=== PATIENT | male | born 1995 | race Caucasian/White ===

== ENCOUNTER 2018-06-25 21:59 | Inpatient (IN) | payer BC, OTHER ==
[2018-06-25] MEDS ORDERED: Sodium Chloride 0.9% 1,000 ML IV SCH ×2 (22:15→22:45)
--- NOTE | 2018-06-25 22:20 | EDM.PDOC ---
ED HPI GENERAL MEDICAL PROBLEM - General Chief Complaint: Diabetic Complaint Stated Complaint: BLOOD SUGARS Time Seen by Provider: 06/25/18 22:20 Source of Information: Reports: Patient History Limitations: Reports: No Limitations - History of Present Illness INITIAL COMMENTS - FREE TEXT/NARRATIVE: pt arrived with a history of type 1 diabetes. He has not felt well for several days and particularly today. He has been nauseated and has been exhausted. His sugars are high but he has not taken extra insulin. Onset: Gradual Duration: Day(s):, Getting Worse Associated Symptoms: Reports: Loss of Appetite, Nausea/Vomiting denies pain Pain Score (Numeric/FACES): 0 - Related Data Allergies Allergy/AdvReac Type Severity Reaction Status Date / Time No Known Allergies Allergy Verified 06/25/18 22:05 Home Meds: Home Meds Insulin Aspart [NovoLOG] 1 unit SUBCUT ACBED #3 pen 05/14/14 [Rx] Insulin Detemir [Levemir] 40 unit SUBCUT QPM 06/25/18 [History] Past Medical History - Past Health History Medical/Surgical History: Denies Medical/Surgical History Social & Family History - Tobacco Use Smoking Status *Q: Never Smoker - Recreational Drug Use Recreational Drug Use: No ED ROS GENERAL - Review of Systems Review Of Systems: See Below Constitutional: Reports: No Symptoms HEENT: Reports: No Symptoms Respiratory: Reports: No Symptoms Cardiovascular: Reports: No Symptoms Endocrine: Reports: Fatigue, High Glucose GI/Abdominal: Reports: Nausea, Vomiting : Reports: No Symptoms Musculoskeletal: Reports: No Symptoms Skin: Reports: No Symptoms Neurological: Reports: No Symptoms Psychiatric: Reports: No Symptoms ED EXAM GENERAL NO PERIP PULSE - Physical Exam Exam: See Below Text/Narrative:: pt arrived very lethargic and feeling sick to his stomach. He is not confused. He vomited after arrival and does feel better. Exam Limited By: No Limitations General Appearance: Alert, Moderate Distress, Other (pupils equal and reactive, ) Ears: Normal TMs Nose: Normal Inspection Throat/Mouth: Normal Inspection Head: Atraumatic Neck: Normal Inspection Respiratory/Chest: No Respiratory Distress Cardiovascular: Regular Rate, Rhythm GI/Abdominal: Soft, Non-Tender (Male) Exam: Deferred Rectal (Males) Exam: Deferred Extremities: Normal Inspection Psychiatric: Normal Affect Course - Vital Signs Last Recorded V/S: Last Vital Signs Temp 35.7 C 06/25/18 22:06 Pulse 100 06/25/18 22:06 Resp 18 06/25/18 22:06 BP 119/66 06/25/18 22:06 Pulse Ox 96 06/25/18 22:06 - Orders/Labs/Meds Orders: Active Orders 24 hr Category Date Time Status GLUCOSE POC LAB TO COLLECT [POC] Stat Lab 06/25/18 22:26 Received UA W/MICROSCOPIC [URIN] Urgent Lab 06/25/18 22:26 Received Insulin Regular, Human [NovoLIN R] 100 unit Med 06/25/18 23:00 Ordered Sodium Chloride 0.9% [Normal Saline] 100 ml IV TITRATE Sodium Chloride 0.9% [Normal Saline] 1,000 ml Med 06/25/18 22:15 Active IV ASDIRECTED Sodium Chloride 0.9% [Normal Saline] 1,000 ml Med 06/25/18 22:45 Active IV ASDIRECTED Medication Orders Sodium Chloride (Normal Saline) 1,000 mls @ 999 mls/hr IV ASDIRECTED JOSEF Last Admin: 06/25/18 22:18 Dose: 999 mls/hr Sodium Chloride (Normal Saline) 1,000 mls @ 999 mls/hr IV ASDIRECTED JOSEF Insulin Human Regular 100 unit (/ Sodium Chloride) 100 mls @ 19.05 mls/hr IV TITRATE JOSEF; Protocol Labs: Laboratory Tests 06/25/18 06/25/18 06/25/18 Range/Units 22:26 22:26 22:26 WBC 19.3 H (4.5-11.0) K/uL RBC 5.71 (4.30-5.90) M/uL Hgb 17.4 H (12.0-15.0) g/dL Hct 49.5 (40.0-54.0) % MCV 87 (80-98) fL MCH 31 (27-31) pg MCHC 35 (32-36) % Plt Count 408 H (150-400) K/uL Neut % (Auto) 87 H (36-66) % Lymph % (Auto) 9 L (24-44) % [place] % (Auto) 3 (2-6) % Eos % (Auto) 0 L (2-4) % Baso % (Auto) 0 (0-1) % VBG pH (7.350-7.450) Sodium 133 L (140-148) mmol/L Potassium 4.8 (3.6-5.2) mmol/L Chloride 94 L (100-108) mmol/L Carbon Dioxide 10 L (21-32) mmol/L Anion Gap 33.8 H (5.0-14.0) mmol/L BUN 27 H D (7-18) mg/dL Creatinine 1.4 H D (0.8-1.3) mg/dL Est Cr Clr Drug Dosing 85.46 mL/min Estimated GFR (MDRD) > 60 (>60) Glucose 553 H* (74-106) mg/dL Calcium 9.7 D (8.5-10.1) mg/dL Total Bilirubin 0.7 (0.2-1.0) mg/dL AST 14 L (15-37) U/L ALT 29 (12-78) U/L Alkaline Phosphatase 142 H (46-116) U/L Total Protein 8.0 (6.4-8.2) g/dL Albumin 4.3 (3.4-5.0) g/dL Globulin 3.7 H (2.3-3.5) g/dL Albumin/Globulin Ratio 1.2 (1.2-2.2) Urine Color Yellow Urine Appearance Clear Urine pH 5.0 (4.5-8.0) Ur Specific [place] 1.020 (1.008-1.030) Urine Protein Negative (NEGATIVE) mg/dL Urine Glucose (UA) 1000 H (NEGATIVE) mg/dL Urine Ketones 150 H (NEGATIVE) mg/dL Urine Occult Blood Negative (NEGATIVE) Urine Nitrite Negative (NEGAITVE) Urine Bilirubin Negative (NEGATIVE) Urine Urobilinogen Normal (NORMAL) mg/dL Ur Leukocyte Esterase Negative (NEGATIVE) Urine RBC 0-5 (0-5) Urine WBC 0-5 (0-5) Ur Epithelial Cells Rare Amorphous Sediment Few Urine Bacteria Rare Urine Mucus Few 06/25/18 Range/Units 22:26 WBC (4.5-11.0) K/uL RBC (4.30-5.90) M/uL Hgb (12.0-15.0) g/dL Hct (40.0-54.0) % MCV (80-98) fL MCH (27-31) pg MCHC (32-36) % Plt Count (150-400) K/uL Neut % (Auto) (36-66) % Lymph % (Auto) (24-44) % [place] % (Auto) (2-6) % Eos % (Auto) (2-4) % Baso % (Auto) (0-1) % VBG pH 7.152 L (7.350-7.450) Sodium (140-148) mmol/L Potassium (3.6-5.2) mmol/L Chloride (100-108) mmol/L Carbon Dioxide (21-32) mmol/L Anion Gap (5.0-14.0) mmol/L BUN (7-18) mg/dL Creatinine (0.8-1.3) mg/dL Est Cr Clr Drug Dosing mL/min Estimated GFR (MDRD) (>60) Glucose (74-106) mg/dL Calcium (8.5-10.1) mg/dL Total Bilirubin (0.2-1.0) mg/dL AST (15-37) U/L ALT (12-78) U/L Alkaline Phosphatase (46-116) U/L Total Protein (6.4-8.2) g/dL Albumin (3.4-5.0) g/dL Globulin (2.3-3.5) g/dL Albumin/Globulin Ratio (1.2-2.2) Urine Color Urine Appearance Urine pH (4.5-8.0) Ur Specific [place] (1.008-1.030) Urine Protein (NEGATIVE) mg/dL Urine Glucose (UA) (NEGATIVE) mg/dL Urine Ketones (NEGATIVE) mg/dL Urine Occult Blood (NEGATIVE) Urine Nitrite (NEGAITVE) Urine Bilirubin (NEGATIVE) Urine Urobilinogen (NORMAL) mg/dL Ur Leukocyte Esterase (NEGATIVE) Urine RBC (0-5) Urine WBC (0-5) Ur Epithelial Cells Amorphous Sediment Urine Bacteria Urine Mucus Meds: Medications Generic Name Dose Route Start Last Admin Trade Name Freq PRN Reason Stop Dose Admin Sodium Chloride 1,000 mls @ 999 mls/hr 06/25/18 22:15 06/25/18 22:18 Normal Saline IV 999 mls/hr ASDIRECTED JOSEF Administration Sodium Chloride 1,000 mls @ 999 mls/hr 06/25/18 22:45 Normal Saline IV ASDIRECTED JOSEF Insulin Human Regular 100 unit 100 mls @ 19.05 mls/hr 06/25/18 23:00 / Sodium Chloride IV TITRATE JOSEF Protocol 0.2 UNITS/KG/HR Discontinued Medications Generic Name Dose Route Start Last Admin Trade Name Carloz PRN Reason Stop Dose Admin Insulin Human Regular 5 unit 06/25/18 23:00 Novolin R IVPUSH 06/25/18 23:01 ONETIME ONE Protocol Ondansetron HCl 4 mg 06/25/18 22:44 06/25/18 22:52 Zofran IVPUSH 06/25/18 22:45 4 mg ONETIME ONE Administration - Re-Assessments/Exams Free Text/Narrative Re-Assessment/Exam: 06/25/18 23:03 Because his bs has been high he has been working with the dietian to get it down. He works in [employer] at [employer] so he does do alot of walking. He does not exercise regularly otherwise. He does work [employer] so his scheduling of his insulin is difficult. 06/25/18 23:06 pt has a ph of 7.1 and he has a high anion gap. He will be started on a insulin drip and he will be given insulin--regular 5 units. --iv. Departure - Departure Time of Disposition: 23:08 Disposition: Admitted As Inpatient 66 Condition: Fair Clinical Impression: Diabetic ketoacidosis, Dehydration - Discharge Information Referrals: Ravin Loco MD [Primary Care Provider] - Forms: ED Department Discharge Care Plan Goals: admit to Dr Her. - My Orders Last 24 Hours: My Active Orders 06/25/18 22:15 Sodium Chloride 0.9% [Normal Saline] 1,000 ml IV ASDIRECTED 06/25/18 22:26 GLUCOSE POC LAB TO COLLECT [POC] Stat UA W/MICROSCOPIC [URIN] Urgent 06/25/18 22:45 Sodium Chloride 0.9% [Normal Saline] 1,000 ml IV ASDIRECTED 06/25/18 23:00 Insulin Regular, Human [NovoLIN R] 100 unit Sodium Chloride 0.9% [Normal Saline] 100 ml IV TITRATE - Assessment/Plan Last 24 Hours: My Active Orders 06/25/18 22:15 Sodium Chloride 0.9% [Normal Saline] 1,000 ml IV ASDIRECTED 06/25/18 22:26 GLUCOSE POC LAB TO COLLECT [POC] Stat UA W/MICROSCOPIC [URIN] Urgent 06/25/18 22:45 Sodium Chloride 0.9% [Normal Saline] 1,000 ml IV ASDIRECTED 06/25/18 23:00 Insulin Regular, Human [NovoLIN R] 100 unit Sodium Chloride 0.9% [Normal Saline] 100 ml IV TITRATE
[2018-06-25] MEDS ORDERED: Ondansetron 4 MG/2 ML SDV IVPUSH ONE (22:44)
[2018-06-25] MEDS ORDERED: Insulin Regular, Human 100 Units/ML 10 ML Vial IVPUSH ONE (23:00)
--- NOTE | 2018-06-25 23:57 | PCM.HP ---
H&P History of Present Illness - General Date of Service: 06/25/18 Admit Problem/Dx: Admission Diagnosis/Problem Admission Diagnosis/Problem Diabetic ketoacidosis Source of Information: Patient, Family, Provider History Limitations: Reports: No Limitations - History of Present Illness Initial Comments - Free Text/Narative: Adam presents to the emergency room tonight with nausea, fatigue and hyperglycemia. He reports that he has not felt well over the last several days with fatigue and some nausea. Blood sugars have been running between 250 and 350 but this is his usual level. He reports he has been working with diabetic educators but doesn't seem to make any progress with his blood sugars. This afternoon around 4 PM he developed palpitations, profound fatigue as well as progressive nausea. He was very sleepy. He did not report headache, shortness of breath or abdominal pain. He did have one episode of emesis in the emergency room this evening. He reports that his blood sugars also jumped up greater than 500 afternoon/evening. He was not eating anything so he elected not to take extra insulin at that time. He has not had any fevers. He is not aware of any sick contacts. No reports of cough, sore throat or urinary symptoms. Workup in the emergency room was suggestive of diabetic ketoacidosis with significant hyperglycemia, elevated anion gap and ketones in the urine. His venous pH was 7.1. He also has a white blood cell count of 19,000 but no strong evidence for infection. He has received 5 units of insulin as well as IV fluids and will be admitted for further management. denies pain Pain Score (Numeric/FACES): 0 - Related Data Allergies/Adverse Reactions: Allergies Allergy/AdvReac Type Severity Reaction Status Date / Time No Known Allergies Allergy Verified 06/25/18 22:05 Home Medications: Home Meds Insulin Aspart [NovoLOG] 1 unit SUBCUT ACBED #3 pen 05/14/14 [Rx] Insulin Detemir [Levemir] 40 unit SUBCUT QPM 06/25/18 [History] Past Medical History - Past Health History Medical/Surgical History: Denies Medical/Surgical History Endocrine/Metabolic History: Reports: Diabetes, Type I - Infectious Disease History Infectious Disease History: Reports: Chicken Pox Social & Family History - Family History Endocrine/Metabolic: Denies: Diabetes, Type I - Tobacco Use Smoking Status *Q: Never Smoker - Alcohol Use Alcohol Use History: No - Recreational Drug Use Recreational Drug Use: No H&P Review of Systems - Review of Systems: Review Of Systems: See Below Free Text/Narrative: A complete 12 point review of systems was obtained. Pertinent positives and negatives are noted in the history of present illness. All other systems were reviewed and were negative except as noted. Exam - Exam Exam: See Below - Vital Signs Vital Signs: Last Vital Signs Temp 35.7 C 06/25/18 22:06 Pulse 100 06/25/18 22:06 Resp 18 06/25/18 22:06 BP 119/66 06/25/18 22:06 Pulse Ox 96 06/25/18 22:06 Weight: 95.254 kg - Exam Quality Assessment: No: Supplemental Oxygen General: Alert, Oriented, Cooperative. No: Mild Distress HEENT: Conjunctiva Clear. No: Mucosa Moist & [place] (dry), Scleral Icterus Neck: Supple, Trachea Midline. No: Lymphadenopathy Lungs: Clear to Auscultation, Normal Respiratory Effort Cardiovascular: Regular Rhythm, Tachycardia. No: Systolic Murmur GI/Abdominal Exam: Normal Bowel Sounds, Soft, Non-Tender, No Distention Back Exam: Normal Inspection, Full Range of Motion Extremities: No Pedal Edema. No: Increased Warmth Skin: Warm, Dry Neuro Extensive - Mental Status: Alert, Oriented x3, Nl Response to Commands Neuro Extensive - Motor, Sensory, Reflexes: CN II-XII Intact. No: Dysarthria, Abnormal Motor, Tremor Psychiatric: Alert, Normal Affect - Patient Data Lab Results Last 24 hrs: Laboratory Results - last 24 hr 06/25/18 06/25/18 06/25/18 Range/Units 22:26 22:26 22:26 WBC 19.3 H (4.5-11.0) K/uL RBC 5.71 (4.30-5.90) M/uL Hgb 17.4 H (12.0-15.0) g/dL Hct 49.5 (40.0-54.0) % MCV 87 (80-98) fL MCH 31 (27-31) pg MCHC 35 (32-36) % Plt Count 408 H (150-400) K/uL Neut % (Auto) 87 H (36-66) % Lymph % (Auto) 9 L (24-44) % [place] % (Auto) 3 (2-6) % Eos % (Auto) 0 L (2-4) % Baso % (Auto) 0 (0-1) % VBG pH (7.350-7.450) Sodium 133 L (140-148) mmol/L Potassium 4.8 (3.6-5.2) mmol/L Chloride 94 L (100-108) mmol/L Carbon Dioxide 10 L (21-32) mmol/L Anion Gap 33.8 H (5.0-14.0) mmol/L BUN 27 H D (7-18) mg/dL Creatinine 1.4 H D (0.8-1.3) mg/dL Est Cr Clr Drug Dosing 85.46 mL/min Estimated GFR (MDRD) > 60 (>60) Glucose 553 H* (74-106) mg/dL Calcium 9.7 D (8.5-10.1) mg/dL Total Bilirubin 0.7 (0.2-1.0) mg/dL AST 14 L (15-37) U/L ALT 29 (12-78) U/L Alkaline Phosphatase 142 H (46-116) U/L Total Protein 8.0 (6.4-8.2) g/dL Albumin 4.3 (3.4-5.0) g/dL Globulin 3.7 H (2.3-3.5) g/dL Albumin/Globulin Ratio 1.2 (1.2-2.2) Urine Color Yellow Urine Appearance Clear Urine pH 5.0 (4.5-8.0) Ur Specific [place] 1.020 (1.008-1.030) Urine Protein Negative (NEGATIVE) mg/dL Urine Glucose (UA) 1000 H (NEGATIVE) mg/dL Urine Ketones 150 H (NEGATIVE) mg/dL Urine Occult Blood Negative (NEGATIVE) Urine Nitrite Negative (NEGAITVE) Urine Bilirubin Negative (NEGATIVE) Urine Urobilinogen Normal (NORMAL) mg/dL Ur Leukocyte Esterase Negative (NEGATIVE) Urine RBC 0-5 (0-5) Urine WBC 0-5 (0-5) Ur Epithelial Cells Rare Amorphous Sediment Few Urine Bacteria Rare Urine Mucus Few 06/25/18 Range/Units 22:26 WBC (4.5-11.0) K/uL RBC (4.30-5.90) M/uL Hgb (12.0-15.0) g/dL Hct (40.0-54.0) % MCV (80-98) fL MCH (27-31) pg MCHC (32-36) % Plt Count (150-400) K/uL Neut % (Auto) (36-66) % Lymph % (Auto) (24-44) % [place] % (Auto) (2-6) % Eos % (Auto) (2-4) % Baso % (Auto) (0-1) % VBG pH 7.152 L (7.350-7.450) Sodium (140-148) mmol/L Potassium (3.6-5.2) mmol/L Chloride (100-108) mmol/L Carbon Dioxide (21-32) mmol/L Anion Gap (5.0-14.0) mmol/L BUN (7-18) mg/dL Creatinine (0.8-1.3) mg/dL Est Cr Clr Drug Dosing mL/min Estimated GFR (MDRD) (>60) Glucose (74-106) mg/dL Calcium (8.5-10.1) mg/dL Total Bilirubin (0.2-1.0) mg/dL AST (15-37) U/L ALT (12-78) U/L Alkaline Phosphatase (46-116) U/L Total Protein (6.4-8.2) g/dL Albumin (3.4-5.0) g/dL Globulin (2.3-3.5) g/dL Albumin/Globulin Ratio (1.2-2.2) Urine Color Urine Appearance Urine pH (4.5-8.0) Ur Specific [place] (1.008-1.030) Urine Protein (NEGATIVE) mg/dL Urine Glucose (UA) (NEGATIVE) mg/dL Urine Ketones (NEGATIVE) mg/dL Urine Occult Blood (NEGATIVE) Urine Nitrite (NEGAITVE) Urine Bilirubin (NEGATIVE) Urine Urobilinogen (NORMAL) mg/dL Ur Leukocyte Esterase (NEGATIVE) Urine RBC (0-5) Urine WBC (0-5) Ur Epithelial Cells Amorphous Sediment Urine Bacteria Urine Mucus Result Diagrams: 06/25/18 22:26 06/25/18 22:26 *Q Meaningful Use (ADM) - VTE Risk Assess *Q Each Risk Factor Represents 1 Point: None Total Score 1 Point Risk Factors: 0 Each Risk Factor Represents 2 Points: None Total Score 2 Point Risk Factors: 0 Each Risk Factor Represents 3 Points: None Total Score 3 Point Risk Factors: 0 Each Risk Factor Represents 5 Points: None Total Score 5 Point Risk Factors: 0 Venous Thromboembolism Risk Factor Score *Q: 0 - Problem List (1) Ketoacidosis in type I diabetes mellitus SNOMED Code(s): 237166289 ICD Code: E10.10 - TYPE 1 DIABETES MELLITUS WITH KETOACIDOSIS WITHOUT COMA Status: Acute Current Visit: No Problem List Initiated/Reviewed/Updated: Yes Orders Last 24hrs: Active Orders 24 hr Category Date Time Status Patient Status Manage Transfer [TRANSFER] Routine ADT 06/25/18 23:49 Ordered GLUCOSE POC LAB TO COLLECT [POC] Stat Lab 06/25/18 22:26 Received UA W/MICROSCOPIC [URIN] Urgent Lab 06/25/18 22:26 Ordered Insulin Regular, Human [NovoLIN R] 100 unit Med 06/25/18 23:00 Active Sodium Chloride 0.9% [Normal Saline] 100 ml IV TITRATE Sodium Chloride 0.9% [Normal Saline] 1,000 ml Med 06/25/18 22:15 Active IV ASDIRECTED Sodium Chloride 0.9% [Normal Saline] 1,000 ml Med 06/25/18 22:45 Active IV ASDIRECTED Resuscitation Status Routine Resus Stat 06/25/18 23:49 Ordered Medication Orders Sodium Chloride (Normal Saline) 1,000 mls @ 999 mls/hr IV ASDIRECTED JOSEF Last Admin: 06/25/18 22:18 Dose: 999 mls/hr Sodium Chloride (Normal Saline) 1,000 mls @ 999 mls/hr IV ASDIRECTED JOSEF Last Admin: 06/25/18 23:20 Dose: 999 mls/hr Insulin Human Regular 100 unit (/ Sodium Chloride) 100 mls @ 9.52 mls/hr IV TITRATE JOSEF; Protocol Assessment/Plan Comment:: ASSESSMENT AND PLAN - Diabetic ketoacidosis - no evidence for infection at this time and patient does not report any alcohol or illicit substance use. I suspect his troubles are related to medically elevated blood sugars with worsening throughout the day today. He reports poor control at home. He is feeling better with some IV fluids and anti-nausea medication. Blood sugar significantly elevated and anion gap is greater than 30. -Start insulin infusion -Every hour Accu-Cheks -Repeat anion gap and chemistry panel at 5 AM -Continue normal saline until anion gap is closed, changed to D5 normal saline if anion gap remains elevated but blood sugar begins to normalize -Diabetic education tomorrow -Transition to subcutaneous insulin once anion gap has normalized Type 1 diabetes mellitus - suboptimal control reported, patient reports he is working with the tobacco educator. Currently taking 2 units per 15 g of carbohydrate and 40 units of Lantus at bedtime. -Diabetic education -Transition to subcutaneous as above Maintenance issues - - DVT prophylaxis - mechanical - GI prophylaxis - not indicated - Nutrition - clear liquids - [place] catheter - not indicated CODE STATUS - full code Admission justification - This patient will be admitted for inpatient services and is medically appropriate meeting medical necessity for inpatient admission as outlined in my documentation. I reasonably expect the patient will require inpatient services that span a period time over 2 midnights. I reasonably expect this patient to be discharged or transferred within 96 hours [facility]. Disposition - anticipate discharge to home Primary care physician - Dr Claudy Her M.D.
[2018-06-26] MEDS ORDERED: Acetaminophen 325 MG Tab PO PRN (00:46)
[2018-06-26] MEDS ORDERED: Ibuprofen 400 MG Tab PO PRN (00:46)
[2018-06-26] MEDS ORDERED: Ondansetron 4 MG/2 ML SDV IV PRN (00:46)
[2018-06-26] MEDS ORDERED: LORazepam 2 MG/ML SDV IVPUSH PRN (00:46)
[2018-06-26] MEDS ORDERED: Sodium Chloride 0.9% 1,000 ML IV SCH (00:46)
[2018-06-26] MEDS ORDERED: Ondansetron 4 MG Tab.DIS PO PRN (00:46)
[2018-06-26] MEDS ORDERED: Dextrose 5%-0.9% NaCl 1,000 ML IV SCH (05:30)
[2018-06-26] MEDS ORDERED: Insulin Detemir 100 Units/ML 3 ML Pen SUBCUT ONE (14:47)
[2018-06-26] MEDS ORDERED: Insulin Aspart 100 Units/ML 3 ML Pen SUBCUT SCH (17:00)
--- NOTE | 2018-06-26 18:39 | PCM.DCSUM1 ---
Discharge Summary - Hospital Course Brief History: 22-year-old male with type 1 diabetes mellitus who presented with several days of fatigue and nausea complicated by acute hyperglycemia and worsening nausea. He was admitted for management of diabetic ketoacidosis. Diagnosis: Stroke: No - Discharge Data Discharge Date: 06/26/18 Discharge Disposition: Home, Self-Care 01 Condition: Good - Patient Summary/Data Hospital Course: Adam presented to the emergency room with worsening nausea as well as acute hyperglycemia. Workup in the emergency room revealed leukocytosis and evidence for diabetic ketoacidosis. He received a dose of IV insulin in the emergency room and then was started on an insulin infusion. He received 2 L of IV fluid in the emergency room. He was admitted to the intensive care unit for insulin infusion. Blood sugars trended down throughout the night after admission. 4 hours after the insulin drip was started we rechecked his electrolytes and his anion gap remained elevated at more than 20. We continued the insulin drip until his blood sugar was below 200 and at that point because the anion gap was still elevated we started him on a dextrose containing saline. Repeat laboratory testing 4 hours after the litigation claim representative check revealed that his anion gap remained mildly elevated. We continue the insulin drip dextrose- containing saline for an additional 4 hours. At this point his anion gap had normalized. We discontinue the insulin infusion about one hour after he received his evening dose of long-acting insulin. Blood sugars have remained stable since that time. His nausea has resolved and he tolerated supper with no difficulty. He has not had any abdominal pain or fevers. I suspect that the episode of DKA was caused by a smoldering hyperglycemia with more acute decompensation on the evening of presentation. He has been working with the coding educator. He has follow-up scheduled early next week. No changes to his medication regimen were made. - Patient Instructions Diet: Diabetic Diet Activity: As Tolerated Driving: May Drive Today Showering/Bathing: May Shower Notify Provider of: Fever, Increased Pain, Nausea and/or Vomiting Other/Special Instructions: 1. You were in the hospital for management of type 1 diabetes with ketoacidosis. I suspect the episode was caused by a slow progression of hyperglycemia. There was no evidence for infection. Blood sugars have improved with hydration and insulin infusion. I would recommend that you continue your usual regimen at home with long-acting at night as well as mealtime insulin. Please follow-up as scheduled with your coding educator. 2. Please seek medical attention if you develop fever greater than 101, you have registered dental assistant rda abdominal pain or persistent vomiting. - Discharge Plan *PRESCRIPTION DRUG MONITORING PROGRAM REVIEWED*: Not Applicable *COPY OF PRESCRIPTION DRUG MONITORING REPORT IN PATIENT HERBERT: Not Applicable Home Medications: Home Meds Insulin Aspart [NovoLOG] 1 unit SUBCUT ACBED #3 pen 05/14/14 [Rx] Insulin Detemir [Levemir] 40 unit SUBCUT QPM 06/25/18 [History] Patient Handouts: Diabetic Ketoacidosis Referrals: Ravin Loco MD [Primary Care Provider] - (follow-up in 1-2 weeks if your blood sugars do not stabilize) - Discharge Summary/Plan Comment DC Time >30 min.: No - Patient Data Vitals - Most Recent: Last Vital Signs Temp 36.3 C 06/26/18 18:00 Pulse 84 06/26/18 18:00 Resp 17 06/26/18 18:00 BP 96/53 L 06/26/18 18:00 Pulse Ox 98 06/26/18 18:00 Weight - Most Recent: 94.166 kg I&O - Last 24 hours: Intake & Output 06/26/18 06/26/18 06/26/18 06:59 14:59 22:59 Intake Total 1075 880 Output Total 800 850 Balance 275 30 Lab Results - Last 24 hrs: Laboratory Results - last 24 hr 06/25/18 06/25/18 06/25/18 Range/Units 22:26 22:26 22:26 WBC 19.3 H (4.5-11.0) K/uL RBC 5.71 (4.30-5.90) M/uL Hgb 17.4 H (12.0-15.0) g/dL Hct 49.5 (40.0-54.0) % MCV 87 (80-98) fL MCH 31 (27-31) pg MCHC 35 (32-36) % Plt Count 408 H (150-400) K/uL Neut % (Auto) 87 H (36-66) % Lymph % (Auto) 9 L (24-44) % Lucas % (Auto) 3 (2-6) % Eos % (Auto) 0 L (2-4) % Baso % (Auto) 0 (0-1) % VBG pH (7.350-7.450) Sodium 133 L (140-148) mmol/L Potassium 4.8 (3.6-5.2) mmol/L Chloride 94 L (100-108) mmol/L Carbon Dioxide 10 L (21-32) mmol/L Anion Gap 33.8 H (5.0-14.0) mmol/L BUN 27 H D (7-18) mg/dL Creatinine 1.4 H D (0.8-1.3) mg/dL Est Cr Clr Drug Dosing 85.46 mL/min Estimated GFR (MDRD) > 60 (>60) Glucose 553 H* (74-106) mg/dL Calcium 9.7 D (8.5-10.1) mg/dL Magnesium (1.8-2.4) mg/dL Total Bilirubin 0.7 (0.2-1.0) mg/dL AST 14 L (15-37) U/L ALT 29 (12-78) U/L Alkaline Phosphatase 142 H (46-116) U/L Total Protein 8.0 (6.4-8.2) g/dL Albumin 4.3 (3.4-5.0) g/dL Globulin 3.7 H (2.3-3.5) g/dL Albumin/Globulin Ratio 1.2 (1.2-2.2) Urine Color Yellow Urine Appearance Clear Urine pH 5.0 (4.5-8.0) Ur Specific [place] 1.020 (1.008-1.030) Urine Protein Negative (NEGATIVE) mg/dL Urine Glucose (UA) 1000 H (NEGATIVE) mg/dL Urine Ketones 150 H (NEGATIVE) mg/dL Urine Occult Blood Negative (NEGATIVE) Urine Nitrite Negative (NEGAITVE) Urine Bilirubin Negative (NEGATIVE) Urine Urobilinogen Normal (NORMAL) mg/dL Ur Leukocyte Esterase Negative (NEGATIVE) Urine RBC 0-5 (0-5) Urine WBC 0-5 (0-5) Ur Epithelial Cells Rare Amorphous Sediment Few Urine Bacteria Rare Urine Mucus Few 06/25/18 06/26/18 06/26/18 Range/Units 22:26 05:35 05:35 WBC 16.6 H (4.5-11.0) K/uL RBC 5.12 (4.30-5.90) M/uL Hgb 15.2 H D (12.0-15.0) g/dL Hct 44.3 (40.0-54.0) % MCV 87 (80-98) fL MCH 30 (27-31) pg MCHC 34 (32-36) % Plt Count 329 (150-400) K/uL Neut % (Auto) (36-66) % Lymph % (Auto) (24-44) % Lucas % (Auto) (2-6) % Eos % (Auto) (2-4) % Baso % (Auto) (0-1) % VBG pH 7.152 L (7.350-7.450) Sodium 137 L (140-148) mmol/L Potassium 4.5 (3.6-5.2) mmol/L Chloride 105 (100-108) mmol/L Carbon Dioxide 16 L (21-32) mmol/L Anion Gap 20.5 H (5.0-14.0) mmol/L BUN 22 H (7-18) mg/dL Creatinine 1.2 (0.8-1.3) mg/dL Est Cr Clr Drug Dosing 99.70 mL/min Estimated GFR (MDRD) > 60 (>60) Glucose 140 H (74-106) mg/dL Calcium 8.3 L (8.5-10.1) mg/dL Magnesium 2.0 (1.8-2.4) mg/dL Total Bilirubin (0.2-1.0) mg/dL AST (15-37) U/L ALT (12-78) U/L Alkaline Phosphatase (46-116) U/L Total Protein (6.4-8.2) g/dL Albumin (3.4-5.0) g/dL Globulin (2.3-3.5) g/dL Albumin/Globulin Ratio (1.2-2.2) Urine Color Urine Appearance Urine pH (4.5-8.0) Ur Specific [place] (1.008-1.030) Urine Protein (NEGATIVE) mg/dL Urine Glucose (UA) (NEGATIVE) mg/dL Urine Ketones (NEGATIVE) mg/dL Urine Occult Blood (NEGATIVE) Urine Nitrite (NEGAITVE) Urine Bilirubin (NEGATIVE) Urine Urobilinogen (NORMAL) mg/dL Ur Leukocyte Esterase (NEGATIVE) Urine RBC (0-5) Urine WBC (0-5) Ur Epithelial Cells Amorphous Sediment Urine Bacteria Urine Mucus 06/26/18 06/26/18 Range/Units 10:00 13:50 WBC (4.5-11.0) K/uL RBC (4.30-5.90) M/uL Hgb (12.0-15.0) g/dL Hct (40.0-54.0) % MCV (80-98) fL MCH (27-31) pg MCHC (32-36) % Plt Count (150-400) K/uL Neut % (Auto) (36-66) % Lymph % (Auto) (24-44) % Lucas % (Auto) (2-6) % Eos % (Auto) (2-4) % Baso % (Auto) (0-1) % VBG pH (7.350-7.450) Sodium 137 L 137 L (140-148) mmol/L Potassium 4.0 3.7 (3.6-5.2) mmol/L Chloride 106 107 (100-108) mmol/L Carbon Dioxide 18 L 21 (21-32) mmol/L Anion Gap 17.0 H 12.7 (5.0-14.0) mmol/L BUN 19 H 17 (7-18) mg/dL Creatinine 1.2 1.1 (0.8-1.3) mg/dL Est Cr Clr Drug Dosing 99.70 108.76 mL/min Estimated GFR (MDRD) > 60 > 60 (>60) Glucose 154 H 123 H (74-106) mg/dL Calcium 8.2 L 8.1 L (8.5-10.1) mg/dL Magnesium (1.8-2.4) mg/dL Total Bilirubin (0.2-1.0) mg/dL AST (15-37) U/L ALT (12-78) U/L Alkaline Phosphatase (46-116) U/L Total Protein (6.4-8.2) g/dL Albumin (3.4-5.0) g/dL Globulin (2.3-3.5) g/dL Albumin/Globulin Ratio (1.2-2.2) Urine Color Urine Appearance Urine pH (4.5-8.0) Ur Specific [place] (1.008-1.030) Urine Protein (NEGATIVE) mg/dL Urine Glucose (UA) (NEGATIVE) mg/dL Urine Ketones (NEGATIVE) mg/dL Urine Occult Blood (NEGATIVE) Urine Nitrite (NEGAITVE) Urine Bilirubin (NEGATIVE) Urine Urobilinogen (NORMAL) mg/dL Ur Leukocyte Esterase (NEGATIVE) Urine RBC (0-5) Urine WBC (0-5) Ur Epithelial Cells Amorphous Sediment Urine Bacteria Urine Mucus Med Orders - Current: Current Medications Acetaminophen (Tylenol) 650 mg PO Q4H PRN PRN Reason: Pain (Mild 1-3)/fever Ibuprofen (Motrin) 400 mg PO Q6H PRN PRN Reason: Pain (mild 1-3) Insulin Aspart (Novolog) 0 unit SUBCUT TIDMEALS [facility] Last Admin: 06/26/18 18:22 Dose: Not Given Lorazepam (Ativan) 0.5 - 1 mg IVPUSH Q4H PRN PRN Reason: Nausea/Vomiting Ondansetron HCl (Zofran Odt) 4 mg PO Q6H PRN PRN Reason: Nausea able to take PO Ondansetron HCl (Zofran) 4 mg IV Q6H PRN PRN Reason: Nausea/Vomiting Discontinued Medications Sodium Chloride (Normal Saline) 1,000 mls @ 999 mls/hr IV ASDIRECTED [facility] Last Admin: 06/25/18 22:18 Dose: 999 mls/hr Sodium Chloride (Normal Saline) 1,000 mls @ 999 mls/hr IV ASDIRECTED [facility] Last Admin: 06/25/18 23:20 Dose: 999 mls/hr Insulin Human Regular 100 unit (/ Sodium Chloride) 100 mls @ 9.52 mls/hr IV TITRATE [facility]; Protocol Stop: 06/26/18 16:00 Last Titration: 06/26/18 05:16 Dose: 0.05 units/kg/hr, 5.3 mls/hr Sodium Chloride (Normal Saline) 1,000 mls @ 150 mls/hr IV ASDIRECTED [facility] Last Admin: 06/26/18 01:24 Dose: 150 mls/hr Dextrose/Sodium Chloride (Dextrose 5%-Normal Saline) 1,000 mls @ 100 mls/hr IV ASDIRECTED [facility] Insulin Detemir (Levemir) 40 unit SUBCUT ONETIME ONE Stop: 06/26/18 14:48 Last Admin: 06/26/18 15:26 Dose: 40 units Insulin Human Regular (Novolin R) 5 unit IVPUSH ONETIME ONE; Protocol Stop: 06/25/18 23:01 Last Admin: 06/25/18 23:12 Dose: 5 units Ondansetron HCl (Zofran) 4 mg IVPUSH ONETIME ONE Stop: 06/25/18 22:45 Last Admin: 06/25/18 22:52 Dose: 4 mg - Exam Quality Assessment: Denies: Supplemental Oxygen General: Reports: Alert, Oriented, Cooperative, No Acute Distress Lungs: Reports: Normal Respiratory Effort GI/Abdominal Exam: Soft, No Distention Extremities: No Pedal Edema Psy/Mental Status: Reports: Alert, Normal Affect
== END 2018-06-26 18:40 | disposition home or self-care (01) | DRG 639 ==
LOC: JP.ED 21:59 → JP.ICU 23:49
PROVIDERS: ADMIT Internal Medicine; ATTEND Internal Medicine
DX: E10.10 Type 1 diabetes mellitus with ketoacidosis without coma (principal); Z79.4 Long term (current) use of insulin; E86.0 Dehydration
CPT/HCPCS: 36415; 80048; 80053; 81001; 82800; 82962; 83735; 85025; 85027; 96361; 96374; 99285-25; A9270-GY; J2405; J7030

== ENCOUNTER 2021-09-21 06:21 | Inpatient (IN) | payer OTHER ==
[2021-09-21] MEDS ORDERED: Ondansetron 4 MG/2 ML SDV IVPUSH ONE (06:36)
[2021-09-21] MEDS ORDERED: Sodium Chloride 0.9% 1,000 ML IV SCH ×2 (06:45→13:15)
--- NOTE | 2021-09-21 07:24 | EDM.PDOC ---
ED HPI GENERAL MEDICAL PROBLEM - General Chief Complaint: Gastrointestinal Problem Stated Complaint: COVID POS-VOMITING DIABETIC Time Seen by Provider: 09/21/21 07:05 Source of Information: Reports: Patient, Old Records, RN History Limitations: Reports: No Limitations - History of Present Illness INITIAL COMMENTS - FREE TEXT/NARRATIVE: 25 yo male with IDDM and a positive recent Covid test presents with nausea and vomiting with onset early this AM. Was apparently dx the end of last week with Covid, but was pretty asymptomatic until this past weekend. Didn't check his BS last night, but was 350 when he awoke this AM. No blood in his emesis. No diarrhea. No abdominal pain. Has not discuss his illness with his primary care provider. Onset: Gradual Onset Date: 09/15/21 Duration: Day(s):, Getting Worse Location: Reports: Generalized Quality: Reports: Other (pain not reported) Severity: Severe (overall degree of illness) Improves with: Reports: None Worsens with: Reports: Other (time) Context: Reports: Other (See HPI) Associated Symptoms: Reports: Nausea/Vomiting. Denies: Cough, Fever/Chills Treatments POWER LINEWORKER: Reports: Other (see below) (none) Chest Pain Score (Numeric/FACES): 10 - Related Data Allergies Allergy/AdvReac Type Severity Reaction Status Date / Time No Known Allergies Allergy Verified 09/21/21 06:57 Home Meds: Home Meds Insulin Aspart [NovoLOG] 1 unit SUBCUT ACBED #3 pen 05/14/14 [Rx] Insulin Detemir [Levemir] 50 unit SUBCUT QPM 06/25/18 [History] Past Medical History - Past Health History Medical/Surgical History: Denies Medical/Surgical History HEENT History: Reports: Impaired Vision Endocrine/Metabolic History: Reports: Diabetes, Type I - Infectious Disease History Infectious Disease History: Reports: Chicken Pox, Novel Coronavirus Social & Family History - Tobacco Use Tobacco Use Status *Q: Never Tobacco User - Caffeine Use Caffeine Use: Reports: Coffee Caffeine Use Comment: occasional - Recreational Drug Use Recreational Drug Use: No ED ROS GENERAL - Review of Systems Review Of Systems: See Below Constitutional: Reports: Malaise. Denies: Fever, Chills HEENT: Reports: No Symptoms Respiratory: Reports: No Symptoms Cardiovascular: Reports: Lightheadedness Endocrine: Reports: High Glucose GI/Abdominal: Reports: Nausea, Vomiting : Reports: No Symptoms Musculoskeletal: Reports: No Symptoms Skin: Reports: No Symptoms Neurological: Reports: No Symptoms ED EXAM, GI/ABD - Physical Exam Exam: See Below Exam Limited By: No Limitations General Appearance: Alert, WD/WN, No Apparent Distress, Mild Distress Eyes: Bilateral: Normal Appearance Ears: Normal External Exam, Normal Canal, Hearing Grossly Normal Nose: Normal Inspection, No Blood Throat/Mouth: Normal Inspection, Normal Lips, Normal Oropharynx, Normal Voice, No Airway Compromise Head: Atraumatic, Normocephalic Neck: Normal Inspection Respiratory/Chest: Lungs Clear, Normal Breath Sounds, No Accessory Muscle Use, Other (tachypnea) Cardiovascular: Regular Rate, Rhythm, No Edema, Tachycardia GI/Abdominal Exam: Normal Bowel Sounds, Soft, Non-Tender, No Distention. No: Distended Back Exam: Normal Inspection. No: CVA Tenderness (R), CVA Tenderness (L) Extremities: Normal Inspection, Normal Range of Motion, Non-Tender, No Pedal Edema. No: Pedal Edema Neurological: Alert, Oriented, CN II-XII Intact, Normal Cognition, No Motor/Sens ory Deficits Psychiatric: Normal Affect, Normal Mood Skin Exam: Warm, Dry, Intact, Normal Color, No Rash #1 Interpretation EKG Date: 09/21/21 Time: 09:15 Rhythm: NSR Rate (Beats/Min): 98 [place]: RAD-Right [place] Deviation P-Wave: Present QRS: Normal ST-T: Normal QT: Normal Comparison: NA - No Prior EKG Course - Vital Signs Text/Narrative:: [facility] called for a transfer, has been put on their waiting list. No beds here. Last Recorded V/S: Last Vital Signs Temp 36.4 C 09/23/21 04:00 Pulse 75 09/23/21 06:00 Resp 22 H 09/23/21 06:00 BP 100/65 09/23/21 06:00 Pulse Ox 97 09/23/21 06:00 - Orders/Labs/Meds Orders: Medication Orders Acetaminophen (Acetaminophen 325 Mg Tab) 650 mg PO Q4H PRN PRN Reason: Pain (Mild 1-3)/fever Dextrose/Water (50% Dextrose In Water 50 Ml Syringe) 50 ml IVPUSH ONETIME PRN PRN Reason: Blood Glucose Enoxaparin Sodium (Enoxaparin 40 Mg/0.4 Ml Syringe) 40 mg SUBCUT Q24H [facility] Last Admin: 09/22/21 16:36 Dose: 40 mg Documented by: Admin: 09/21/21 15:22 Dose: 40 mg Documented by: ANURAG Sodium Chloride (Normal Saline) 2,000 mls @ 500 mls/hr IV .CONTINUOUS PRN PRN Reason: Blood Glucose Dextrose/Sodium Chloride (Dextrose 5%-1/2 Ns) 1,000 mls @ 150 mls/hr IV ASDIRECTED PRN PRN Reason: Blood Glucose Last Admin: 09/23/21 06:58 Dose: 150 mls/hr Documented by: Infusion: 09/23/21 06:58 Dose: 150 mls/hr Documented by: Admin: 09/23/21 00:21 Dose: 150 mls/hr Documented by: Infusion: 09/23/21 00:21 Dose: 150 mls/hr Documented by: Admin: 09/22/21 18:09 Dose: 150 mls/hr Documented by: Infusion: 09/22/21 18:09 Dose: 150 mls/hr Documented by: Admin: 09/22/21 11:56 Dose: 150 mls/hr Documented by: Infusion: 09/22/21 11:56 Dose: 150 mls/hr Documented by: Admin: 09/22/21 06:13 Dose: 150 mls/hr Documented by: Infusion: 09/22/21 04:11 Dose: 150 mls/hr Documented by: Admin: 09/21/21 21:30 Dose: 150 mls/hr Documented by: Infusion: 09/21/21 21:30 Dose: 150 mls/hr Documented by: Admin: 09/21/21 15:14 Dose: 150 mls/hr Documented by: ANURAG Potassium Chloride 20 meq/ (Premix) 100 mls @ 50 mls/hr IV Q2H PRN PRN Reason: Hypokalemia Magnesium Sulfate (Magnesium Sulfate In Water 2 Gm/50 Ml) 50 mls @ 25 mls/hr IV ONETIME PRN PRN Reason: low magnesium Last Admin: 09/21/21 21:25 Dose: 25 mls/hr Documented by: EDWARD Sodium Phosphate 60 mmole/ (Sodium Chloride) 270 mls @ 62.5 mls/hr IV ONETIME PRN PRN Reason: Low phophorus Insulin Regular in 0.9 % NACL (Myxredlin In Ns 100 Unit/100 Ml) 100 mls @ 10.886 mls/hr IV ASDIRECTED [facility]; Protocol Last Infusion: 09/23/21 06:56 Dose: 0.02 units/kg/hr, 2 mls/hr Documented by: EDWARD Lizamaigned by: ANNALISE Infusion: 09/23/21 06:09 Dose: 0.03 units/kg/hr, 3 mls/hr Documented by: EDWARD Lizamaigned by: ANNALISE Infusion: 09/23/21 05:08 Dose: 0.02 units/kg/hr, 2 mls/hr Documented by: EDWARD Lizamaigned by: ANNALISE Infusion: 09/23/21 04:12 Dose: 0.01 units/kg/hr, 1.5 mls/hr Documented by: EDWARD Cosigned by: THORKIR Infusion: 09/23/21 00:14 Dose: 0.02 units/kg/hr, 2 mls/hr Documented by: EDWARD Lizamaigned by: PINOLAU Infusion: 09/22/21 22:58 Dose: 0.03 units/kg/hr, 3 mls/hr Documented by: EDWARD Lizamaigned by: PINOLAU Infusion: 09/22/21 22:09 Dose: 0.04 units/kg/hr, 4 mls/hr Documented by: EDWARD Cosigned by: ANNALISE Infusion: 09/22/21 20:00 Dose: 0.03 units/kg/hr, 3 mls/hr Documented by: EDWARD Lizamaigned by: ANNALISE Infusion: 09/22/21 19:20 Dose: 0.04 units/kg/hr, 4.354 mls/hr Documented by: EDWARD Bhatia by: ANNALISE Infusion: 09/22/21 18:06 Dose: 0.05 units/kg/hr, 5 mls/hr Documented by: ANURAG Lizamaigned by: [id number] Infusion: 09/22/21 17:05 Dose: 0.04 units/kg/hr, 4 mls/hr Documented by: ANURAG Cosigned by: [email or web address] Admin: 09/22/21 12:49 Dose: 0.03 units/kg/hr, 3 mls/hr Documented by: ANURAG Cosigned by: [id number] Infusion: 09/22/21 12:49 Dose: 0.03 units/kg/hr, 3 mls/hr Documented by: ANURAG Cosigned by: [id number] Infusion: 09/22/21 09:15 Dose: 0.03 units/kg/hr, 3 mls/hr Documented by: ANURAG Cosigned by: [id number] Infusion: 09/22/21 07:09 Dose: 0.04 units/kg/hr, 4 mls/hr Documented by: EDWARD Cosigned by: ANNALISE Infusion: 09/22/21 06:13 Dose: 0.03 units/kg/hr, 3 mls/hr Documented by: EDWARD Cosigned by: ANNALISE Infusion: 09/22/21 05:08 Dose: 0.04 units/kg/hr, 4 mls/hr Documented by: EDWARD Cosigned by: ANNALISE Infusion: 09/22/21 04:15 Dose: 0.05 units/kg/hr, 5 mls/hr Documented by: EDWARD Cosigned by: ANNALISE Infusion: 09/22/21 03:06 Dose: 0.03 units/kg/hr, 3 mls/hr Documented by: EDWARD Cosigned by: ANNALISE Infusion: 09/21/21 23:09 Dose: 0.04 units/kg/hr, 4 mls/hr Documented by: EDWARD Cosigned by: ANNALISE Infusion: 09/21/21 19:24 Dose: 0.06 units/kg/hr, 6 mls/hr Documented by: EDWARD Cosigned by: ANNALISE Infusion: 09/21/21 17:00 Dose: 0.05 units/kg/hr, 5 mls/hr Documented by: HEIDY Cosigned by: ANURAG Infusion: 09/21/21 15:17 Dose: 0.04 units/kg/hr, 4 mls/hr Documented by: ANURAG Cosigned by: HEIDY Admin: 09/21/21 15:16 Dose: 0.1 units/kg/hr, 10.886 mls/hr Documented by: ANURAG Cosigned by: HEIDY Potassium Chloride 20 meq/ (Premix) 100 mls @ 50 mls/hr IV ONETIME PRN PRN Reason: SEE COMMENT Last Admin: 09/23/21 06:55 Dose: 50 mls/hr Documented by: Infusion: 09/22/21 04:08 Dose: 50 mls/hr Documented by: Admin: 09/22/21 02:08 Dose: 50 mls/hr Documented by: EDWARD Insulin Glargine (Insulin Glargine,Human Rec. Analog 100 Units/Ml 3 Ml Pen) 50 units SUBCUT BEDTIME JOSEF Last Admin: 09/22/21 21:10 Dose: 50 units Documented by: EDWARD Cosigned by: ANNALISE Ondansetron HCl (Ondansetron 4 Mg/2 Ml Sdv) 4 mg IV Q4H PRN PRN Reason: Nausea/Vomiting Oxycodone HCl (Oxycodone 5 Mg Tab) 5 mg PO Q4H PRN PRN Reason: Pain (moderate 4-6) Potassium Chloride (Potassium Chloride 10% 20 Meq/15 Ml Soln 15 Ml Ud Cup) 20 meq PO NOW PRN PRN Reason: Hypokalemia Last Admin: 09/23/21 05:14 Dose: 20 meq Documented by: Admin: 09/22/21 05:04 Dose: 20 meq Documented by: EDWARD Potassium Chloride (Potassium Chloride 10% 20 Meq/15 Ml Soln 15 Ml Ud Cup) 40 meq PO NOW PRN PRN Reason: Hypokalemia Last Admin: 09/22/21 21:10 Dose: 40 meq Documented by: EDWARD Potassium Chloride (Potassium Chloride 10% 20 Meq/15 Ml Soln 15 Ml Ud Cup) 40 meq PO Q2H PRN PRN Reason: Hypokalemia Labs: Laboratory Tests 09/21/21 09/21/21 09/21/21 Range/Units 06:36 06:50 06:50 WBC 11.6 H (4.5-11.0) K/uL RBC 6.20 H (4.30-5.90) M/uL Hgb 18.1 H* D (12.0-15.0) g/dL Hct 53.3 (40.0-54.0) % MCV 86 (80-98) fL MCH 29 (27-31) pg MCHC 34 (32-36) % Plt Count 291 (150-400) K/uL Add Manual Diff Yes Neutrophils % (Manual) 77 H (36-66) % Band Neutrophils % 1 L (5-11) % Lymphocytes % (Manual) 14 L (24-44) % Monocytes % (Manual) 5 (2-6) % Basophils % (Manual) 1 (0-1) % Blast Cells % 2 % D-Dimer, Quantitative 923.41 H (0.0-500.0) ng/mL VBG pH (7.350-7.450) Sodium (140-148) mmol/L Potassium (3.6-5.2) mmol/L Chloride (100-108) mmol/L Carbon Dioxide (21-32) mmol/L Anion Gap (5.0-14.0) mmol/L BUN (7-18) mg/dL Creatinine (0.8-1.3) mg/dL Est Cr Clr Drug Dosing mL/min Estimated GFR (MDRD) (>60) Glucose (74-106) mg/dL POC Glucose (74-106) mg/dL Lactic Acid 2.7 H (0.4-2.0) mmol/L Calcium (8.5-10.1) mg/dL Phosphorus (2.5-4.9) mg/dL Magnesium (1.8-2.4) mg/dL Ferritin (8-388) ng/ml Total Bilirubin (0.2-1.0) mg/dL AST (15-37) U/L ALT (12-78) U/L Alkaline Phosphatase (46-116) U/L Lactate Dehydrogenase (85-227) U/L Troponin I (0.000-0.056) ng/mL C-Reactive Protein (0.0-0.3) mg/dL Total Protein (6.4-8.2) g/dL Albumin (3.4-5.0) g/dL Globulin (2.3-3.5) g/dL Albumin/Globulin Ratio (1.2-2.2) Urine Color (YELLOW) Urine Appearance (CLEAR) Urine pH (5.0-8.0) Ur Specific [place] (1.008-1.030) Urine Protein (NEGATIVE) mg/dL Urine Glucose (UA) (NEGATIVE) mg/dL Urine Ketones (NEGATIVE) mg/dL Urine Occult Blood (NEGATIVE) Urine Nitrite (NEGATIVE) Urine Bilirubin (NEGATIVE) Urine Urobilinogen (0.2-1.0) EU/dL Ur Leukocyte Esterase (NEGATIVE) Ketones (NEGATIVE) 09/21/21 09/21/21 09/21/21 Range/Units 06:50 06:50 08:37 WBC (4.5-11.0) K/uL RBC (4.30-5.90) M/uL Hgb (12.0-15.0) g/dL Hct (40.0-54.0) % MCV (80-98) fL MCH (27-31) pg MCHC (32-36) % Plt Count (150-400) K/uL Add Manual Diff Neutrophils % (Manual) (36-66) % Band Neutrophils % (5-11) % Lymphocytes % (Manual) (24-44) % Monocytes % (Manual) (2-6) % Basophils % (Manual) (0-1) % Blast Cells % % D-Dimer, Quantitative (0.0-500.0) ng/mL VBG pH 6.920 L (7.350-7.450) Sodium 132 L (140-148) mmol/L Potassium 5.8 H (3.6-5.2) mmol/L Chloride 97 L (100-108) mmol/L Carbon Dioxide 6 L D (21-32) mmol/L Anion Gap 34.8 H (5.0-14.0) mmol/L BUN 21 H (7-18) mg/dL Creatinine 1.8 H D (0.8-1.3) mg/dL Est Cr Clr Drug Dosing 64.78 mL/min Estimated GFR (MDRD) 46 L (>60) Glucose 427 H* (74-106) mg/dL POC Glucose (74-106) mg/dL Lactic Acid (0.4-2.0) mmol/L Calcium 8.8 (8.5-10.1) mg/dL Phosphorus (2.5-4.9) mg/dL Magnesium (1.8-2.4) mg/dL Ferritin 3494 H (8-388) ng/ml Total Bilirubin 0.4 (0.2-1.0) mg/dL AST 24 (15-37) U/L ALT 30 (12-78) U/L Alkaline Phosphatase 143 H (46-116) U/L Lactate Dehydrogenase 305 H (85-227) U/L Troponin I (0.000-0.056) ng/mL C-Reactive Protein 4.73 H (0.0-0.3) mg/dL Total Protein 8.4 H (6.4-8.2) g/dL Albumin 3.8 (3.4-5.0) g/dL Globulin 4.6 H (2.3-3.5) g/dL Albumin/Globulin Ratio 0.8 L (1.2-2.2) Urine Color (YELLOW) Urine Appearance (CLEAR) Urine pH (5.0-8.0) Ur Specific [place] (1.008-1.030) Urine Protein (NEGATIVE) mg/dL Urine Glucose (UA) (NEGATIVE) mg/dL Urine Ketones (NEGATIVE) mg/dL Urine Occult Blood (NEGATIVE) Urine Nitrite (NEGATIVE) Urine Bilirubin (NEGATIVE) Urine Urobilinogen (0.2-1.0) EU/dL Ur Leukocyte Esterase (NEGATIVE) Ketones Large H (NEGATIVE) 09/21/21 09/21/21 09/21/21 Range/Units 09:17 09:25 10:18 WBC (4.5-11.0) K/uL RBC (4.30-5.90) M/uL Hgb (12.0-15.0) g/dL Hct (40.0-54.0) % MCV (80-98) fL MCH (27-31) pg MCHC (32-36) % Plt Count (150-400) K/uL Add Manual Diff Neutrophils % (Manual) (36-66) % Band Neutrophils % (5-11) % Lymphocytes % (Manual) (24-44) % Monocytes % (Manual) (2-6) % Basophils % (Manual) (0-1) % Blast Cells % % D-Dimer, Quantitative (0.0-500.0) ng/mL VBG pH (7.350-7.450) Sodium (140-148) mmol/L Potassium (3.6-5.2) mmol/L Chloride (100-108) mmol/L Carbon Dioxide (21-32) mmol/L Anion Gap (5.0-14.0) mmol/L BUN (7-18) mg/dL Creatinine (0.8-1.3) mg/dL Est Cr Clr Drug Dosing mL/min Estimated GFR (MDRD) (>60) Glucose (74-106) mg/dL POC Glucose (74-106) mg/dL Lactic Acid (0.4-2.0) mmol/L Calcium (8.5-10.1) mg/dL Phosphorus (2.5-4.9) mg/dL Magnesium 2.1 (1.8-2.4) mg/dL Ferritin (8-388) ng/ml Total Bilirubin (0.2-1.0) mg/dL AST (15-37) U/L ALT (12-78) U/L Alkaline Phosphatase (46-116) U/L Lactate Dehydrogenase (85-227) U/L Troponin I < 0.017 (0.000-0.056) ng/mL C-Reactive Protein (0.0-0.3) mg/dL Total Protein (6.4-8.2) g/dL Albumin (3.4-5.0) g/dL Globulin (2.3-3.5) g/dL Albumin/Globulin Ratio (1.2-2.2) Urine Color Yellow (YELLOW) Urine Appearance Clear (CLEAR) Urine pH 5.0 (5.0-8.0) Ur Specific [place] >= 1.030 (1.008-1.030) Urine Protein 100 H (NEGATIVE) mg/dL Urine Glucose (UA) 500 H (NEGATIVE) mg/dL Urine Ketones >=160 H (NEGATIVE) mg/dL Urine Occult Blood Moderate H (NEGATIVE) Urine Nitrite Negative (NEGATIVE) Urine Bilirubin Negative (NEGATIVE) Urine Urobilinogen 0.2 (0.2-1.0) EU/dL Ur Leukocyte Esterase Negative (NEGATIVE) Ketones (NEGATIVE) 09/21/21 09/21/21 09/21/21 Range/Units 12:30 12:32 14:17 WBC (4.5-11.0) K/uL RBC (4.30-5.90) M/uL Hgb (12.0-15.0) g/dL Hct (40.0-54.0) % MCV (80-98) fL MCH (27-31) pg MCHC (32-36) % Plt Count (150-400) K/uL Add Manual Diff Neutrophils % (Manual) (36-66) % Band Neutrophils % (5-11) % Lymphocytes % (Manual) (24-44) % Monocytes % (Manual) (2-6) % Basophils % (Manual) (0-1) % Blast Cells % % D-Dimer, Quantitative (0.0-500.0) ng/mL VBG pH (7.350-7.450) Sodium (140-148) mmol/L Potassium 5.5 H (3.6-5.2) mmol/L Chloride (100-108) mmol/L Carbon Dioxide (21-32) mmol/L Anion Gap (5.0-14.0) mmol/L BUN (7-18) mg/dL Creatinine (0.8-1.3) mg/dL Est Cr Clr Drug Dosing mL/min Estimated GFR (MDRD) (>60) Glucose (74-106) mg/dL POC Glucose 276 H 230 H (74-106) mg/dL Lactic Acid (0.4-2.0) mmol/L Calcium (8.5-10.1) mg/dL Phosphorus (2.5-4.9) mg/dL Magnesium (1.8-2.4) mg/dL Ferritin (8-388) ng/ml Total Bilirubin (0.2-1.0) mg/dL AST (15-37) U/L ALT (12-78) U/L Alkaline Phosphatase (46-116) U/L Lactate Dehydrogenase (85-227) U/L Troponin I (0.000-0.056) ng/mL C-Reactive Protein (0.0-0.3) mg/dL Total Protein (6.4-8.2) g/dL Albumin (3.4-5.0) g/dL Globulin (2.3-3.5) g/dL Albumin/Globulin Ratio (1.2-2.2) Urine Color (YELLOW) Urine Appearance (CLEAR) Urine pH (5.0-8.0) Ur Specific [place] (1.008-1.030) Urine Protein (NEGATIVE) mg/dL Urine Glucose (UA) (NEGATIVE) mg/dL Urine Ketones (NEGATIVE) mg/dL Urine Occult Blood (NEGATIVE) Urine Nitrite (NEGATIVE) Urine Bilirubin (NEGATIVE) Urine Urobilinogen (0.2-1.0) EU/dL Ur Leukocyte Esterase (NEGATIVE) Ketones (NEGATIVE) 09/21/21 Range/Units 14:30 WBC (4.5-11.0) K/uL RBC (4.30-5.90) M/uL Hgb (12.0-15.0) g/dL Hct (40.0-54.0) % MCV (80-98) fL MCH (27-31) pg MCHC (32-36) % Plt Count (150-400) K/uL Add Manual Diff Neutrophils % (Manual) (36-66) % Band Neutrophils % (5-11) % Lymphocytes % (Manual) (24-44) % Monocytes % (Manual) (2-6) % Basophils % (Manual) (0-1) % Blast Cells % % D-Dimer, Quantitative (0.0-500.0) ng/mL VBG pH (7.350-7.450) Sodium 133 L (140-148) mmol/L Potassium 5.5 H (3.6-5.2) mmol/L Chloride 104 (100-108) mmol/L Carbon Dioxide 8 L (21-32) mmol/L Anion Gap 26.5 H (5.0-14.0) mmol/L BUN 19 H (7-18) mg/dL Creatinine 1.4 H (0.8-1.3) mg/dL Est Cr Clr Drug Dosing 83.28 mL/min Estimated GFR (MDRD) > 60 (>60) Glucose 204 H (74-106) mg/dL POC Glucose (74-106) mg/dL Lactic Acid (0.4-2.0) mmol/L Calcium 7.3 L D (8.5-10.1) mg/dL Phosphorus 2.3 L (2.5-4.9) mg/dL Magnesium 2.0 (1.8-2.4) mg/dL Ferritin (8-388) ng/ml Total Bilirubin (0.2-1.0) mg/dL AST (15-37) U/L ALT (12-78) U/L Alkaline Phosphatase (46-116) U/L Lactate Dehydrogenase (85-227) U/L Troponin I (0.000-0.056) ng/mL C-Reactive Protein (0.0-0.3) mg/dL Total Protein (6.4-8.2) g/dL Albumin (3.4-5.0) g/dL Globulin (2.3-3.5) g/dL Albumin/Globulin Ratio (1.2-2.2) Urine Color (YELLOW) Urine Appearance (CLEAR) Urine pH (5.0-8.0) Ur Specific [place] (1.008-1.030) Urine Protein (NEGATIVE) mg/dL Urine Glucose (UA) (NEGATIVE) mg/dL Urine Ketones (NEGATIVE) mg/dL Urine Occult Blood (NEGATIVE) Urine Nitrite (NEGATIVE) Urine Bilirubin (NEGATIVE) Urine Urobilinogen (0.2-1.0) EU/dL Ur Leukocyte Esterase (NEGATIVE) Ketones (NEGATIVE) Meds: Medications Generic Name Dose Route Start Last Admin Trade Name Freq PRN Reason Stop Dose Admin Acetaminophen 650 mg 09/21/21 14:36 Acetaminophen 325 Mg Tab PO Q4H PRN Pain (Mild 1-3)/fever Dextrose/Water 50 ml 09/21/21 14:18 50% Dextrose In Water 50 Ml Syringe IVPUSH ONETIME PRN Blood Glucose Enoxaparin Sodium 40 mg 09/21/21 16:00 09/22/21 16:36 Enoxaparin 40 Mg/0.4 Ml Syringe SUBCUT 40 mg Q24H JOSEF Administration Sodium Chloride 2,000 mls @ 500 mls/hr 09/21/21 14:18 Normal Saline IV .CONTINUOUS PRN Blood Glucose Dextrose/Sodium Chloride 1,000 mls @ 150 mls/hr 09/21/21 14:18 09/23/21 06:58 Dextrose 5%-1/2 Ns IV 150 mls/hr ASDIRECTED PRN Administration Blood Glucose Potassium Chloride 20 meq/ 100 mls @ 50 mls/hr 09/21/21 14:18 Premix IV Q2H PRN Hypokalemia Magnesium Sulfate 50 mls @ 25 mls/hr 09/21/21 14:18 09/21/21 21:25 Magnesium Sulfate In Water 2 Gm/50 Ml IV 25 mls/hr ONETIME PRN Administration low magnesium Sodium Phosphate 60 mmole/ 270 mls @ 62.5 mls/hr 09/21/21 14:18 Sodium Chloride IV ONETIME PRN Low phophorus Insulin Regular in 0.9 % NACL 100 mls @ 10.886 mls/hr 09/21/21 14:30 09/23/21 06:56 Myxredlin In Ns 100 Unit/100 Ml IV 0.02 units/kg/hr ASDIRECTED JOSEF 2 mls/hr Infusion Protocol 0.1 UNITS/KG/HR Potassium Chloride 20 meq/ 100 mls @ 50 mls/hr 09/21/21 14:28 09/23/21 06:55 Premix IV 50 mls/hr ONETIME PRN Administration SEE COMMENT Insulin Glargine 50 units 09/22/21 21:00 09/22/21 21:10 Insulin Glargine,Human Rec. Analog 100 Units/Ml 3 Ml Pen SUBCUT 50 units BEDTIME JOSEF Administration Ondansetron HCl 4 mg 09/21/21 14:36 Ondansetron 4 Mg/2 Ml Sdv IV Q4H PRN Nausea/Vomiting Oxycodone HCl 5 mg 09/21/21 14:36 Oxycodone 5 Mg Tab PO Q4H PRN Pain (moderate 4-6) Potassium Chloride 20 meq 09/21/21 14:18 09/23/21 05:14 Potassium Chloride 10% 20 Meq/15 Ml Soln 15 Ml Ud Cup PO 20 meq NOW PRN Administration Hypokalemia Potassium Chloride 40 meq 09/21/21 14:18 09/22/21 21:10 Potassium Chloride 10% 20 Meq/15 Ml Soln 15 Ml Ud Cup PO 40 meq NOW PRN Administration Hypokalemia Potassium Chloride 40 meq 09/21/21 14:18 Potassium Chloride 10% 20 Meq/15 Ml Soln 15 Ml Ud Cup PO Q2H PRN Hypokalemia Discontinued Medications Generic Name Dose Route Start Last Admin Trade Name Freq PRN Reason Stop Dose Admin Diphenhydramine HCl 50 mg 09/21/21 15:47 Diphenhydramine 50 Mg/Ml Sdv IVPUSH 09/21/21 18:00 ASDIRECTED PRN hypersensitivity reaction Epinephrine HCl 0.3 mg 09/21/21 15:47 Epinephrine 1 Mg/Ml Sdv IM 09/21/21 18:00 ASDIRECTED PRN hypersensitivity reaction Famotidine 20 mg 09/21/21 15:47 Famotidine 20 Mg/2 Ml Sdv IVPUSH 09/21/21 18:00 ASDIRECTED PRN hypersensitivity reaction Hydromorphone HCl 0.25 mg 09/21/21 09:22 09/21/21 09:31 Hydromorphone 0.5 Mg/0.5 Ml Syringe IVPUSH 09/21/21 09:23 0.25 mg ONETIME ONE Administration Sodium Chloride 1,000 mls @ 500 mls/hr 09/21/21 06:45 09/21/21 08:07 Normal Saline IV 500 mls/hr ASDIRECTED JOSEF Administration Insulin Regular in 0.9 % NACL 100 unit in 100 mls @ 10.886 mls/hr 09/21/21 08:30 09/21/21 09:05 Myxredlin In Ns 100 Unit/100 Ml IV 0.1 units/kg/hr ASDIRECTED JOSEF 10.886 mls/hr Administration 0.1 UNITS/KG/HR Sodium Chloride 100 mls @ 3 mls/sec 09/21/21 10:15 09/21/21 10:48 Normal Saline IV 09/21/21 15:00 3 mls/sec ASDIRECTED JOSEF Administration Potassium Chloride/Sodium Chloride 1,000 mls @ 500 mls/hr 09/21/21 10:30 09/21/21 10:35 Normal Saline With 20 Meq Kcl IV 500 mls/hr ASDIRECTED JOSEF Administration Sodium Chloride 1,000 mls @ 500 mls/hr 09/21/21 13:15 09/21/21 13:10 Normal Saline IV 500 mls/hr ASDIRECTED JOSEF Administration Potassium Chloride 20 meq/ 100 mls @ 50 mls/hr 09/21/21 14:18 09/23/21 00:36 Premix IV 50 mls/hr Q2H PRN Administration Hypokalemia Bamlanivimab 700 mg/ 160 mls @ 310 mls/hr 09/21/21 17:00 09/21/21 16:52 Etesevimab 1,400 mg/ Sodium IV 09/21/21 17:30 310 mls/hr Chloride ONETIME ONE Administration Lidocaine HCl Confirm 09/22/21 01:53 09/22/21 02:09 Xylocaine-Mpf 1% Administered 09/22/21 01:54 Not Given Dose 2 mls @ as directed .ROUTE .STK-MED ONE Potassium Phosphate 15 mmol/ 250 mls @ 84 mls/hr 09/22/21 10:30 09/22/21 10:17 Premix IV 09/22/21 13:28 84 mls/hr ONETIME ONE Administration Sodium Phosphate 45 mmole/ 265 mls @ 65 mls/hr 09/22/21 13:30 09/22/21 12:48 Sodium Chloride IV 09/22/21 17:34 65 mls/hr ONETIME ONE Administration Iopamidol 100 ml 09/21/21 10:15 09/21/21 10:48 Iopamidol 755 Mg/Ml 100 Ml Bottle IV 09/21/21 15:00 100 ml . DIRECTED JOSEF Administration Ketorolac Tromethamine 30 mg 09/21/21 09:22 09/21/21 09:30 Ketorolac 30 Mg/Ml Sdv IVPUSH 09/21/21 09:23 30 mg ONETIME ONE Administration Lidocaine HCl 2 ml 09/22/21 01:53 09/22/21 02:09 Lidocaine 1% 5 Ml Sdv INJECT 09/22/21 01:54 2 ml ONETIME ONE Administration Lidocaine HCl 2 ml 09/22/21 20:57 09/22/21 21:10 Lidocaine 1% 5 Ml Sdv INJECT 09/22/21 20:58 2 ml ONETIME ONE Administration Lidocaine HCl Confirm 09/22/21 20:59 09/22/21 22:11 Lidocaine 1% 5 Ml Sdv Administered 09/22/21 21:00 Not Given Dose 5 ml .ROUTE .STK-MED ONE Lidocaine HCl 2 ml 09/23/21 06:46 09/23/21 06:56 Lidocaine 1% 5 Ml Sdv INJECT 09/23/21 06:47 2 ml ONETIME ONE Administration Lidocaine HCl Confirm 09/23/21 06:47 09/23/21 06:56 Lidocaine 1% 5 Ml Sdv Administered 09/23/21 06:48 Not Given Dose 5 ml .ROUTE .STK-MED ONE Methylprednisolone Sodium Succinate 125 mg 09/21/21 15:47 Methylprednisolone Sodium Succinate 125 Mg/2 Ml Sdv IVPUSH 09/21/21 18:00 ASDIRECTED PRN hypersensitivity reaction Metoclopramide HCl 5 mg 09/21/21 08:26 09/21/21 09:06 Metoclopramide 10 Mg/2 Ml Sdv IVPUSH 09/21/21 08:27 5 mg ONETIME ONE Administration Ondansetron HCl 4 mg 09/21/21 06:36 09/21/21 08:07 Ondansetron 4 Mg/2 Ml Sdv IVPUSH 09/21/21 06:37 4 mg ONETIME ONE Administration Potassium Chloride 20 meq 09/22/21 14:30 09/22/21 14:54 Potassium Chloride 20 Meq Tab.Er PO 09/22/21 14:31 20 meq ONETIME ONE Administration Potassium Chloride 40 meq 09/22/21 17:48 09/22/21 18:06 Potassium Chloride 20 Meq Tab.Er PO 09/22/21 17:49 40 meq ONETIME ONE Administration Potassium Chloride Confirm 09/23/21 05:11 09/23/21 06:09 Potassium Chloride 10% 20 Meq/15 Ml Soln 15 Ml Ud Cup Administered 09/23/21 05:12 Not Given Dose 20 meq .ROUTE .STK-MED ONE Sodium Chloride 10 ml 09/21/21 06:36 09/21/21 10:48 Sodium Chloride 0.9% 10 Ml Syringe FLUSH 10 ml ASDIRECTED PRN Administration Keep Vein Open Sodium Chloride 10 ml 09/21/21 10:15 09/21/21 10:19 Sodium Chloride 0.9% 10 Ml Sdv FLUSH 09/21/21 10:16 10 ml ONETIME ONE Administration Sodium Chloride 30 ml 09/21/21 17:30 09/21/21 18:07 Sodium Chloride 0.9% 10 Ml Syringe FLUSH 09/21/21 17:31 30 ml ONETIME ONE Administration - Radiology Interpretation Free Text/Narrative:: CXR-neg Angio Chest- IMPRESSION: 1. There is no finding of pulmonary embolus. 2. Relatively mild patchy multifocal bilateral ground-glass opacification consistent with COVID related lung disease. This is not visible on the contemporaneously chest radiograph. 3. Normal pleural spaces. Please note that all CT scans at this facility use dose modulation, iterative reconstruction, and/or weight-based dosing when appropriate to reduce radiation dose to as low as reasonably achievable. Dictated by Christopher Lopez MD @ 09/21/2021 11:35:39 AM (Electronic Signature) - Re-Assessments/Exams Free Text/Narrative Re-Assessment/Exam: 09/21/21 09:26 reported R sided pleuritic chest pain during his ER stay. An EKG/trop were ordered. Toradol and Dilaudid given for pain relief. Departure - Departure Time of Disposition: 13:00 Disposition: Admitted As Inpatient 66 Condition: Serious Clinical Impression: Elevated blood sugar level, COVID-19 DKA (diabetic ketoacidosis) Qualifiers: Diabetes mellitus type: type 1 Diabetes mellitus complication detail: without coma Qualified Code(s): E10.10 - Type 1 diabetes mellitus with ketoacidosis without coma - Discharge Information *PRESCRIPTION DRUG MONITORING PROGRAM REVIEWED*: Not Applicable *COPY OF PRESCRIPTION DRUG MONITORING REPORT IN PATIENT HERBERT: Not Applicable Sepsis Event Note (ED) - Evaluation Sepsis Screening Result: Possible Sepsis Risk
[2021-09-21] MEDS: Sodium Chloride 0.9% 10 ML Syringe FLUSH PRN ×2 (08:08→10:48)
[2021-09-21] MEDS ORDERED: Metoclopramide 10 MG/2 ML SDV IVPUSH ONE (08:26)
[2021-09-21] MEDS ORDERED: Ketorolac 30 MG/ML SDV IVPUSH ONE (09:22)
[2021-09-21] MEDS ORDERED: HYDROmorphone 0.5 MG/0.5 ML Syringe IVPUSH ONE (09:22)
[2021-09-21] MEDS ORDERED: Sodium Chloride 0.9% 100 ML IV SCH (10:15)
[2021-09-21] MEDS ORDERED: Iopamidol 755 Mg/ML 100 ML Bottle IV SCH (10:15)
[2021-09-21] MEDS ORDERED: Sodium Chloride 0.9% 10 ML SDV FLUSH ONE (10:15)
--- NOTE | 2021-09-21 10:28 | CRLCR ---
For Patients: As a result of the Century Cures Act, medical imaging exams and procedure reports are released immediately into your electronic medical record. You may view this report before your referring provider. If you have questions, please contact your health care provider. INDICATION: COVID with worsening dyspnea COMPARISON: None TECHNIQUE: Single view chest radiograph is an AP semi upright portable study FINDINGS: TUBES AND LINES: None. HEART AND MEDIASTINUM: The heart size is normal. The mediastinal contour appears normal for patient age. LUNGS AND PLEURAL SPACES: The lungs appear normal.The pleural spaces are unremarkable. OSSEOUS STRUCTURES: Age-appropriate appearance. No acute focal finding. IMPRESSION: Normal single-view portable chest radiograph. Dictated by Christopher Lopez MD @ 09/21/2021 10:26:10 AM (Electronically Signed)
[2021-09-21] MEDS ORDERED: NS + KCl 20mEq/L 1,000 ML IV SCH (10:30)
--- NOTE | 2021-09-21 11:37 | CRLCT ---
For Patients: As a result of the Century Cures Act, medical imaging exams and procedure reports are released immediately into your electronic medical record. You may view this report before your referring provider. If you have questions, please contact your health care provider. INDICATION: Covered with sharp chest pain and elevated D-dimer COMPARISON: No prior transaxial studies. I have reviewed the chest radiograph from earlier the same day. TECHNIQUE: : CT examination of the chest was performed with the uneventful intravenous administration of 100 cc of Isovue 370 while thin axial sections were obtained from above the apices of the lungs to the lung bases. Please note that all CT scans at this facility use dose modulation, iterative reconstruction, and/or weight-based dosing when appropriate to reduce radiation dose to as low as reasonably achievable. FINDINGS: : HEART and MEDIASTINUM: The heart size is normal. There is no mediastinal or hilar adenopathy or mass. There is no pericardial effusion. PULMONARY ARTERIAL CIRCULATION: There is no visible intraluminal filling defect to suggest pulmonary embolus. LUNGS: Relatively mild patchy multifocal ground-glass opacification. This is roughly symmetric and most affects the lower lobes. This is consistent with COVID related lung disease and is not visible on the contemporaneously chest radiograph. PLEURAL SPACES: There is no pleural effusion, pneumothorax or pleural based mass. VISUALIZED UPPER ABDOMEN: The limited visualized upper abdominal structures appear normal. OSSEOUS STRUCTURES: Age-appropriate appearance. No acute fracture or destructive process. TUBES and LINES: None. IMPRESSION: 1. There is no finding of pulmonary embolus. 2. Relatively mild patchy multifocal bilateral ground-glass opacification consistent with COVID related lung disease. This is not visible on the contemporaneously chest radiograph. 3. Normal pleural spaces. Please note that all CT scans at this facility use dose modulation, iterative reconstruction, and/or weight-based dosing when appropriate to reduce radiation dose to as low as reasonably achievable. Dictated by Christopher Lopez MD @ 09/21/2021 11:35:39 AM (Electronically Signed)
[2021-09-21] MEDS ORDERED: Potassium Chloride 20 MEQ in Premix Bag 1 BAG IV ONE (14:18)
[2021-09-21] MEDS ORDERED: Sodium Phosphate 60 MMOLE in Sodium Chloride 0.9% 250 ML IV PRN (14:18)
[2021-09-21] MEDS ORDERED: 50% Dextrose in Water 50 ML Syringe IVPUSH PRN (14:18)
[2021-09-21] MEDS ORDERED: Potassium Chloride 20 MEQ in Premix Bag 1 BAG IV PRN (14:18)
[2021-09-21] MEDS ORDERED: Magnesium Sulfate/Water 50 ML IV PRN (14:18)
[2021-09-21] MEDS ORDERED: Potassium Chloride 10% 20 MEQ/15 ML Soln 15 ML UD Cup PO PRN ×2 (14:18)
[2021-09-21] MEDS ORDERED: Sodium Chloride 0.9% 2,000 ML IV PRN (14:18)
--- NOTE | 2021-09-21 14:30 | PCM.HP.2 ---
H&P History of Present Illness - General Date of Service: 09/21/21 Admit Problem/Dx: Admission Diagnosis/Problem Admission Diagnosis/Problem Ketoacidosis Source of Information: Patient, Provider, RN Notes Reviewed History Limitations: Reports: No Limitations - History of Present Illness Initial Comments - Free Text/Narative: Mr. Harp is a 25-year-old gentleman who was admitted through the emergency department with generalized weakness and nausea secondary to diabetic ke toacidosis and underlying COVID-19 infection. He has had longstanding type 1 diabetes mellitus which he manages with insulin. 8 days ago developed symptoms of nasal congestion and sore throat. Symptoms progressed and he was tested for Covid and found to be positive. Over the last few days he has become progressively more weak and had ongoing difficulty with nausea. He presented to the emergency department this morning and was found to be in diabetic ketoacidosis with marked elevation in glucose level. No beds were available here or for transfer and he was started on IV fluids as well as IV insulin infusion in the emergency department. Glucose level has improved significantly and ketoacidosis has improved modestly with current management. Chest Pain Score (Numeric/FACES): 4 - Related Data Allergies/Adverse Reactions: Allergies Allergy/AdvReac Type Severity Reaction Status Date / Time No Known Allergies Allergy Verified 09/21/21 06:57 Home Medications: Home Meds Insulin Aspart [NovoLOG] 1 unit SUBCUT ACBED #3 pen 05/14/14 [Rx] Insulin Detemir [Levemir] 50 unit SUBCUT QPM 06/25/18 [History] Past Medical History - Past Health History Medical/Surgical History: Denies Medical/Surgical History HEENT History: Reports: Impaired Vision Endocrine/Metabolic History: Reports: Diabetes, Type I - Infectious Disease History Infectious Disease History: Reports: Chicken Pox, Novel Coronavirus Social & Family History - Tobacco Use Tobacco Use Status *Q: Never Tobacco User - Caffeine Use Caffeine Use: Reports: Coffee Caffeine Use Comment: occasional - Recreational Drug Use Recreational Drug Use: No H&P Review of Systems - Review of Systems: Review Of Systems: See Below General: Reports: Malaise, Weakness, Fatigue HEENT: Reports: No Symptoms Pulmonary: Reports: Cough. Denies: Shortness of Breath, Wheezing, Sputum, Hemoptysis Cardiovascular: Reports: No Symptoms Gastrointestinal: Reports: Decreased Appetite, Nausea. Denies: Abdominal Pain, Diarrhea, Difficulty Swallowing, Distension, Hematemesis, Hematochezia, Melena, Vomiting Genitourinary: Reports: No Symptoms Musculoskeletal: Reports: No Symptoms Skin: Reports: No Symptoms Psychiatric: Reports: No Symptoms Neurological: Reports: No Symptoms Hematologic/Lymphatic: Reports: No Symptoms Immunologic: Reports: No Symptoms Exam - Exam Exam: See Below - Vital Signs Vital Signs: Last Vital Signs Temp 98.4 F 09/21/21 06:58 Pulse 90 09/21/21 14:21 Resp 32 H 09/21/21 10:30 BP 141/76 H 09/21/21 14:21 Pulse Ox 99 09/21/21 13:15 Weight: 240 lb - Exam Quality Assessment: DVT Prophylaxis General: Alert, Oriented, Cooperative, Mild Distress HEENT: Conjunctiva Clear, Hearing Intact, Normal Nasal Septum, Posterior Pharynx Clear, Pupils Equal. No: Mucosa Moist & [place] Neck: Supple, Trachea Midline, +2 Carotid Pulse wo Bruit Lungs: Clear to Auscultation, Normal Respiratory Effort Cardiovascular: Regular Rate, Regular Rhythm, Normal S1, Normal S2. No: Systolic Murmur, Diastolic Murmur GI/Abdominal Exam: Soft, Non-Tender, No Organomegaly, No Distention Back Exam: Normal Inspection, Full Range of Motion Extremities: Non-Tender, No Pedal Edema Skin: Warm, Dry, Intact Neurological: Cranial Nerves Intact, Strength Equal Bilateral, Normal Speech, Normal Tone, Sensation Intact. No: Focal Deficit Neuro Extensive - Mental Status: Alert, Oriented x3, Normal Mood/Affect, Normal Cognition, Memory Intact - Patient Data Lab Results Last 24 hrs: Laboratory Results - last 24 hr 09/21/21 09/21/21 09/21/21 Range/Units 06:36 06:50 06:50 WBC 11.6 H (4.5-11.0) K/uL RBC 6.20 H (4.30-5.90) M/uL Hgb 18.1 H* D (12.0-15.0) g/dL Hct 53.3 (40.0-54.0) % MCV 86 (80-98) fL MCH 29 (27-31) pg MCHC 34 (32-36) % Plt Count 291 (150-400) K/uL Add Manual Diff Yes Neutrophils % (Manual) 77 H (36-66) % Band Neutrophils % 1 L (5-11) % Lymphocytes % (Manual) 14 L (24-44) % Monocytes % (Manual) 5 (2-6) % Basophils % (Manual) 1 (0-1) % Blast Cells % 2 % D-Dimer, Quantitative 923.41 H (0.0-500.0) ng/mL VBG pH (7.350-7.450) Sodium (140-148) mmol/L Potassium (3.6-5.2) mmol/L Chloride (100-108) mmol/L Carbon Dioxide (21-32) mmol/L Anion Gap (5.0-14.0) mmol/L BUN (7-18) mg/dL Creatinine (0.8-1.3) mg/dL Est Cr Clr Drug Dosing mL/min Estimated GFR (MDRD) (>60) Glucose (74-106) mg/dL POC Glucose (74-106) mg/dL Lactic Acid 2.7 H (0.4-2.0) mmol/L Calcium (8.5-10.1) mg/dL Magnesium (1.8-2.4) mg/dL Ferritin (8-388) ng/ml Total Bilirubin (0.2-1.0) mg/dL AST (15-37) U/L ALT (12-78) U/L Alkaline Phosphatase (46-116) U/L Lactate Dehydrogenase (85-227) U/L Troponin I (0.000-0.056) ng/mL C-Reactive Protein (0.0-0.3) mg/dL Total Protein (6.4-8.2) g/dL Albumin (3.4-5.0) g/dL Globulin (2.3-3.5) g/dL Albumin/Globulin Ratio (1.2-2.2) Urine Color (YELLOW) Urine Appearance (CLEAR) Urine pH (5.0-8.0) Ur Specific [place] (1.008-1.030) Urine Protein (NEGATIVE) mg/dL Urine Glucose (UA) (NEGATIVE) mg/dL Urine Ketones (NEGATIVE) mg/dL Urine Occult Blood (NEGATIVE) Urine Nitrite (NEGATIVE) Urine Bilirubin (NEGATIVE) Urine Urobilinogen (0.2-1.0) EU/dL Ur Leukocyte Esterase (NEGATIVE) Ketones (NEGATIVE) 09/21/21 09/21/21 09/21/21 Range/Units 06:50 06:50 08:37 WBC (4.5-11.0) K/uL RBC (4.30-5.90) M/uL Hgb (12.0-15.0) g/dL Hct (40.0-54.0) % MCV (80-98) fL MCH (27-31) pg MCHC (32-36) % Plt Count (150-400) K/uL Add Manual Diff Neutrophils % (Manual) (36-66) % Band Neutrophils % (5-11) % Lymphocytes % (Manual) (24-44) % Monocytes % (Manual) (2-6) % Basophils % (Manual) (0-1) % Blast Cells % % D-Dimer, Quantitative (0.0-500.0) ng/mL VBG pH 6.920 L (7.350-7.450) Sodium 132 L (140-148) mmol/L Potassium 5.8 H (3.6-5.2) mmol/L Chloride 97 L (100-108) mmol/L Carbon Dioxide 6 L D (21-32) mmol/L Anion Gap 34.8 H (5.0-14.0) mmol/L BUN 21 H (7-18) mg/dL Creatinine 1.8 H D (0.8-1.3) mg/dL Est Cr Clr Drug Dosing 64.78 mL/min Estimated GFR (MDRD) 46 L (>60) Glucose 427 H* (74-106) mg/dL POC Glucose (74-106) mg/dL Lactic Acid (0.4-2.0) mmol/L Calcium 8.8 (8.5-10.1) mg/dL Magnesium (1.8-2.4) mg/dL Ferritin 3494 H (8-388) ng/ml Total Bilirubin 0.4 (0.2-1.0) mg/dL AST 24 (15-37) U/L ALT 30 (12-78) U/L Alkaline Phosphatase 143 H (46-116) U/L Lactate Dehydrogenase 305 H (85-227) U/L Troponin I (0.000-0.056) ng/mL C-Reactive Protein 4.73 H (0.0-0.3) mg/dL Total Protein 8.4 H (6.4-8.2) g/dL Albumin 3.8 (3.4-5.0) g/dL Globulin 4.6 H (2.3-3.5) g/dL Albumin/Globulin Ratio 0.8 L (1.2-2.2) Urine Color (YELLOW) Urine Appearance (CLEAR) Urine pH (5.0-8.0) Ur Specific [place] (1.008-1.030) Urine Protein (NEGATIVE) mg/dL Urine Glucose (UA) (NEGATIVE) mg/dL Urine Ketones (NEGATIVE) mg/dL Urine Occult Blood (NEGATIVE) Urine Nitrite (NEGATIVE) Urine Bilirubin (NEGATIVE) Urine Urobilinogen (0.2-1.0) EU/dL Ur Leukocyte Esterase (NEGATIVE) Ketones Large H (NEGATIVE) 09/21/21 09/21/21 09/21/21 Range/Units 09:17 09:25 10:18 WBC (4.5-11.0) K/uL RBC (4.30-5.90) M/uL Hgb (12.0-15.0) g/dL Hct (40.0-54.0) % MCV (80-98) fL MCH (27-31) pg MCHC (32-36) % Plt Count (150-400) K/uL Add Manual Diff Neutrophils % (Manual) (36-66) % Band Neutrophils % (5-11) % Lymphocytes % (Manual) (24-44) % Monocytes % (Manual) (2-6) % Basophils % (Manual) (0-1) % Blast Cells % % D-Dimer, Quantitative (0.0-500.0) ng/mL VBG pH (7.350-7.450) Sodium (140-148) mmol/L Potassium (3.6-5.2) mmol/L Chloride (100-108) mmol/L Carbon Dioxide (21-32) mmol/L Anion Gap (5.0-14.0) mmol/L BUN (7-18) mg/dL Creatinine (0.8-1.3) mg/dL Est Cr Clr Drug Dosing mL/min Estimated GFR (MDRD) (>60) Glucose (74-106) mg/dL POC Glucose (74-106) mg/dL Lactic Acid (0.4-2.0) mmol/L Calcium (8.5-10.1) mg/dL Magnesium 2.1 (1.8-2.4) mg/dL Ferritin (8-388) ng/ml Total Bilirubin (0.2-1.0) mg/dL AST (15-37) U/L ALT (12-78) U/L Alkaline Phosphatase (46-116) U/L Lactate Dehydrogenase (85-227) U/L Troponin I < 0.017 (0.000-0.056) ng/mL C-Reactive Protein (0.0-0.3) mg/dL Total Protein (6.4-8.2) g/dL Albumin (3.4-5.0) g/dL Globulin (2.3-3.5) g/dL Albumin/Globulin Ratio (1.2-2.2) Urine Color Yellow (YELLOW) Urine Appearance Clear (CLEAR) Urine pH 5.0 (5.0-8.0) Ur Specific [place] >= 1.030 (1.008-1.030) Urine Protein 100 H (NEGATIVE) mg/dL Urine Glucose (UA) 500 H (NEGATIVE) mg/dL Urine Ketones >=160 H (NEGATIVE) mg/dL Urine Occult Blood Moderate H (NEGATIVE) Urine Nitrite Negative (NEGATIVE) Urine Bilirubin Negative (NEGATIVE) Urine Urobilinogen 0.2 (0.2-1.0) EU/dL Ur Leukocyte Esterase Negative (NEGATIVE) Ketones (NEGATIVE) 09/21/21 09/21/21 09/21/21 Range/Units 12:30 12:32 14:17 WBC (4.5-11.0) K/uL RBC (4.30-5.90) M/uL Hgb (12.0-15.0) g/dL Hct (40.0-54.0) % MCV (80-98) fL MCH (27-31) pg MCHC (32-36) % Plt Count (150-400) K/uL Add Manual Diff Neutrophils % (Manual) (36-66) % Band Neutrophils % (5-11) % Lymphocytes % (Manual) (24-44) % Monocytes % (Manual) (2-6) % Basophils % (Manual) (0-1) % Blast Cells % % D-Dimer, Quantitative (0.0-500.0) ng/mL VBG pH (7.350-7.450) Sodium (140-148) mmol/L Potassium 5.5 H (3.6-5.2) mmol/L Chloride (100-108) mmol/L Carbon Dioxide (21-32) mmol/L Anion Gap (5.0-14.0) mmol/L BUN (7-18) mg/dL Creatinine (0.8-1.3) mg/dL Est Cr Clr Drug Dosing mL/min Estimated GFR (MDRD) (>60) Glucose (74-106) mg/dL POC Glucose 276 H 230 H (74-106) mg/dL Lactic Acid (0.4-2.0) mmol/L Calcium (8.5-10.1) mg/dL Magnesium (1.8-2.4) mg/dL Ferritin (8-388) ng/ml Total Bilirubin (0.2-1.0) mg/dL AST (15-37) U/L ALT (12-78) U/L Alkaline Phosphatase (46-116) U/L Lactate Dehydrogenase (85-227) U/L Troponin I (0.000-0.056) ng/mL C-Reactive Protein (0.0-0.3) mg/dL Total Protein (6.4-8.2) g/dL Albumin (3.4-5.0) g/dL Globulin (2.3-3.5) g/dL Albumin/Globulin Ratio (1.2-2.2) Urine Color (YELLOW) Urine Appearance (CLEAR) Urine pH (5.0-8.0) Ur Specific [place] (1.008-1.030) Urine Protein (NEGATIVE) mg/dL Urine Glucose (UA) (NEGATIVE) mg/dL Urine Ketones (NEGATIVE) mg/dL Urine Occult Blood (NEGATIVE) Urine Nitrite (NEGATIVE) Urine Bilirubin (NEGATIVE) Urine Urobilinogen (0.2-1.0) EU/dL Ur Leukocyte Esterase (NEGATIVE) Ketones (NEGATIVE) Result Diagrams: 09/21/21 06:50 09/21/21 14:30 Sepsis Event Note - Evaluation Sepsis Screening Result: Possible Sepsis Risk - Focused Exam Vital Signs: Vital Signs Temp Pulse Resp BP Pulse Ox 09/21/21 14:21 90 141/76 H 09/21/21 13:15 99 142/72 H 99 09/21/21 11:51 89 116/90 100 09/21/21 10:30 100 32 H 143/63 H 100 09/21/21 09:30 107 H 36 H 139/71 94 L 09/21/21 08:30 92 28 H 123/90 98 09/21/21 07:30 97 32 H 130/80 98 09/21/21 06:58 98.4 F 105 H 32 H 147/88 H 98 *Q Meaningful Use (ADM) - VTE Risk Assess *Q Each Risk Factor Represents 1 Point: Obesity ( BMI > 25 kg/m2), Other Risk Factor (COVID-19) Total Score 1 Point Risk Factors: 2 Each Risk Factor Represents 2 Points: None Total Score 2 Point Risk Factors: 0 Each Risk Factor Represents 3 Points: None Total Score 3 Point Risk Factors: 0 Each Risk Factor Represents 5 Points: None Total Score 5 Point Risk Factors: 0 Venous Thromboembolism Risk Factor Score *Q: 2 Problem List Initiated/Reviewed/Updated: Yes Orders Last 24hrs: Active Orders 24 hr Category Date Time Status Patient Status Manage Transfer [TRANSFER] Routine ADT 09/21/21 14:23 Ordered Blood Glucose Check, Bedside [RC] Q1H Care 09/21/21 14:18 Active Diabetes Education [RC] Click to Edit Care 09/21/21 14:18 Active Notify Provider Laboratory Res [RC] ASDIRECTED Care 09/21/21 14:19 Active Notify Provider Laboratory Res [RC] ASDIRECTED Care 09/21/21 14:19 Active Notify Provider Laboratory Res [RC] ASDIRECTED Care 09/21/21 14:20 Active Notify Provider [RC] PRN Care 09/21/21 14:18 Active Vital Signs [RC] Q1H Care 09/21/21 14:18 Active Consult to Diabetic Nurse Specialist [CONS] Stat Cons 09/21/21 14:18 Active BASIC METABOLIC PANEL,BMP [CHEM] Q4H Lab 09/21/21 14:30 Ordered BASIC METABOLIC PANEL,BMP [CHEM] Q4H Lab 09/21/21 18:30 Ordered BASIC METABOLIC PANEL,BMP [CHEM] Q4H Lab 09/21/21 22:30 Ordered BASIC METABOLIC PANEL,BMP [CHEM] Q4H Lab 09/22/21 02:30 Ordered BASIC METABOLIC PANEL,BMP [CHEM] Q4H Lab 09/22/21 06:30 Ordered BASIC METABOLIC PANEL,BMP [CHEM] Q4H Lab 09/22/21 10:30 Ordered GLYCOSYLATED HEMOGLOBIN,HGBA1C [CHEM] Lab 09/22/21 05:11 Ordered MAGNESIUM [CHEM] [facility] Lab 09/21/21 14:30 Ordered MAGNESIUM [CHEM] [facility] Lab 09/21/21 20:30 Ordered MAGNESIUM [CHEM] [facility] Lab 09/22/21 02:30 Ordered MAGNESIUM [CHEM] [facility] Lab 09/22/21 08:30 Ordered PHOSPHORUS [CHEM] [facility] Lab 09/21/21 14:30 Ordered PHOSPHORUS [CHEM] [facility] Lab 09/21/21 20:30 Ordered PHOSPHORUS [CHEM] [facility] Lab 09/22/21 02:30 Ordered PHOSPHORUS [CHEM] [facility] Lab 09/22/21 08:30 Ordered POTASSIUM,K [CHEM] [facility] Lab 09/21/21 16:30 Ordered POTASSIUM,K [CHEM] [facility] Lab 09/21/21 20:30 Ordered POTASSIUM,K [CHEM] [facility] Lab 09/22/21 00:30 Ordered POTASSIUM,K [CHEM] [facility] Lab 09/22/21 02:30 Ordered POTASSIUM,K [CHEM] [facility] Lab 09/22/21 04:30 Ordered POTASSIUM,K [CHEM] [facility] Lab 09/22/21 06:30 Ordered POTASSIUM,K [CHEM] [facility] Lab 09/22/21 08:30 Ordered POTASSIUM,K [CHEM] [facility] Lab 09/22/21 10:30 Ordered POTASSIUM,K [CHEM] [facility] Lab 09/22/21 12:30 Ordered Dextrose 5%-0.45% NaCl [Dextrose 5%-1/2 NS] 1,000 ml Med 09/21/21 14:18 Active IV ASDIRECTED Dextrose 50% in Water Med 09/21/21 14:18 Active 50 ml IVPUSH ONETIME PRN Insulin Regular in 0.9 % NACL [Myxredlin in NS 100 UNIT Med 09/21/21 14:30 Active /100 ML] 100 ml IV ASDIRECTED Iopamidol [Isovue-370 (76%)] Med 09/21/21 10:15 Active 100 ml IV . DIRECTED Magnesium Sulfate/Water [Magnesium Sulfate in Water 2 Med 09/21/21 14:18 Active GM/50 ML] 50 ml IV ONETIME Potassium Chloride [KCL in Water 20 MEQ/100 ML] 20 meq Med 09/21/21 14:18 Active Premix Bag 1 bag IV ONETIME Potassium Chloride [KCL in Water 20 MEQ/100 ML] 20 meq Med 09/21/21 14:18 Active Premix Bag 1 bag IV Q2H Potassium Chloride [KCL in Water 20 MEQ/100 ML] 20 meq Med 09/21/21 14:18 Active Premix Bag 1 bag IV Q2H Potassium Chloride [Potassium Chloride Solution] Med 09/21/21 14:18 Active 20 meq PO NOW PRN Potassium Chloride [Potassium Chloride Solution] Med 09/21/21 14:18 Active 40 meq PO NOW PRN Potassium Chloride [Potassium Chloride Solution] Med 09/21/21 14:18 Active 40 meq PO Q2H PRN Sodium Chloride 0.9% [Normal Saline] 2,000 ml Med 09/21/21 14:18 Active IV .CONTINUOUS Sodium Chloride 0.9% [Saline Flush] Med 09/21/21 06:36 Active 10 ml FLUSH ASDIRECTED PRN Sodium Phosphate 60 mmole Med 09/21/21 14:18 Active Sodium Chloride 0.9% [Normal Saline] 250 ml IV ONETIME Isolation [COMM] Routine Oth 09/21/21 06:36 Ordered Medication Continuation Instructions [OM.PC] ASDIRECTED Oth 09/21/21 14:30 Ordered Medication Discontinuation Instructions [OM.PC] Oth 09/21/21 14:30 Ordered ASDIRECTED Saline Lock Insert [OM.PC] Routine Oth 09/21/21 06:36 Ordered Resuscitation Status Routine Resus Stat 09/21/21 14:26 Ordered EKG 12 Lead [EK] Routine Ther 09/21/21 09:02 Ordered Medication Orders Dextrose/Water (50% Dextrose In Water 50 Ml Syringe) 50 ml IVPUSH ONETIME PRN PRN Reason: Blood Glucose Sodium Chloride (Normal Saline) 2,000 mls @ 500 mls/hr IV .CONTINUOUS PRN PRN Reason: Blood Glucose Dextrose/Sodium Chloride (Dextrose 5%-1/2 Ns) 1,000 mls @ 150 mls/hr IV ASDIRECTED PRN PRN Reason: Blood Glucose Potassium Chloride 20 meq/ (Premix) 100 mls @ 50 mls/hr IV ONETIME ONE Stop: 09/21/21 16:17 Potassium Chloride 20 meq/ (Premix) 100 mls @ 50 mls/hr IV Q2H PRN PRN Reason: Hypokalemia Potassium Chloride 20 meq/ (Premix) 100 mls @ 50 mls/hr IV Q2H PRN PRN Reason: Hypokalemia Magnesium Sulfate (Magnesium Sulfate In Water 2 Gm/50 Ml) 50 mls @ 25 mls/hr IV ONETIME PRN PRN Reason: low magnesium Sodium Phosphate 60 mmole/ (Sodium Chloride) 270 mls @ 62.5 mls/hr IV ONETIME PRN PRN Reason: Low phophorus Insulin Regular in 0.9 % NACL (Myxredlin In Ns 100 Unit/100 Ml) 100 mls @ 10.886 mls/hr IV ASDIRECTED JOSEF; Protocol Iopamidol (Iopamidol 755 Mg/Ml 100 Ml Bottle) 100 ml IV . DIRECTED JOSEF Stop: 09/21/21 15:00 Last Admin: 09/21/21 10:48 Dose: 100 ml Documented by: BETHANIE Potassium Chloride (Potassium Chloride 10% 20 Meq/15 Ml Soln 15 Ml Ud Cup) 20 meq PO NOW PRN PRN Reason: Hypokalemia Potassium Chloride (Potassium Chloride 10% 20 Meq/15 Ml Soln 15 Ml Ud Cup) 40 meq PO NOW PRN PRN Reason: Hypokalemia Potassium Chloride (Potassium Chloride 10% 20 Meq/15 Ml Soln 15 Ml Ud Cup) 40 meq PO Q2H PRN PRN Reason: Hypokalemia Sodium Chloride (Sodium Chloride 0.9% 10 Ml Syringe) 10 ml FLUSH ASDIRECTED PRN PRN Reason: Keep Vein Open Last Admin: 09/21/21 10:48 Dose: 10 ml Documented by: Admin: 09/21/21 08:08 Dose: 10 ml Documented by: PREILOR Assessment/Plan Comment:: ASSESSMENT AND PLAN DIABETIC KETOACIDOSIS-likely as a result of recent COVID-19 infection -IV fluids and IV insulin per ketoacidosis protocol -Resume usual insulin when ketoacidosis has resolved -Management of electrolytes per protocol -Every hour glucometers -Every hour vital signs COVID-19 INFECTION-symptoms present for 8 days -Monoclonal antibody infusion per protocol -Symptomatic management MAINTENANCE ISSUES -DVT prophylaxis; enoxaparin 40 mg subcu daily -GI prophylaxis; not indicated -[place] catheter; not indicated -Nutrition; consistent carbohydrate diet -Nicotine dependence; not required CODE STATUS-FULL CODE ADMISSION STATUS-patient will be admitted to inpatient status, expect at least a 2 night hospital stay for evaluation and management of problems as outlined above. At the time of this admission I do not reasonably expected evaluation and management of this problem will require more than a 96 hour hospital stay. DISPOSITION-anticipate discharge to home after the hospital stay. PRIMARY CARE PROVIDER-Dr. Loco - Mortality Measure Prognosis:: Good
[2021-09-21] MEDS ORDERED: oxyCODONE 5 MG Tab PO PRN (14:36)
[2021-09-21] MEDS ORDERED: Acetaminophen 325 MG Tab PO PRN (14:36)
[2021-09-21] MEDS ORDERED: Ondansetron 4 MG/2 ML SDV IV PRN (14:36)
[2021-09-21] MEDS: Dextrose 5%-0.45% NaCl 1,000 ML IV PRN ×2 (15:14→21:30)
[2021-09-21] MEDS: Insulin Regular in 0.9 % NACL 100 ML IV SCH (15:16)
[2021-09-21] MEDS: Enoxaparin 40 MG/0.4 ML Syringe SUBCUT SCH (15:22)
[2021-09-21] MEDS ORDERED: diphenhydrAMINE 50 MG/ML SDV IVPUSH PRN (15:47)
[2021-09-21] MEDS ORDERED: EPINEPHrine 1 MG/ML SDV IM PRN (15:47)
[2021-09-21] MEDS ORDERED: methylPREDNISolone Sodium Succinate 125 MG/2 ML SDV IVPUSH PRN (15:47)
[2021-09-21] MEDS ORDERED: Famotidine 20 MG/2 ML SDV IVPUSH PRN (15:47)
[2021-09-21] MEDS ORDERED: Bamlanivimab 700 MG, ETESEVIMAB 1,400 MG in Sodium Chloride 0.9% 100 ML IV ONE (17:00)
[2021-09-21] MEDS ORDERED: Sodium Chloride 0.9% 10 ML Syringe FLUSH ONE (17:30)
[2021-09-22] MEDS ORDERED: Lidocaine 1% 2 ML ONE (01:53)
[2021-09-22] MEDS: Potassium Chloride 20 MEQ in Premix Bag 1 BAG IV PRN ×2 (02:08→21:09)
[2021-09-22] MEDS: Potassium Chloride 10% 20 MEQ/15 ML Soln 15 ML UD Cup PO PRN (05:04)
[2021-09-22] MEDS: Dextrose 5%-0.45% NaCl 1,000 ML IV PRN ×3 (06:13→18:09)
[2021-09-22 07:14] LABS: HEMOGLOBIN A1C 10.1 % (4.5-6.2)
[2021-09-22] MEDS ORDERED: Potassium Phos in 0.9 % NaCl 15 MMOL in Premix Bag 1 BAG IV ONE ×2 (10:30)
--- NOTE | 2021-09-22 12:24 | PCM.PN ---
- General Info Date of Service: 09/22/21 Subjective Update: Mr. Harp has remained stable since yesterday, glucose level significantly improved but he still has ketoacidosis present. Renal function has improved significantly and he has remained afebrile. Tolerated monoclonal antibody infusion without difficulty. Functional Status: Reports: Tolerating Diet, Urinating - Review of Systems General: Reports: No Symptoms Pulmonary: Reports: No Symptoms Cardiovascular: Reports: No Symptoms Gastrointestinal: Reports: No Symptoms Genitourinary: Reports: No Symptoms - Patient Data Vitals - Most Recent: Last Vital Signs Temp 97.6 F 09/22/21 12:00 Pulse 80 09/22/21 06:00 Resp 16 09/22/21 12:00 BP 132/66 09/22/21 12:00 Pulse Ox 100 09/22/21 12:00 Weight - Most Recent: 239 lb 15.923 oz I&O - Last 24 Hours: Intake & Output 09/21/21 09/22/21 09/22/21 22:59 06:59 14:59 Intake Total 539 2371 Output Total 1850 800 900 Balance -1311 1571 -900 Lab Results Last 24 Hours: Laboratory Results - last 24 hr 09/21/21 09/21/21 09/21/21 Range/Units 12:30 12:32 14:17 WBC (4.5-11.0) K/uL RBC (4.30-5.90) M/uL Hgb (12.0-15.0) g/dL Hct (40.0-54.0) % MCV (80-98) fL MCH (27-31) pg MCHC (32-36) % Plt Count (150-400) K/uL Neut % (Auto) (36-66) % Lymph % (Auto) (24-44) % [place] % (Auto) (2-6) % Eos % (Auto) (2-4) % Baso % (Auto) (0-1) % Sodium (140-148) mmol/L Potassium 5.5 H (3.6-5.2) mmol/L Chloride (100-108) mmol/L Carbon Dioxide (21-32) mmol/L Anion Gap (5.0-14.0) mmol/L BUN (7-18) mg/dL Creatinine (0.8-1.3) mg/dL Est Cr Clr Drug Dosing mL/min Estimated GFR (MDRD) (>60) Glucose (74-106) mg/dL POC Glucose 276 H 230 H (74-106) mg/dL Hemoglobin A1c (4.5-6.2) % Calcium (8.5-10.1) mg/dL Phosphorus (2.5-4.9) mg/dL Magnesium (1.8-2.4) mg/dL 09/21/21 09/21/21 09/21/21 Range/Units 14:30 15:11 16:10 WBC (4.5-11.0) K/uL RBC (4.30-5.90) M/uL Hgb (12.0-15.0) g/dL Hct (40.0-54.0) % MCV (80-98) fL MCH (27-31) pg MCHC (32-36) % Plt Count (150-400) K/uL Neut % (Auto) (36-66) % Lymph % (Auto) (24-44) % [place] % (Auto) (2-6) % Eos % (Auto) (2-4) % Baso % (Auto) (0-1) % Sodium 133 L (140-148) mmol/L Potassium 5.5 H (3.6-5.2) mmol/L Chloride 104 (100-108) mmol/L Carbon Dioxide 8 L (21-32) mmol/L Anion Gap 26.5 H (5.0-14.0) mmol/L BUN 19 H (7-18) mg/dL Creatinine 1.4 H (0.8-1.3) mg/dL Est Cr Clr Drug Dosing 83.28 mL/min Estimated GFR (MDRD) > 60 (>60) Glucose 204 H (74-106) mg/dL POC Glucose 220 H 235 H (74-106) mg/dL Hemoglobin A1c (4.5-6.2) % Calcium 7.3 L D (8.5-10.1) mg/dL Phosphorus 2.3 L (2.5-4.9) mg/dL Magnesium 2.0 (1.8-2.4) mg/dL 09/21/21 09/21/21 09/21/21 Range/Units 16:30 16:58 18:13 WBC (4.5-11.0) K/uL RBC (4.30-5.90) M/uL Hgb (12.0-15.0) g/dL Hct (40.0-54.0) % MCV (80-98) fL MCH (27-31) pg MCHC (32-36) % Plt Count (150-400) K/uL Neut % (Auto) (36-66) % Lymph % (Auto) (24-44) % [place] % (Auto) (2-6) % Eos % (Auto) (2-4) % Baso % (Auto) (0-1) % Sodium (140-148) mmol/L Potassium 5.1 (3.6-5.2) mmol/L Chloride (100-108) mmol/L Carbon Dioxide (21-32) mmol/L Anion Gap (5.0-14.0) mmol/L BUN (7-18) mg/dL Creatinine (0.8-1.3) mg/dL Est Cr Clr Drug Dosing mL/min Estimated GFR (MDRD) (>60) Glucose (74-106) mg/dL POC Glucose 244 H 265 H (74-106) mg/dL Hemoglobin A1c (4.5-6.2) % Calcium (8.5-10.1) mg/dL Phosphorus (2.5-4.9) mg/dL Magnesium (1.8-2.4) mg/dL 09/21/21 09/21/21 09/21/21 Range/Units 18:30 19:21 20:15 WBC (4.5-11.0) K/uL RBC (4.30-5.90) M/uL Hgb (12.0-15.0) g/dL Hct (40.0-54.0) % MCV (80-98) fL MCH (27-31) pg MCHC (32-36) % Plt Count (150-400) K/uL Neut % (Auto) (36-66) % Lymph % (Auto) (24-44) % [place] % (Auto) (2-6) % Eos % (Auto) (2-4) % Baso % (Auto) (0-1) % Sodium 131 L (140-148) mmol/L Potassium 4.6 (3.6-5.2) mmol/L Chloride 103 (100-108) mmol/L Carbon Dioxide 10 L (21-32) mmol/L Anion Gap 22.6 H (5.0-14.0) mmol/L BUN 16 (7-18) mg/dL Creatinine 1.4 H (0.8-1.3) mg/dL Est Cr Clr Drug Dosing 83.49 mL/min Estimated GFR (MDRD) > 60 (>60) Glucose 253 H (74-106) mg/dL POC Glucose 285 H 299 H (74-106) mg/dL Hemoglobin A1c (4.5-6.2) % Calcium 7.3 L (8.5-10.1) mg/dL Phosphorus (2.5-4.9) mg/dL Magnesium (1.8-2.4) mg/dL 09/21/21 09/21/21 09/21/21 Range/Units 20:30 21:03 22:03 WBC (4.5-11.0) K/uL RBC (4.30-5.90) M/uL Hgb (12.0-15.0) g/dL Hct (40.0-54.0) % MCV (80-98) fL MCH (27-31) pg MCHC (32-36) % Plt Count (150-400) K/uL Neut % (Auto) (36-66) % Lymph % (Auto) (24-44) % [place] % (Auto) (2-6) % Eos % (Auto) (2-4) % Baso % (Auto) (0-1) % Sodium (140-148) mmol/L Potassium 4.4 (3.6-5.2) mmol/L Chloride (100-108) mmol/L Carbon Dioxide (21-32) mmol/L Anion Gap (5.0-14.0) mmol/L BUN (7-18) mg/dL Creatinine (0.8-1.3) mg/dL Est Cr Clr Drug Dosing mL/min Estimated GFR (MDRD) (>60) Glucose (74-106) mg/dL POC Glucose 296 H 270 H (74-106) mg/dL Hemoglobin A1c (4.5-6.2) % Calcium (8.5-10.1) mg/dL Phosphorus 1.8 L (2.5-4.9) mg/dL Magnesium 1.7 L (1.8-2.4) mg/dL 09/21/21 09/21/21 09/22/21 Range/Units 22:06 23:05 00:09 WBC (4.5-11.0) K/uL RBC (4.30-5.90) M/uL Hgb (12.0-15.0) g/dL Hct (40.0-54.0) % MCV (80-98) fL MCH (27-31) pg MCHC (32-36) % Plt Count (150-400) K/uL Neut % (Auto) (36-66) % Lymph % (Auto) (24-44) % [place] % (Auto) (2-6) % Eos % (Auto) (2-4) % Baso % (Auto) (0-1) % Sodium 132 L (140-148) mmol/L Potassium 4.0 (3.6-5.2) mmol/L Chloride 103 (100-108) mmol/L Carbon Dioxide 12 L (21-32) mmol/L Anion Gap 21.0 H (5.0-14.0) mmol/L BUN 16 (7-18) mg/dL Creatinine 1.3 (0.8-1.3) mg/dL Est Cr Clr Drug Dosing 89.91 mL/min Estimated GFR (MDRD) > 60 (>60) Glucose 262 H (74-106) mg/dL POC Glucose 239 H 217 H (74-106) mg/dL Hemoglobin A1c (4.5-6.2) % Calcium 7.5 L (8.5-10.1) mg/dL Phosphorus (2.5-4.9) mg/dL Magnesium (1.8-2.4) mg/dL 09/22/21 09/22/21 09/22/21 Range/Units 00:11 01:06 02:06 WBC (4.5-11.0) K/uL RBC (4.30-5.90) M/uL Hgb (12.0-15.0) g/dL Hct (40.0-54.0) % MCV (80-98) fL MCH (27-31) pg MCHC (32-36) % Plt Count (150-400) K/uL Neut % (Auto) (36-66) % Lymph % (Auto) (24-44) % [place] % (Auto) (2-6) % Eos % (Auto) (2-4) % Baso % (Auto) (0-1) % Sodium (140-148) mmol/L Potassium 3.8 (3.6-5.2) mmol/L Chloride (100-108) mmol/L Carbon Dioxide (21-32) mmol/L Anion Gap (5.0-14.0) mmol/L BUN (7-18) mg/dL Creatinine (0.8-1.3) mg/dL Est Cr Clr Drug Dosing mL/min Estimated GFR (MDRD) (>60) Glucose (74-106) mg/dL POC Glucose 223 H 222 H (74-106) mg/dL Hemoglobin A1c (4.5-6.2) % Calcium (8.5-10.1) mg/dL Phosphorus (2.5-4.9) mg/dL Magnesium (1.8-2.4) mg/dL 09/22/21 09/22/21 09/22/21 Range/Units 02:10 03:03 04:00 WBC (4.5-11.0) K/uL RBC (4.30-5.90) M/uL Hgb (12.0-15.0) g/dL Hct (40.0-54.0) % MCV (80-98) fL MCH (27-31) pg MCHC (32-36) % Plt Count (150-400) K/uL Neut % (Auto) (36-66) % Lymph % (Auto) (24-44) % [place] % (Auto) (2-6) % Eos % (Auto) (2-4) % Baso % (Auto) (0-1) % Sodium 133 L (140-148) mmol/L Potassium 3.8 (3.6-5.2) mmol/L Chloride 103 (100-108) mmol/L Carbon Dioxide 14 L (21-32) mmol/L Anion Gap 19.8 H (5.0-14.0) mmol/L BUN 15 (7-18) mg/dL Creatinine 1.4 H (0.8-1.3) mg/dL Est Cr Clr Drug Dosing 83.49 mL/min Estimated GFR (MDRD) > 60 (>60) Glucose 212 H (74-106) mg/dL POC Glucose 200 H (74-106) mg/dL Hemoglobin A1c 10.1 H (4.5-6.2) % Calcium 7.3 L (8.5-10.1) mg/dL Phosphorus 1.5 L (2.5-4.9) mg/dL Magnesium 2.1 (1.8-2.4) mg/dL 09/22/21 09/22/21 09/22/21 Range/Units 04:00 04:00 04:08 WBC 10.4 (4.5-11.0) K/uL RBC 5.16 (4.30-5.90) M/uL Hgb 15.3 H D (12.0-15.0) g/dL Hct 42.2 (40.0-54.0) % MCV 82 (80-98) fL MCH 30 (27-31) pg MCHC 36 (32-36) % Plt Count 272 (150-400) K/uL Neut % (Auto) 78.8 H (36-66) % Lymph % (Auto) 13.0 L (24-44) % [place] % (Auto) 7.9 H (2-6) % Eos % (Auto) 0.0 L (2-4) % Baso % (Auto) 0.3 (0-1) % Sodium 133 L (140-148) mmol/L Potassium 3.9 (3.6-5.2) mmol/L Chloride 103 (100-108) mmol/L Carbon Dioxide 14 L (21-32) mmol/L Anion Gap 19.9 H (5.0-14.0) mmol/L BUN 14 (7-18) mg/dL Creatinine 1.3 (0.8-1.3) mg/dL Est Cr Clr Drug Dosing 89.91 mL/min Estimated GFR (MDRD) > 60 (>60) Glucose 202 H (74-106) mg/dL POC Glucose 249 H (74-106) mg/dL Hemoglobin A1c (4.5-6.2) % Calcium 7.6 L (8.5-10.1) mg/dL Phosphorus (2.5-4.9) mg/dL Magnesium (1.8-2.4) mg/dL 09/22/21 09/22/21 09/22/21 Range/Units 05:02 06:05 06:10 WBC (4.5-11.0) K/uL RBC (4.30-5.90) M/uL Hgb (12.0-15.0) g/dL Hct (40.0-54.0) % MCV (80-98) fL MCH (27-31) pg MCHC (32-36) % Plt Count (150-400) K/uL Neut % (Auto) (36-66) % Lymph % (Auto) (24-44) % [place] % (Auto) (2-6) % Eos % (Auto) (2-4) % Baso % (Auto) (0-1) % Sodium (140-148) mmol/L Potassium 4.0 (3.6-5.2) mmol/L Chloride (100-108) mmol/L Carbon Dioxide (21-32) mmol/L Anion Gap (5.0-14.0) mmol/L BUN (7-18) mg/dL Creatinine (0.8-1.3) mg/dL Est Cr Clr Drug Dosing mL/min Estimated GFR (MDRD) (>60) Glucose (74-106) mg/dL POC Glucose 218 H 207 H (74-106) mg/dL Hemoglobin A1c (4.5-6.2) % Calcium (8.5-10.1) mg/dL Phosphorus (2.5-4.9) mg/dL Magnesium (1.8-2.4) mg/dL 09/22/21 09/22/21 09/22/21 Range/Units 07:05 08:00 08:07 WBC (4.5-11.0) K/uL RBC (4.30-5.90) M/uL Hgb (12.0-15.0) g/dL Hct (40.0-54.0) % MCV (80-98) fL MCH (27-31) pg MCHC (32-36) % Plt Count (150-400) K/uL Neut % (Auto) (36-66) % Lymph % (Auto) (24-44) % [place] % (Auto) (2-6) % Eos % (Auto) (2-4) % Baso % (Auto) (0-1) % Sodium (140-148) mmol/L Potassium 3.7 (3.6-5.2) mmol/L Chloride (100-108) mmol/L Carbon Dioxide (21-32) mmol/L Anion Gap (5.0-14.0) mmol/L BUN (7-18) mg/dL Creatinine (0.8-1.3) mg/dL Est Cr Clr Drug Dosing mL/min Estimated GFR (MDRD) (>60) Glucose (74-106) mg/dL POC Glucose 223 H 235 H (74-106) mg/dL Hemoglobin A1c (4.5-6.2) % Calcium (8.5-10.1) mg/dL Phosphorus 0.8 L (2.5-4.9) mg/dL Magnesium 2.1 (1.8-2.4) mg/dL 09/22/21 09/22/21 09/22/21 Range/Units 09:12 09:30 10:16 WBC (4.5-11.0) K/uL RBC (4.30-5.90) M/uL Hgb (12.0-15.0) g/dL Hct (40.0-54.0) % MCV (80-98) fL MCH (27-31) pg MCHC (32-36) % Plt Count (150-400) K/uL Neut % (Auto) (36-66) % Lymph % (Auto) (24-44) % [place] % (Auto) (2-6) % Eos % (Auto) (2-4) % Baso % (Auto) (0-1) % Sodium 135 L (140-148) mmol/L Potassium 3.7 (3.6-5.2) mmol/L Chloride 107 (100-108) mmol/L Carbon Dioxide 14 L (21-32) mmol/L Anion Gap 17.7 H (5.0-14.0) mmol/L BUN 12 (7-18) mg/dL Creatinine 1.1 (0.8-1.3) mg/dL Est Cr Clr Drug Dosing 106.26 mL/min Estimated GFR (MDRD) > 60 (>60) Glucose 203 H (74-106) mg/dL POC Glucose 207 H 194 H (74-106) mg/dL Hemoglobin A1c (4.5-6.2) % Calcium 7.7 L (8.5-10.1) mg/dL Phosphorus (2.5-4.9) mg/dL Magnesium (1.8-2.4) mg/dL 09/22/21 09/22/21 09/22/21 Range/Units 11:02 11:55 12:03 WBC (4.5-11.0) K/uL RBC (4.30-5.90) M/uL Hgb (12.0-15.0) g/dL Hct (40.0-54.0) % MCV (80-98) fL MCH (27-31) pg MCHC (32-36) % Plt Count (150-400) K/uL Neut % (Auto) (36-66) % Lymph % (Auto) (24-44) % [place] % (Auto) (2-6) % Eos % (Auto) (2-4) % Baso % (Auto) (0-1) % Sodium (140-148) mmol/L Potassium 5.8 H (3.6-5.2) mmol/L Chloride (100-108) mmol/L Carbon Dioxide (21-32) mmol/L Anion Gap (5.0-14.0) mmol/L BUN (7-18) mg/dL Creatinine (0.8-1.3) mg/dL Est Cr Clr Drug Dosing mL/min Estimated GFR (MDRD) (>60) Glucose (74-106) mg/dL POC Glucose 185 H 187 H (74-106) mg/dL Hemoglobin A1c (4.5-6.2) % Calcium (8.5-10.1) mg/dL Phosphorus (2.5-4.9) mg/dL Magnesium (1.8-2.4) mg/dL Med Orders - Current: Current Medications Acetaminophen (Acetaminophen 325 Mg Tab) 650 mg PO Q4H PRN PRN Reason: Pain (Mild 1-3)/fever Dextrose/Water (50% Dextrose In Water 50 Ml Syringe) 50 ml IVPUSH ONETIME PRN PRN Reason: Blood Glucose Enoxaparin Sodium (Enoxaparin 40 Mg/0.4 Ml Syringe) 40 mg SUBCUT Q24H JOSEF Last Admin: 09/21/21 15:22 Dose: 40 mg Documented by: Sodium Chloride (Normal Saline) 2,000 mls @ 500 mls/hr IV .CONTINUOUS PRN PRN Reason: Blood Glucose Dextrose/Sodium Chloride (Dextrose 5%-1/2 Ns) 1,000 mls @ 150 mls/hr IV ASDIRECTED PRN PRN Reason: Blood Glucose Last Admin: 09/22/21 11:56 Dose: 150 mls/hr Documented by: Potassium Chloride 20 meq/ (Premix) 100 mls @ 50 mls/hr IV Q2H PRN PRN Reason: Hypokalemia Potassium Chloride 20 meq/ (Premix) 100 mls @ 50 mls/hr IV Q2H PRN PRN Reason: Hypokalemia Magnesium Sulfate (Magnesium Sulfate In Water 2 Gm/50 Ml) 50 mls @ 25 mls/hr IV ONETIME PRN PRN Reason: low magnesium Last Admin: 09/21/21 21:25 Dose: 25 mls/hr Documented by: Sodium Phosphate 60 mmole/ (Sodium Chloride) 270 mls @ 62.5 mls/hr IV ONETIME PRN PRN Reason: Low phophorus Insulin Regular in 0.9 % NACL (Myxredlin In Ns 100 Unit/100 Ml) 100 mls @ 10.886 mls/hr IV ASDIRECTED [facility]; Protocol Last Infusion: 09/22/21 09:15 Dose: 0.03 units/kg/hr, 3 mls/hr Documented by: Potassium Chloride 20 meq/ (Premix) 100 mls @ 50 mls/hr IV ONETIME PRN PRN Reason: SEE COMMENT Last Admin: 09/22/21 02:08 Dose: 50 mls/hr Documented by: Potassium Phosphate 15 mmol/ (Premix) 250 mls @ 84 mls/hr IV ONETIME ONE Stop: 09/22/21 13:28 Last Admin: 09/22/21 10:17 Dose: 84 mls/hr Documented by: Sodium Phosphate 45 mmole/ (Sodium Chloride) 265 mls @ 65 mls/hr IV ONETIME ONE Stop: 09/22/21 17:34 Ondansetron HCl (Ondansetron 4 Mg/2 Ml Sdv) 4 mg IV Q4H PRN PRN Reason: Nausea/Vomiting Oxycodone HCl (Oxycodone 5 Mg Tab) 5 mg PO Q4H PRN PRN Reason: Pain (moderate 4-6) Potassium Chloride (Potassium Chloride 10% 20 Meq/15 Ml Soln 15 Ml Ud Cup) 20 meq PO NOW PRN PRN Reason: Hypokalemia Last Admin: 09/22/21 05:04 Dose: 20 meq Documented by: Potassium Chloride (Potassium Chloride 10% 20 Meq/15 Ml Soln 15 Ml Ud Cup) 40 meq PO NOW PRN PRN Reason: Hypokalemia Potassium Chloride (Potassium Chloride 10% 20 Meq/15 Ml Soln 15 Ml Ud Cup) 40 meq PO Q2H PRN PRN Reason: Hypokalemia Discontinued Medications Diphenhydramine HCl (Diphenhydramine 50 Mg/Ml Sdv) 50 mg IVPUSH ASDIRECTED PRN PRN Reason: hypersensitivity reaction Stop: 09/21/21 18:00 Epinephrine HCl (Epinephrine 1 Mg/Ml Sdv) 0.3 mg IM ASDIRECTED PRN PRN Reason: hypersensitivity reaction Stop: 09/21/21 18:00 Famotidine (Famotidine 20 Mg/2 Ml Sdv) 20 mg IVPUSH ASDIRECTED PRN PRN Reason: hypersensitivity reaction Stop: 09/21/21 18:00 Hydromorphone HCl (Hydromorphone 0.5 Mg/0.5 Ml Syringe) 0.25 mg IVPUSH ONETIME ONE Stop: 09/21/21 09:23 Last Admin: 09/21/21 09:31 Dose: 0.25 mg Documented by: Sodium Chloride (Normal Saline) 1,000 mls @ 500 mls/hr IV ASDIRECTED [facility] Last Admin: 09/21/21 08:07 Dose: 500 mls/hr Documented by: Insulin Regular in 0.9 % NACL (Myxredlin In Ns 100 Unit/100 Ml) 100 unit in 100 mls @ 10.886 mls/hr IV ASDIRECTED [facility] Last Admin: 09/21/21 09:05 Dose: 0.1 units/kg/hr, 10.886 mls/hr Documented by: Sodium Chloride (Normal Saline) 100 mls @ 3 mls/sec IV ASDIRECTED [facility] Stop: 09/21/21 15:00 Last Admin: 09/21/21 10:48 Dose: 3 mls/sec Documented by: Potassium Chloride/Sodium Chloride (Normal Saline With 20 Meq Kcl) 1,000 mls @ 500 mls/hr IV ASDIRECTED [facility] Last Admin: 09/21/21 10:35 Dose: 500 mls/hr Documented by: Sodium Chloride (Normal Saline) 1,000 mls @ 500 mls/hr IV ASDIRECTED JOSEF Last Admin: 09/21/21 13:10 Dose: 500 mls/hr Documented by: Bamlanivimab 700 mg/Etesevimab 1,400 mg/ Sodium Chloride 160 mls @ 310 mls/hr IV ONETIME ONE Stop: 09/21/21 17:30 Last Admin: 09/21/21 16:52 Dose: 310 mls/hr Documented by: Lidocaine HCl (Xylocaine-Mpf 1%) Confirm Administered Dose 2 mls @ as directed .ROUTE .STK-MED ONE Stop: 09/22/21 01:54 Last Admin: 09/22/21 02:09 Dose: Not Given Documented by: Iopamidol (Iopamidol 755 Mg/Ml 100 Ml Bottle) 100 ml IV . DIRECTED [facility] Stop: 09/21/21 15:00 Last Admin: 09/21/21 10:48 Dose: 100 ml Documented by: Ketorolac Tromethamine (Ketorolac 30 Mg/Ml Sdv) 30 mg IVPUSH ONETIME ONE Stop: 09/21/21 09:23 Last Admin: 09/21/21 09:30 Dose: 30 mg Documented by: Lidocaine HCl (Lidocaine 1% 5 Ml Sdv) 2 ml INJECT ONETIME ONE Stop: 09/22/21 01:54 Last Admin: 09/22/21 02:09 Dose: 2 ml Documented by: Methylprednisolone Sodium Succinate (Methylprednisolone Sodium Succinate 125 Mg/2 Ml Sdv) 125 mg IVPUSH ASDIRECTED PRN PRN Reason: hypersensitivity reaction Stop: 09/21/21 18:00 Metoclopramide HCl (Metoclopramide 10 Mg/2 Ml Sdv) 5 mg IVPUSH ONETIME ONE Stop: 09/21/21 08:27 Last Admin: 09/21/21 09:06 Dose: 5 mg Documented by: Ondansetron HCl (Ondansetron 4 Mg/2 Ml Sdv) 4 mg IVPUSH ONETIME ONE Stop: 09/21/21 06:37 Last Admin: 09/21/21 08:07 Dose: 4 mg Documented by: Sodium Chloride (Sodium Chloride 0.9% 10 Ml Syringe) 10 ml FLUSH ASDIRECTED PRN PRN Reason: Keep Vein Open Last Admin: 09/21/21 10:48 Dose: 10 ml Documented by: Sodium Chloride (Sodium Chloride 0.9% 10 Ml Sdv) 10 ml FLUSH ONETIME ONE Stop: 09/21/21 10:16 Last Admin: 09/21/21 10:19 Dose: 10 ml Documented by: Sodium Chloride (Sodium Chloride 0.9% 10 Ml Syringe) 30 ml FLUSH ONETIME ONE Stop: 09/21/21 17:31 Last Admin: 09/21/21 18:07 Dose: 30 ml Documented by: - Exam Quality Assessment: DVT Prophylaxis General: Alert, Oriented, Cooperative, Mild Distress Lungs: Clear to Auscultation, Normal Respiratory Effort Cardiovascular: Regular Rate, Regular Rhythm, No Murmurs GI/Abdominal Exam: Soft, Non-Tender, No Organomegaly, No Distention Extremities: Non-Tender, No Pedal Edema - Patient Data Lab Results Last 24 hrs: Laboratory Results - last 24 hr 09/21/21 09/21/21 09/21/21 Range/Units 12:30 12:32 14:17 WBC (4.5-11.0) K/uL RBC (4.30-5.90) M/uL Hgb (12.0-15.0) g/dL Hct (40.0-54.0) % MCV (80-98) fL MCH (27-31) pg MCHC (32-36) % Plt Count (150-400) K/uL Neut % (Auto) (36-66) % Lymph % (Auto) (24-44) % [place] % (Auto) (2-6) % Eos % (Auto) (2-4) % Baso % (Auto) (0-1) % Sodium (140-148) mmol/L Potassium 5.5 H (3.6-5.2) mmol/L Chloride (100-108) mmol/L Carbon Dioxide (21-32) mmol/L Anion Gap (5.0-14.0) mmol/L BUN (7-18) mg/dL Creatinine (0.8-1.3) mg/dL Est Cr Clr Drug Dosing mL/min Estimated GFR (MDRD) (>60) Glucose (74-106) mg/dL POC Glucose 276 H 230 H (74-106) mg/dL Hemoglobin A1c (4.5-6.2) % Calcium (8.5-10.1) mg/dL Phosphorus (2.5-4.9) mg/dL Magnesium (1.8-2.4) mg/dL 09/21/21 09/21/21 09/21/21 Range/Units 14:30 15:11 16:10 WBC (4.5-11.0) K/uL RBC (4.30-5.90) M/uL Hgb (12.0-15.0) g/dL Hct (40.0-54.0) % MCV (80-98) fL MCH (27-31) pg MCHC (32-36) % Plt Count (150-400) K/uL Neut % (Auto) (36-66) % Lymph % (Auto) (24-44) % [place] % (Auto) (2-6) % Eos % (Auto) (2-4) % Baso % (Auto) (0-1) % Sodium 133 L (140-148) mmol/L Potassium 5.5 H (3.6-5.2) mmol/L Chloride 104 (100-108) mmol/L Carbon Dioxide 8 L (21-32) mmol/L Anion Gap 26.5 H (5.0-14.0) mmol/L BUN 19 H (7-18) mg/dL Creatinine 1.4 H (0.8-1.3) mg/dL Est Cr Clr Drug Dosing 83.28 mL/min Estimated GFR (MDRD) > 60 (>60) Glucose 204 H (74-106) mg/dL POC Glucose 220 H 235 H (74-106) mg/dL Hemoglobin A1c (4.5-6.2) % Calcium 7.3 L D (8.5-10.1) mg/dL Phosphorus 2.3 L (2.5-4.9) mg/dL Magnesium 2.0 (1.8-2.4) mg/dL 09/21/21 09/21/21 09/21/21 Range/Units 16:30 16:58 18:13 WBC (4.5-11.0) K/uL RBC (4.30-5.90) M/uL Hgb (12.0-15.0) g/dL Hct (40.0-54.0) % MCV (80-98) fL MCH (27-31) pg MCHC (32-36) % Plt Count (150-400) K/uL Neut % (Auto) (36-66) % Lymph % (Auto) (24-44) % [place] % (Auto) (2-6) % Eos % (Auto) (2-4) % Baso % (Auto) (0-1) % Sodium (140-148) mmol/L Potassium 5.1 (3.6-5.2) mmol/L Chloride (100-108) mmol/L Carbon Dioxide (21-32) mmol/L Anion Gap (5.0-14.0) mmol/L BUN (7-18) mg/dL Creatinine (0.8-1.3) mg/dL Est Cr Clr Drug Dosing mL/min Estimated GFR (MDRD) (>60) Glucose (74-106) mg/dL POC Glucose 244 H 265 H (74-106) mg/dL Hemoglobin A1c (4.5-6.2) % Calcium (8.5-10.1) mg/dL Phosphorus (2.5-4.9) mg/dL Magnesium (1.8-2.4) mg/dL 09/21/21 09/21/21 09/21/21 Range/Units 18:30 19:21 20:15 WBC (4.5-11.0) K/uL RBC (4.30-5.90) M/uL Hgb (12.0-15.0) g/dL Hct (40.0-54.0) % MCV (80-98) fL MCH (27-31) pg MCHC (32-36) % Plt Count (150-400) K/uL Neut % (Auto) (36-66) % Lymph % (Auto) (24-44) % [place] % (Auto) (2-6) % Eos % (Auto) (2-4) % Baso % (Auto) (0-1) % Sodium 131 L (140-148) mmol/L Potassium 4.6 (3.6-5.2) mmol/L Chloride 103 (100-108) mmol/L Carbon Dioxide 10 L (21-32) mmol/L Anion Gap 22.6 H (5.0-14.0) mmol/L BUN 16 (7-18) mg/dL Creatinine 1.4 H (0.8-1.3) mg/dL Est Cr Clr Drug Dosing 83.49 mL/min Estimated GFR (MDRD) > 60 (>60) Glucose 253 H (74-106) mg/dL POC Glucose 285 H 299 H (74-106) mg/dL Hemoglobin A1c (4.5-6.2) % Calcium 7.3 L (8.5-10.1) mg/dL Phosphorus (2.5-4.9) mg/dL Magnesium (1.8-2.4) mg/dL 09/21/21 09/21/21 09/21/21 Range/Units 20:30 21:03 22:03 WBC (4.5-11.0) K/uL RBC (4.30-5.90) M/uL Hgb (12.0-15.0) g/dL Hct (40.0-54.0) % MCV (80-98) fL MCH (27-31) pg MCHC (32-36) % Plt Count (150-400) K/uL Neut % (Auto) (36-66) % Lymph % (Auto) (24-44) % [place] % (Auto) (2-6) % Eos % (Auto) (2-4) % Baso % (Auto) (0-1) % Sodium (140-148) mmol/L Potassium 4.4 (3.6-5.2) mmol/L Chloride (100-108) mmol/L Carbon Dioxide (21-32) mmol/L Anion Gap (5.0-14.0) mmol/L BUN (7-18) mg/dL Creatinine (0.8-1.3) mg/dL Est Cr Clr Drug Dosing mL/min Estimated GFR (MDRD) (>60) Glucose (74-106) mg/dL POC Glucose 296 H 270 H (74-106) mg/dL Hemoglobin A1c (4.5-6.2) % Calcium (8.5-10.1) mg/dL Phosphorus 1.8 L (2.5-4.9) mg/dL Magnesium 1.7 L (1.8-2.4) mg/dL 09/21/21 09/21/21 09/22/21 Range/Units 22:06 23:05 00:09 WBC (4.5-11.0) K/uL RBC (4.30-5.90) M/uL Hgb (12.0-15.0) g/dL Hct (40.0-54.0) % MCV (80-98) fL MCH (27-31) pg MCHC (32-36) % Plt Count (150-400) K/uL Neut % (Auto) (36-66) % Lymph % (Auto) (24-44) % [place] % (Auto) (2-6) % Eos % (Auto) (2-4) % Baso % (Auto) (0-1) % Sodium 132 L (140-148) mmol/L Potassium 4.0 (3.6-5.2) mmol/L Chloride 103 (100-108) mmol/L Carbon Dioxide 12 L (21-32) mmol/L Anion Gap 21.0 H (5.0-14.0) mmol/L BUN 16 (7-18) mg/dL Creatinine 1.3 (0.8-1.3) mg/dL Est Cr Clr Drug Dosing 89.91 mL/min Estimated GFR (MDRD) > 60 (>60) Glucose 262 H (74-106) mg/dL POC Glucose 239 H 217 H (74-106) mg/dL Hemoglobin A1c (4.5-6.2) % Calcium 7.5 L (8.5-10.1) mg/dL Phosphorus (2.5-4.9) mg/dL Magnesium (1.8-2.4) mg/dL 09/22/21 09/22/21 09/22/21 Range/Units 00:11 01:06 02:06 WBC (4.5-11.0) K/uL RBC (4.30-5.90) M/uL Hgb (12.0-15.0) g/dL Hct (40.0-54.0) % MCV (80-98) fL MCH (27-31) pg MCHC (32-36) % Plt Count (150-400) K/uL Neut % (Auto) (36-66) % Lymph % (Auto) (24-44) % [place] % (Auto) (2-6) % Eos % (Auto) (2-4) % Baso % (Auto) (0-1) % Sodium (140-148) mmol/L Potassium 3.8 (3.6-5.2) mmol/L Chloride (100-108) mmol/L Carbon Dioxide (21-32) mmol/L Anion Gap (5.0-14.0) mmol/L BUN (7-18) mg/dL Creatinine (0.8-1.3) mg/dL Est Cr Clr Drug Dosing mL/min Estimated GFR (MDRD) (>60) Glucose (74-106) mg/dL POC Glucose 223 H 222 H (74-106) mg/dL Hemoglobin A1c (4.5-6.2) % Calcium (8.5-10.1) mg/dL Phosphorus (2.5-4.9) mg/dL Magnesium (1.8-2.4) mg/dL 09/22/21 09/22/21 09/22/21 Range/Units 02:10 03:03 04:00 WBC (4.5-11.0) K/uL RBC (4.30-5.90) M/uL Hgb (12.0-15.0) g/dL Hct (40.0-54.0) % MCV (80-98) fL MCH (27-31) pg MCHC (32-36) % Plt Count (150-400) K/uL Neut % (Auto) (36-66) % Lymph % (Auto) (24-44) % [place] % (Auto) (2-6) % Eos % (Auto) (2-4) % Baso % (Auto) (0-1) % Sodium 133 L (140-148) mmol/L Potassium 3.8 (3.6-5.2) mmol/L Chloride 103 (100-108) mmol/L Carbon Dioxide 14 L (21-32) mmol/L Anion Gap 19.8 H (5.0-14.0) mmol/L BUN 15 (7-18) mg/dL Creatinine 1.4 H (0.8-1.3) mg/dL Est Cr Clr Drug Dosing 83.49 mL/min Estimated GFR (MDRD) > 60 (>60) Glucose 212 H (74-106) mg/dL POC Glucose 200 H (74-106) mg/dL Hemoglobin A1c 10.1 H (4.5-6.2) % Calcium 7.3 L (8.5-10.1) mg/dL Phosphorus 1.5 L (2.5-4.9) mg/dL Magnesium 2.1 (1.8-2.4) mg/dL 09/22/21 09/22/21 09/22/21 Range/Units 04:00 04:00 04:08 WBC 10.4 (4.5-11.0) K/uL RBC 5.16 (4.30-5.90) M/uL Hgb 15.3 H D (12.0-15.0) g/dL Hct 42.2 (40.0-54.0) % MCV 82 (80-98) fL MCH 30 (27-31) pg MCHC 36 (32-36) % Plt Count 272 (150-400) K/uL Neut % (Auto) 78.8 H (36-66) % Lymph % (Auto) 13.0 L (24-44) % [place] % (Auto) 7.9 H (2-6) % Eos % (Auto) 0.0 L (2-4) % Baso % (Auto) 0.3 (0-1) % Sodium 133 L (140-148) mmol/L Potassium 3.9 (3.6-5.2) mmol/L Chloride 103 (100-108) mmol/L Carbon Dioxide 14 L (21-32) mmol/L Anion Gap 19.9 H (5.0-14.0) mmol/L BUN 14 (7-18) mg/dL Creatinine 1.3 (0.8-1.3) mg/dL Est Cr Clr Drug Dosing 89.91 mL/min Estimated GFR (MDRD) > 60 (>60) Glucose 202 H (74-106) mg/dL POC Glucose 249 H (74-106) mg/dL Hemoglobin A1c (4.5-6.2) % Calcium 7.6 L (8.5-10.1) mg/dL Phosphorus (2.5-4.9) mg/dL Magnesium (1.8-2.4) mg/dL 09/22/21 09/22/21 09/22/21 Range/Units 05:02 06:05 06:10 WBC (4.5-11.0) K/uL RBC (4.30-5.90) M/uL Hgb (12.0-15.0) g/dL Hct (40.0-54.0) % MCV (80-98) fL MCH (27-31) pg MCHC (32-36) % Plt Count (150-400) K/uL Neut % (Auto) (36-66) % Lymph % (Auto) (24-44) % [place] % (Auto) (2-6) % Eos % (Auto) (2-4) % Baso % (Auto) (0-1) % Sodium (140-148) mmol/L Potassium 4.0 (3.6-5.2) mmol/L Chloride (100-108) mmol/L Carbon Dioxide (21-32) mmol/L Anion Gap (5.0-14.0) mmol/L BUN (7-18) mg/dL Creatinine (0.8-1.3) mg/dL Est Cr Clr Drug Dosing mL/min Estimated GFR (MDRD) (>60) Glucose (74-106) mg/dL POC Glucose 218 H 207 H (74-106) mg/dL Hemoglobin A1c (4.5-6.2) % Calcium (8.5-10.1) mg/dL Phosphorus (2.5-4.9) mg/dL Magnesium (1.8-2.4) mg/dL 09/22/21 09/22/21 09/22/21 Range/Units 07:05 08:00 08:07 WBC (4.5-11.0) K/uL RBC (4.30-5.90) M/uL Hgb (12.0-15.0) g/dL Hct (40.0-54.0) % MCV (80-98) fL MCH (27-31) pg MCHC (32-36) % Plt Count (150-400) K/uL Neut % (Auto) (36-66) % Lymph % (Auto) (24-44) % [place] % (Auto) (2-6) % Eos % (Auto) (2-4) % Baso % (Auto) (0-1) % Sodium (140-148) mmol/L Potassium 3.7 (3.6-5.2) mmol/L Chloride (100-108) mmol/L Carbon Dioxide (21-32) mmol/L Anion Gap (5.0-14.0) mmol/L BUN (7-18) mg/dL Creatinine (0.8-1.3) mg/dL Est Cr Clr Drug Dosing mL/min Estimated GFR (MDRD) (>60) Glucose (74-106) mg/dL POC Glucose 223 H 235 H (74-106) mg/dL Hemoglobin A1c (4.5-6.2) % Calcium (8.5-10.1) mg/dL Phosphorus 0.8 L (2.5-4.9) mg/dL Magnesium 2.1 (1.8-2.4) mg/dL 09/22/21 09/22/21 09/22/21 Range/Units 09:12 09:30 10:16 WBC (4.5-11.0) K/uL RBC (4.30-5.90) M/uL Hgb (12.0-15.0) g/dL Hct (40.0-54.0) % MCV (80-98) fL MCH (27-31) pg MCHC (32-36) % Plt Count (150-400) K/uL Neut % (Auto) (36-66) % Lymph % (Auto) (24-44) % [place] % (Auto) (2-6) % Eos % (Auto) (2-4) % Baso % (Auto) (0-1) % Sodium 135 L (140-148) mmol/L Potassium 3.7 (3.6-5.2) mmol/L Chloride 107 (100-108) mmol/L Carbon Dioxide 14 L (21-32) mmol/L Anion Gap 17.7 H (5.0-14.0) mmol/L BUN 12 (7-18) mg/dL Creatinine 1.1 (0.8-1.3) mg/dL Est Cr Clr Drug Dosing 106.26 mL/min Estimated GFR (MDRD) > 60 (>60) Glucose 203 H (74-106) mg/dL POC Glucose 207 H 194 H (74-106) mg/dL Hemoglobin A1c (4.5-6.2) % Calcium 7.7 L (8.5-10.1) mg/dL Phosphorus (2.5-4.9) mg/dL Magnesium (1.8-2.4) mg/dL 09/22/21 09/22/21 09/22/21 Range/Units 11:02 11:55 12:03 WBC (4.5-11.0) K/uL RBC (4.30-5.90) M/uL Hgb (12.0-15.0) g/dL Hct (40.0-54.0) % MCV (80-98) fL MCH (27-31) pg MCHC (32-36) % Plt Count (150-400) K/uL Neut % (Auto) (36-66) % Lymph % (Auto) (24-44) % [place] % (Auto) (2-6) % Eos % (Auto) (2-4) % Baso % (Auto) (0-1) % Sodium (140-148) mmol/L Potassium 5.8 H (3.6-5.2) mmol/L Chloride (100-108) mmol/L Carbon Dioxide (21-32) mmol/L Anion Gap (5.0-14.0) mmol/L BUN (7-18) mg/dL Creatinine (0.8-1.3) mg/dL Est Cr Clr Drug Dosing mL/min Estimated GFR (MDRD) (>60) Glucose (74-106) mg/dL POC Glucose 185 H 187 H (74-106) mg/dL Hemoglobin A1c (4.5-6.2) % Calcium (8.5-10.1) mg/dL Phosphorus (2.5-4.9) mg/dL Magnesium (1.8-2.4) mg/dL Result Diagrams: 09/22/21 04:00 09/22/21 12:03 Sepsis Event Note - Evaluation Sepsis Screening Result: No Definite Risk - Focused Exam Vital Signs: Vital Signs Temp Pulse Resp BP Pulse Ox 09/22/21 12:00 97.6 F 16 132/66 100 09/22/21 10:00 18 116/63 100 09/22/21 08:00 97.7 F 14 119/68 100 09/22/21 06:00 80 24 H 91/44 L 100 09/22/21 05:00 87 24 H 105/63 99 09/22/21 04:00 97.5 F 98 22 H 99/54 L 99 09/22/21 03:00 84 21 H 90/44 L 99 09/22/21 01:00 88 21 H 99/44 L 99 - Problem List Review Problem List Initiated/Reviewed/Updated: Yes - My Orders Last 24 Hours: My Active Orders 09/21/21 Lunch Consistent Carbohydrate Diet [DIET] 09/21/21 14:18 Blood Glucose Check, Bedside [RC] Q1H Diabetes Education [RC] Click to Edit Notify Provider [RC] PRN Consult to Diabetic Nurse Specialist [CONS] Stat Dextrose 5%-0.45% NaCl [Dextrose 5%-1/2 NS] 1,000 ml IV ASDIRECTED Dextrose 50% in Water 50 ml IVPUSH ONETIME PRN Magnesium Sulfate/Water [Magnesium Sulfate in Water 2 GM/50 ML] 50 ml IV ONETIME Potassium Chloride [KCL in Water 20 MEQ/100 ML] 20 meq Premix Bag 1 bag IV Q2H Potassium Chloride [KCL in Water 20 MEQ/100 ML] 20 meq Premix Bag 1 bag IV Q2H Potassium Chloride [Potassium Chloride Solution] 20 meq PO NOW PRN Potassium Chloride [Potassium Chloride Solution] 40 meq PO NOW PRN Potassium Chloride [Potassium Chloride Solution] 40 meq PO Q2H PRN Sodium Chloride 0.9% [Normal Saline] 2,000 ml IV .CONTINUOUS Sodium Phosphate 60 mmole Sodium Chloride 0.9% [Normal Saline] 250 ml IV ONETIME 09/21/21 14:19 Notify Provider Laboratory Res [RC] ASDIRECTED Notify Provider Laboratory Res [RC] ASDIRECTED 09/21/21 14:20 Notify Provider Laboratory Res [RC] ASDIRECTED 09/21/21 14:26 Resuscitation Status Routine 09/21/21 14:28 Potassium Chloride [KCL in Water 20 MEQ/100 ML] 20 meq Premix Bag 1 bag IV ONETIME 09/21/21 14:30 Insulin Regular in 0.9 % NACL [Myxredlin in NS 100 UNIT/100 ML] 100 ml IV ASDIRECTED Medication Continuation Instructions [OM.PC] ASDIRECTED Medication Discontinuation Instructions [OM.PC] ASDIRECTED 09/21/21 14:36 Acetaminophen [TylenoL] 650 mg PO Q4H PRN Ondansetron [Zofran] 4 mg IV Q4H PRN oxyCODONE 5 mg PO Q4H PRN 09/21/21 14:36 Patient Status [ADT] Routine Ambulate [RC] QID Height and Weight [RC] DAILY Intake and Output [RC] QSHIFT Notify Provider Vital Signs [RC] ASDIRECTED Oxygen Therapy [RC] PRN Up to Chair [RC] QID Vital Signs [RC] Q2H 09/21/21 16:00 Enoxaparin [Lovenox] 40 mg SUBCUT Q24H 09/22/21 10:30 Potassium Phos in 0.9 % NaCl [Potassium Phos in NS 15 MMOL/250 ML] 15 mmol Premix Bag 1 bag IV ONETIME 09/22/21 13:30 Sodium Phosphate 45 mmole Sodium Chloride 0.9% [Normal Saline] 250 ml IV ONETIME 09/22/21 14:30 BASIC METABOLIC PANEL,BMP [CHEM] Q4H MAGNESIUM [CHEM] Q6H PHOSPHORUS [CHEM] Q6H 09/22/21 16:30 POTASSIUM,K [CHEM] Q2H 09/22/21 18:30 BASIC METABOLIC PANEL,BMP [CHEM] Q4H 09/22/21 20:30 MAGNESIUM [CHEM] Q6H PHOSPHORUS [CHEM] Q6H POTASSIUM,K [CHEM] Q2H 09/22/21 22:30 BASIC METABOLIC PANEL,BMP [CHEM] Q4H 09/23/21 00:30 POTASSIUM,K [CHEM] Q2H 09/23/21 02:30 BASIC METABOLIC PANEL,BMP [CHEM] Q4H MAGNESIUM [CHEM] Q6H PHOSPHORUS [CHEM] Q6H POTASSIUM,K [CHEM] Q2H 09/23/21 04:30 POTASSIUM,K [CHEM] Q2H 09/23/21 06:30 BASIC METABOLIC PANEL,BMP [CHEM] Q4H POTASSIUM,K [CHEM] Q2H 09/23/21 08:30 MAGNESIUM [CHEM] Q6H PHOSPHORUS [CHEM] Q6H POTASSIUM,K [CHEM] Q2H 09/23/21 10:30 POTASSIUM,K [CHEM] Q2H - Plan Plan:: ASSESSMENT AND PLAN DIABETIC KETOACIDOSIS-likely as a result of recent COVID-19 infection. Improved from admission with glucose levels into the low 200s and 100s. Persistent keto acidosis although significantly improved from admission -IV fluids and IV insulin per ketoacidosis protocol, continue current protocol until ketoacidosis has resolved -Resume usual insulin when ketoacidosis has resolved -Management of electrolytes per protocol -Every hour glucometers -Every hour vital signs COVID-19 INFECTION-symptoms present for 8 days. Tolerated monoclonal antibody infusion without difficulty -Symptomatic management ACUTE KIDNEY INJURY-resolved MAINTENANCE ISSUES -DVT prophylaxis; enoxaparin 40 mg subcu daily -GI prophylaxis; not indicated -[place] catheter; not indicated -Nutrition; consistent carbohydrate diet -Nicotine dependence; not required CODE STATUS-FULL CODE ADMISSION STATUS-patient will be admitted to inpatient status, expect at least a 2 night hospital stay for evaluation and management of problems as outlined above. At the time of this admission I do not reasonably expected evaluation and management of this problem will require more than a 96 hour hospital stay. DISPOSITION-anticipate discharge to home after the hospital stay. PRIMARY CARE PROVIDER-Dr. Loco
[2021-09-22] MEDS: Insulin Regular in 0.9 % NACL 100 ML IV SCH (12:49)
[2021-09-22] MEDS ORDERED: Sodium Phosphate 45 MMOLE in Sodium Chloride 0.9% 250 ML IV ONE (13:30)
[2021-09-22] MEDS ORDERED: Potassium Chloride 20 MEQ Tab.ER PO ONE ×2 (14:30→17:48)
[2021-09-22] MEDS: Enoxaparin 40 MG/0.4 ML Syringe SUBCUT SCH (16:36)
[2021-09-22] MEDS ORDERED: Insulin Glargine,Human Rec. Analog 100 Units/ML 3 ML Pen SUBCUT SCH (21:00)
[2021-09-23] MEDS: Dextrose 5%-0.45% NaCl 1,000 ML IV PRN ×2 (00:21→06:58)
[2021-09-23] MEDS: Potassium Chloride 20 MEQ in Premix Bag 1 BAG IV PRN ×2 (00:36→06:55)
[2021-09-23] MEDS ORDERED: Potassium Chloride 10% 20 MEQ/15 ML Soln 15 ML UD Cup ONE (05:11)
[2021-09-23] MEDS: Potassium Chloride 10% 20 MEQ/15 ML Soln 15 ML UD Cup PO PRN (05:14)
[2021-09-23] MEDS ORDERED: 50% Dextrose in Water 50 ML Syringe IV PRN (10:57)
[2021-09-23] MEDS ORDERED: Glucose Gel 15 GM in 37.5 GM Tube PO PRN (10:57)
[2021-09-23] MEDS ORDERED: Insulin Lispro 100 Unit/ML 3 ML KwikPen SUBCUT SCH (11:00)
--- NOTE | 2021-09-23 11:23 | PCM.DCSUM1 ---
Discharge Summary - Hospital Course Brief History: Mr. Harp is a 25-year-old gentleman who was admitted through the emergency department with lethargy and weakness secondary to diabetic ketoacidosis and underlying COVID-19 infection. - Discharge Data Discharge Date: 09/23/21 Discharge Disposition: Home, Self-Care 01 Condition: Stable - Referral to Home Health Primary Care Physician: Ravin Loco MD - Discharge Diagnosis/Problem(s) (1) COVID-19 SNOMED Code(s): 242783308 ICD Code: U07.1 - COVID-19 Status: Acute Current Visit: Yes (2) Diabetic ketoacidosis SNOMED Code(s): 308896650, 897748836 ICD Code: E13.10 - OTH DIABETES MELLITUS WITH KETOACIDOSIS WITHOUT COMA Status: Acute Current Visit: Yes Qualifiers: Diabetes mellitus type: type 1 Diabetes mellitus complication detail: without coma Qualified Code(s): E10.10 - Type 1 diabetes mellitus with ketoacidosis without coma (3) Dehydration SNOMED Code(s): 38190344 ICD Code: E86.0 - DEHYDRATION Status: Acute Current Visit: No (4) Diabetes mellitus type 1 SNOMED Code(s): 00571328 ICD Code: E10.9 - TYPE 1 DIABETES MELLITUS WITHOUT COMPLICATIONS Status: Chronic Current Visit: No - Patient Summary/Data Hospital Course: Mr. Harp is a 25-year-old gentleman who was admitted through the emergency department with generalized weakness and nausea secondary to diabetic ketoacidosis and underlying COVID-19 infection. He has had longstanding type 1 diabetes mellitus which he manages with insulin. 8 days ago developed symptoms of nasal congestion and sore throat. Symptoms progressed and he was tested for Covid and found to be positive. Over the last few days he has become progressively more weak and had ongoing difficulty with nausea. He presented to the emergency department this morning and was found to be in diabetic ketoacidosis with marked elevation in glucose level. No beds were available here or for transfer and he was started on IV fluids as well as IV insulin infusion in the emergency department. On admission he was started on diabetic ketoacidosis protocol, for management of IV fluids and IV insulin. Orders were placed for follow-up and management of electrolytes including potassium, magnesium, and phosphorus. Glucose level came under good control within a relatively short period of time. Ketoacidosis was somewhat more slow to respond but by the time of discharge had totally resolved. Because of his Covid positive infection and risk for complications he was given monoclonal antibody while in the hospital. He developed no significant respiratory complications and had no hypoxia during hospitalization. He was he was transitioned back to his usual subcutaneous insulin dosing prior to discharge. He was encouraged to stay 1 more hospital day for further management and adjusting of insulin as well as for a follow-up appointment with the educator senior clinical in the morning. He refused further hospitalization and requested that he be discharged today. Follow-up appointment will be scheduled with his primary care provider within 1 week and an appointment with the educator senior clinical as soon as possible. Activity will be as tolerated and he will remain on a consistent carbohydrate diet. - Patient Instructions Diet: Diabetic Diet Activity: As Tolerated Other/Special Instructions: Schedule follow-up appointment with primary care provider within 1 week. Please schedule appointment with educator senior clinical as soon as possible. - Discharge Plan *PRESCRIPTION DRUG MONITORING PROGRAM REVIEWED*: Not Applicable *COPY OF PRESCRIPTION DRUG MONITORING REPORT IN PATIENT HERBERT: Not Applicable Home Medications: Home Meds Insulin Aspart [NovoLOG] 1 unit SUBCUT ACBED #3 pen 05/14/14 [Rx] Insulin Detemir [Levemir] 50 unit SUBCUT QPM 06/25/18 [History] Referrals: Ravin Loco MD [Primary Care Provider] - - Discharge Summary/Plan Comment DC Time >30 min.: No Total # of Minutes for Discharge Time: 20 - Patient Data Vitals - Most Recent: Last Vital Signs Temp 97.8 F 09/23/21 08:00 Pulse 75 09/23/21 06:00 Resp 14 09/23/21 10:00 BP 112/70 09/23/21 10:00 Pulse Ox 99 09/23/21 10:00 Weight - Most Recent: 239 lb 15.923 oz I&O - Last 24 hours: Intake & Output 09/22/21 09/23/21 09/23/21 22:59 06:59 14:59 Intake Total 2087 2121 Balance 2087 2121 Lab Results - Last 24 hrs: Laboratory Results - last 24 hr 09/22/21 09/22/21 09/22/21 Range/Units 11:55 12:03 12:51 Sodium (140-148) mmol/L Potassium 5.8 H (3.6-5.2) mmol/L Chloride (100-108) mmol/L Carbon Dioxide (21-32) mmol/L Anion Gap (5.0-14.0) mmol/L BUN (7-18) mg/dL Creatinine (0.8-1.3) mg/dL Est Cr Clr Drug Dosing mL/min Estimated GFR (MDRD) (>60) Glucose (74-106) mg/dL POC Glucose 187 H 190 H (74-106) mg/dL Calcium (8.5-10.1) mg/dL Phosphorus (2.5-4.9) mg/dL Magnesium (1.8-2.4) mg/dL 09/22/21 09/22/21 09/22/21 Range/Units 13:52 13:59 14:55 Sodium 138 L (140-148) mmol/L Potassium 3.6 (3.6-5.2) mmol/L Chloride 107 (100-108) mmol/L Carbon Dioxide 19 L (21-32) mmol/L Anion Gap 15.6 H (5.0-14.0) mmol/L BUN 10 (7-18) mg/dL Creatinine 1.1 (0.8-1.3) mg/dL Est Cr Clr Drug Dosing 106.26 mL/min Estimated GFR (MDRD) > 60 (>60) Glucose 186 H (74-106) mg/dL POC Glucose 186 H 181 H (74-106) mg/dL Calcium 7.7 L (8.5-10.1) mg/dL Phosphorus 1.6 L (2.5-4.9) mg/dL Magnesium 2.1 (1.8-2.4) mg/dL 09/22/21 09/22/21 09/22/21 Range/Units 15:57 16:53 17:01 Sodium (140-148) mmol/L Potassium 3.1 L (3.6-5.2) mmol/L Chloride (100-108) mmol/L Carbon Dioxide (21-32) mmol/L Anion Gap (5.0-14.0) mmol/L BUN (7-18) mg/dL Creatinine (0.8-1.3) mg/dL Est Cr Clr Drug Dosing mL/min Estimated GFR (MDRD) (>60) Glucose (74-106) mg/dL POC Glucose 197 H 229 H (74-106) mg/dL Calcium (8.5-10.1) mg/dL Phosphorus (2.5-4.9) mg/dL Magnesium (1.8-2.4) mg/dL 09/22/21 09/22/21 09/22/21 Range/Units 17:01 18:05 19:24 Sodium 137 L (140-148) mmol/L Potassium 3.2 L (3.6-5.2) mmol/L Chloride 108 (100-108) mmol/L Carbon Dioxide 18 L (21-32) mmol/L Anion Gap 14.2 H (5.0-14.0) mmol/L BUN 11 (7-18) mg/dL Creatinine 1.1 (0.8-1.3) mg/dL Est Cr Clr Drug Dosing 106.26 mL/min Estimated GFR (MDRD) > 60 (>60) Glucose 248 H (74-106) mg/dL POC Glucose 247 H 231 H (74-106) mg/dL Calcium 7.3 L (8.5-10.1) mg/dL Phosphorus (2.5-4.9) mg/dL Magnesium (1.8-2.4) mg/dL 09/22/21 09/22/21 09/22/21 Range/Units 19:58 20:02 21:06 Sodium (140-148) mmol/L Potassium 3.4 L (3.6-5.2) mmol/L Chloride (100-108) mmol/L Carbon Dioxide (21-32) mmol/L Anion Gap (5.0-14.0) mmol/L BUN (7-18) mg/dL Creatinine (0.8-1.3) mg/dL Est Cr Clr Drug Dosing mL/min Estimated GFR (MDRD) (>60) Glucose (74-106) mg/dL POC Glucose 205 H 187 H (74-106) mg/dL Calcium (8.5-10.1) mg/dL Phosphorus 1.2 L (2.5-4.9) mg/dL Magnesium 2.1 (1.8-2.4) mg/dL 09/22/21 09/22/21 09/22/21 Range/Units 22:07 22:11 22:57 Sodium 140 (140-148) mmol/L Potassium 4.4 (3.6-5.2) mmol/L Chloride 110 H (100-108) mmol/L Carbon Dioxide 19 L (21-32) mmol/L Anion Gap 15.4 H (5.0-14.0) mmol/L BUN 10 (7-18) mg/dL Creatinine 1.1 (0.8-1.3) mg/dL Est Cr Clr Drug Dosing 106.26 mL/min Estimated GFR (MDRD) > 60 (>60) Glucose 224 H (74-106) mg/dL POC Glucose 224 H 195 H (74-106) mg/dL Calcium 7.5 L (8.5-10.1) mg/dL Phosphorus (2.5-4.9) mg/dL Magnesium (1.8-2.4) mg/dL 09/23/21 09/23/21 09/23/21 Range/Units 00:12 00:17 01:07 Sodium (140-148) mmol/L Potassium 3.6 (3.6-5.2) mmol/L Chloride (100-108) mmol/L Carbon Dioxide (21-32) mmol/L Anion Gap (5.0-14.0) mmol/L BUN (7-18) mg/dL Creatinine (0.8-1.3) mg/dL Est Cr Clr Drug Dosing mL/min Estimated GFR (MDRD) (>60) Glucose (74-106) mg/dL POC Glucose 163 H 169 H (74-106) mg/dL Calcium (8.5-10.1) mg/dL Phosphorus (2.5-4.9) mg/dL Magnesium (1.8-2.4) mg/dL 09/23/21 09/23/21 09/23/21 Range/Units 01:56 02:00 03:12 Sodium 142 (140-148) mmol/L Potassium 4.0 (3.6-5.2) mmol/L Chloride 111 H (100-108) mmol/L Carbon Dioxide 21 (21-32) mmol/L Anion Gap 14.0 (5.0-14.0) mmol/L BUN 9 (7-18) mg/dL Creatinine 1.1 (0.8-1.3) mg/dL Est Cr Clr Drug Dosing 106.26 mL/min Estimated GFR (MDRD) > 60 (>60) Glucose 169 H (74-106) mg/dL POC Glucose 156 H 166 H (74-106) mg/dL Calcium 7.5 L (8.5-10.1) mg/dL Phosphorus 1.0 L (2.5-4.9) mg/dL Magnesium 2.0 (1.8-2.4) mg/dL 09/23/21 09/23/21 09/23/21 Range/Units 04:05 04:09 05:03 Sodium (140-148) mmol/L Potassium 3.6 (3.6-5.2) mmol/L Chloride (100-108) mmol/L Carbon Dioxide (21-32) mmol/L Anion Gap (5.0-14.0) mmol/L BUN (7-18) mg/dL Creatinine (0.8-1.3) mg/dL Est Cr Clr Drug Dosing mL/min Estimated GFR (MDRD) (>60) Glucose (74-106) mg/dL POC Glucose 140 H 156 H (74-106) mg/dL Calcium (8.5-10.1) mg/dL Phosphorus (2.5-4.9) mg/dL Magnesium (1.8-2.4) mg/dL 09/23/21 09/23/21 09/23/21 Range/Units 06:02 06:05 06:53 Sodium 142 (140-148) mmol/L Potassium 3.7 (3.6-5.2) mmol/L Chloride 112 H (100-108) mmol/L Carbon Dioxide 20 L (21-32) mmol/L Anion Gap 13.7 (5.0-14.0) mmol/L BUN 8 (7-18) mg/dL Creatinine 1.0 (0.8-1.3) mg/dL Est Cr Clr Drug Dosing 116.88 mL/min Estimated GFR (MDRD) > 60 (>60) Glucose 183 H (74-106) mg/dL POC Glucose 185 H 161 H (74-106) mg/dL Calcium 7.5 L (8.5-10.1) mg/dL Phosphorus (2.5-4.9) mg/dL Magnesium (1.8-2.4) mg/dL 09/23/21 09/23/21 09/23/21 Range/Units 08:00 08:03 10:06 Sodium (140-148) mmol/L Potassium 3.9 (3.6-5.2) mmol/L Chloride (100-108) mmol/L Carbon Dioxide (21-32) mmol/L Anion Gap (5.0-14.0) mmol/L BUN (7-18) mg/dL Creatinine (0.8-1.3) mg/dL Est Cr Clr Drug Dosing mL/min Estimated GFR (MDRD) (>60) Glucose (74-106) mg/dL POC Glucose 134 H 154 H (74-106) mg/dL Calcium (8.5-10.1) mg/dL Phosphorus 1.1 L (2.5-4.9) mg/dL Magnesium 2.1 (1.8-2.4) mg/dL Med Orders - Current: Current Medications Acetaminophen (Acetaminophen 325 Mg Tab) 650 mg PO Q4H PRN PRN Reason: Pain (Mild 1-3)/fever Dextrose (Glucose Gel 15 Gm In 37.5 Gm Tube) 15 gm PO ONETIME PRN PRN Reason: Hypoglycemia Dextrose/Water (50% Dextrose In Water 50 Ml Syringe) 50 ml IV ONETIME PRN PRN Reason: Hypoglycemia Enoxaparin Sodium (Enoxaparin 40 Mg/0.4 Ml Syringe) 40 mg SUBCUT Q24H [facility] Last Admin: 09/22/21 16:36 Dose: 40 mg Documented by: Potassium Chloride 20 meq/ (Premix) 100 mls @ 50 mls/hr IV ONETIME PRN PRN Reason: SEE COMMENT Last Admin: 09/23/21 06:55 Dose: 50 mls/hr Documented by: Insulin Glargine (Insulin Glargine,Human Rec. Analog 100 Units/Ml 3 Ml Pen) 50 units SUBCUT BEDTIME [facility] Insulin Human Lispro (Insulin Lispro 100 Unit/Ml 3 Ml Kwikpen) 0 unit SUBCUT QIDACANDBED [facility]; Protocol Ondansetron HCl (Ondansetron 4 Mg/2 Ml Sdv) 4 mg IV Q4H PRN PRN Reason: Nausea/Vomiting Oxycodone HCl (Oxycodone 5 Mg Tab) 5 mg PO Q4H PRN PRN Reason: Pain (moderate 4-6) Discontinued Medications Dextrose/Water (50% Dextrose In Water 50 Ml Syringe) 50 ml IVPUSH ONETIME PRN PRN Reason: Blood Glucose Diphenhydramine HCl (Diphenhydramine 50 Mg/Ml Sdv) 50 mg IVPUSH ASDIRECTED PRN PRN Reason: hypersensitivity reaction Stop: 09/21/21 18:00 Epinephrine HCl (Epinephrine 1 Mg/Ml Sdv) 0.3 mg IM ASDIRECTED PRN PRN Reason: hypersensitivity reaction Stop: 09/21/21 18:00 Famotidine (Famotidine 20 Mg/2 Ml Sdv) 20 mg IVPUSH ASDIRECTED PRN PRN Reason: hypersensitivity reaction Stop: 09/21/21 18:00 Hydromorphone HCl (Hydromorphone 0.5 Mg/0.5 Ml Syringe) 0.25 mg IVPUSH ONETIME ONE Stop: 09/21/21 09:23 Last Admin: 09/21/21 09:31 Dose: 0.25 mg Documented by: Sodium Chloride (Normal Saline) 1,000 mls @ 500 mls/hr IV ASDSCIONHEALTHED [facility] Last Admin: 09/21/21 08:07 Dose: 500 mls/hr Documented by: Insulin Regular in 0.9 % NACL (Myxredlin In Ns 100 Unit/100 Ml) 100 unit in 100 mls @ 10.886 mls/hr IV ASDIRECTED [facility] Last Admin: 09/21/21 09:05 Dose: 0.1 units/kg/hr, 10.886 mls/hr Documented by: Sodium Chloride (Normal Saline) 100 mls @ 3 mls/sec IV ASDIRECTED [facility] Stop: 09/21/21 15:00 Last Admin: 09/21/21 10:48 Dose: 3 mls/sec Documented by: Potassium Chloride/Sodium Chloride (Normal Saline With 20 Meq Kcl) 1,000 mls @ 500 mls/hr IV ASDIRECTED [facility] Last Admin: 09/21/21 10:35 Dose: 500 mls/hr Documented by: Sodium Chloride (Normal Saline) 1,000 mls @ 500 mls/hr IV ASDIRECTED [facility] Last Admin: 09/21/21 13:10 Dose: 500 mls/hr Documented by: Sodium Chloride (Normal Saline) 2,000 mls @ 500 mls/hr IV .CONTINUOUS PRN PRN Reason: Blood Glucose Dextrose/Sodium Chloride (Dextrose 5%-1/2 Ns) 1,000 mls @ 150 mls/hr IV ASDIRECTED PRN PRN Reason: Blood Glucose Last Admin: 09/23/21 06:58 Dose: 150 mls/hr Documented by: Potassium Chloride 20 meq/ (Premix) 100 mls @ 50 mls/hr IV Q2H PRN PRN Reason: Hypokalemia Last Admin: 09/23/21 00:36 Dose: 50 mls/hr Documented by: Potassium Chloride 20 meq/ (Premix) 100 mls @ 50 mls/hr IV Q2H PRN PRN Reason: Hypokalemia Magnesium Sulfate (Magnesium Sulfate In Water 2 Gm/50 Ml) 50 mls @ 25 mls/hr IV ONETIME PRN PRN Reason: low magnesium Last Admin: 09/21/21 21:25 Dose: 25 mls/hr Documented by: Sodium Phosphate 60 mmole/ (Sodium Chloride) 270 mls @ 62.5 mls/hr IV ONETIME PRN PRN Reason: Low phophorus Insulin Regular in 0.9 % NACL (Myxredlin In Ns 100 Unit/100 Ml) 100 mls @ 10.886 mls/hr IV ASDIRECTED [facility]; Protocol Last Infusion: 09/23/21 08:04 Dose: 0.01 units/kg/hr, 1.5 mls/hr Documented by: Bamlanivimab 700 mg/Etesevimab 1,400 mg/ Sodium Chloride 160 mls @ 310 mls/hr IV ONETIME ONE Stop: 09/21/21 17:30 Last Admin: 09/21/21 16:52 Dose: 310 mls/hr Documented by: Lidocaine HCl (Xylocaine-Mpf 1%) Confirm Administered Dose 2 mls @ as directed .ROUTE .STK-MED ONE Stop: 09/22/21 01:54 Last Admin: 09/22/21 02:09 Dose: Not Given Documented by: Potassium Phosphate 15 mmol/ (Premix) 250 mls @ 84 mls/hr IV ONETIME ONE Stop: 09/22/21 13:28 Last Admin: 09/22/21 10:17 Dose: 84 mls/hr Documented by: Sodium Phosphate 45 mmole/ (Sodium Chloride) 265 mls @ 65 mls/hr IV ONETIME ONE Stop: 09/22/21 17:34 Last Admin: 09/22/21 12:48 Dose: 65 mls/hr Documented by: Insulin Glargine (Insulin Glargine,Human Rec. Analog 100 Units/Ml 3 Ml Pen) 50 units SUBCUT BEDTIME [facility] Last Admin: 09/22/21 21:10 Dose: 50 units Documented by: Iopamidol (Iopamidol 755 Mg/Ml 100 Ml Bottle) 100 ml IV . DIRECTED JOSEF Stop: 09/21/21 15:00 Last Admin: 09/21/21 10:48 Dose: 100 ml Documented by: Ketorolac Tromethamine (Ketorolac 30 Mg/Ml Sdv) 30 mg IVPUSH ONETIME ONE Stop: 09/21/21 09:23 Last Admin: 09/21/21 09:30 Dose: 30 mg Documented by: Lidocaine HCl (Lidocaine 1% 5 Ml Sdv) 2 ml INJECT ONETIME ONE Stop: 09/22/21 01:54 Last Admin: 09/22/21 02:09 Dose: 2 ml Documented by: Lidocaine HCl (Lidocaine 1% 5 Ml Sdv) 2 ml INJECT ONETIME ONE Stop: 09/22/21 20:58 Last Admin: 09/22/21 21:10 Dose: 2 ml Documented by: Lidocaine HCl (Lidocaine 1% 5 Ml Sdv) Confirm Administered Dose 5 ml .ROUTE .STK-MED ONE Stop: 09/22/21 21:00 Last Admin: 09/22/21 22:11 Dose: Not Given Documented by: Lidocaine HCl (Lidocaine 1% 5 Ml Sdv) 2 ml INJECT ONETIME ONE Stop: 09/23/21 06:47 Last Admin: 09/23/21 06:56 Dose: 2 ml Documented by: Lidocaine HCl (Lidocaine 1% 5 Ml Sdv) Confirm Administered Dose 5 ml .ROUTE .STK-MED ONE Stop: 09/23/21 06:48 Last Admin: 09/23/21 06:56 Dose: Not Given Documented by: Methylprednisolone Sodium Succinate (Methylprednisolone Sodium Succinate 125 Mg/2 Ml Sdv) 125 mg IVPUSH ASDIRECTED PRN PRN Reason: hypersensitivity reaction Stop: 09/21/21 18:00 Metoclopramide HCl (Metoclopramide 10 Mg/2 Ml Sdv) 5 mg IVPUSH ONETIME ONE Stop: 09/21/21 08:27 Last Admin: 09/21/21 09:06 Dose: 5 mg Documented by: Ondansetron HCl (Ondansetron 4 Mg/2 Ml Sdv) 4 mg IVPUSH ONETIME ONE Stop: 09/21/21 06:37 Last Admin: 09/21/21 08:07 Dose: 4 mg Documented by: Potassium Chloride (Potassium Chloride 10% 20 Meq/15 Ml Soln 15 Ml Ud Cup) 20 meq PO NOW PRN PRN Reason: Hypokalemia Last Admin: 09/23/21 05:14 Dose: 20 meq Documented by: Potassium Chloride (Potassium Chloride 10% 20 Meq/15 Ml Soln 15 Ml Ud Cup) 40 meq PO NOW PRN PRN Reason: Hypokalemia Last Admin: 09/22/21 21:10 Dose: 40 meq Documented by: Potassium Chloride (Potassium Chloride 10% 20 Meq/15 Ml Soln 15 Ml Ud Cup) 40 meq PO Q2H PRN PRN Reason: Hypokalemia Potassium Chloride (Potassium Chloride 20 Meq Tab.Er) 20 meq PO ONETIME ONE Stop: 09/22/21 14:31 Last Admin: 09/22/21 14:54 Dose: 20 meq Documented by: Potassium Chloride (Potassium Chloride 20 Meq Tab.Er) 40 meq PO ONETIME ONE Stop: 09/22/21 17:49 Last Admin: 09/22/21 18:06 Dose: 40 meq Documented by: Potassium Chloride (Potassium Chloride 10% 20 Meq/15 Ml Soln 15 Ml Ud Cup) Confirm Administered Dose 20 meq .ROUTE .STK-MED ONE Stop: 09/23/21 05:12 Last Admin: 09/23/21 06:09 Dose: Not Given Documented by: Sodium Chloride (Sodium Chloride 0.9% 10 Ml Syringe) 10 ml FLUSH ASDIRECTED PRN PRN Reason: Keep Vein Open Last Admin: 09/21/21 10:48 Dose: 10 ml Documented by: Sodium Chloride (Sodium Chloride 0.9% 10 Ml Sdv) 10 ml FLUSH ONETIME ONE Stop: 09/21/21 10:16 Last Admin: 09/21/21 10:19 Dose: 10 ml Documented by: Sodium Chloride (Sodium Chloride 0.9% 10 Ml Syringe) 30 ml FLUSH ONETIME ONE Stop: 09/21/21 17:31 Last Admin: 09/21/21 18:07 Dose: 30 ml Documented by: - Exam General: Reports: Alert, Oriented, Cooperative, Mild Distress Lungs: Reports: Clear to Auscultation, Normal Respiratory Effort Cardiovascular: Reports: Regular Rate, Regular Rhythm, No Murmurs GI/Abdominal Exam: Soft, Non-Tender, No Organomegaly, No Distention Extremities: Non-Tender, No Pedal Edema
[2021-09-23] MEDS ORDERED: Insulin Glargine,Human Rec. Analog 100 Units/ML 3 ML Pen SUBCUT SCH (21:00)
== END 2021-09-23 12:29 | disposition home or self-care (01) | DRG 177 ==
LOC: JP.ED 06:21 → JP.ICU 14:35
PROVIDERS: ADMIT Hospitalist; ATTEND Hospitalist
PROC: XW033F6 Introduction of Bamlanivimab Monoclonal Antibody into Peripheral Vein, Percutaneous Approach, New Technology Group 6 (ICD-10-PCS; principal; 2021-09-21)
PROC: 8E0ZXY6 Isolation (ICD-10-PCS; 2021-09-21)
DX: U07.1 COVID-19 (principal); E10.10 Type 1 diabetes mellitus with ketoacidosis without coma; N17.9 Acute kidney failure, unspecified; E86.0 Dehydration; H54.7 Unspecified visual loss; Z23 Encounter for immunization
CPT/HCPCS: 36415; 71045; 71275; 80048; 80053; 81003; 82009; 82728; 82800; 82947; 83036; 83605; 83615; 83735; 84100; 84132; 84484; 85025; 85379; 86140; 93005; 96374; 96375; 99285-25; A9270-GY; J1170; J1650; J1815; J1815-GY; J1885; J2405; J2765; J3475; J3480; J7030; J7042; J7050; Q0245; Q9967

== ENCOUNTER 2021-10-08 15:53 | Inpatient (IN) | payer OTHER ==
[2021-10-08] MEDS ORDERED: Lactated Ringers 1,000 ML IV ONE (17:09)
[2021-10-08] MEDS ORDERED: Ondansetron 4 MG/2 ML SDV IVPUSH ONE (17:10)
--- NOTE | 2021-10-08 17:16 | EDM.PDOC ---
ED HPI GENERAL MEDICAL PROBLEM - General Chief Complaint: Diabetic Complaint Stated Complaint: HIGH BLOOD SUGARS Time Seen by Provider: 10/08/21 16:55 Source of Information: Reports: Patient, Old Records, RN History Limitations: Reports: No Limitations - History of Present Illness INITIAL COMMENTS - FREE TEXT/NARRATIVE: 26 yo male with Type 1 DM presents with fatigue and high BS. He did have some nausea and vomiting earlier. He has not had a fever. His BS was high before coming to the ER. He does not check his BS regularly, mainly just dosing insulin based on what he eats. Has not eaten or taken any insulin today. Does have polyuria. [place] fairly good this AM when he first woke up. Onset: Gradual Onset Date: 10/08/21 Duration: Hour(s):, Getting Worse Location: Reports: Generalized Quality: Reports: Other (pain not described) Severity: Moderate (fatigue) Improves with: Reports: None Worsens with: Reports: Other (time) Context: Reports: Other (See HPI) Associated Symptoms: Reports: Loss of Appetite, Malaise, Nausea/Vomiting. Denies: Fever/Chills Treatments AFTER SCHOOL PROGRAM COORDINATOR: Reports: Other (see below) (none) - Related Data Allergies Allergy/AdvReac Type Severity Reaction Status Date / Time No Known Allergies Allergy Verified 10/08/21 16:57 Home Meds: Home Meds Insulin Detemir [Levemir] 52 unit SUBCUT QPM 06/25/18 [History] Insulin Aspart [NovoLOG] 2 unit SUBCUT ACBED 10/08/21 [History] Past Medical History - Past Health History Medical/Surgical History: Denies Medical/Surgical History HEENT History: Reports: Impaired Vision Endocrine/Metabolic History: Reports: Diabetes, Type I - Infectious Disease History Infectious Disease History: Reports: Chicken Pox, Novel Coronavirus Social & Family History - Tobacco Use Tobacco Use Status *Q: Never Tobacco User - Caffeine Use Caffeine Use: Reports: Soda Caffeine Use Comment: occasional - Recreational Drug Use Recreational Drug Use: No ED ROS GENERAL - Review of Systems Review Of Systems: See Below Constitutional: Reports: Malaise, Fatigue, Decreased Appetite. Denies: Fever HEENT: Reports: No Symptoms Respiratory: Reports: No Symptoms Cardiovascular: Reports: No Symptoms Endocrine: Reports: Fatigue, High Glucose, Polyuria GI/Abdominal: Reports: Nausea, Vomiting (now abated). Denies: Diarrhea, Hematemesis : Reports: Frequency Musculoskeletal: Reports: No Symptoms Skin: Reports: No Symptoms Neurological: Reports: No Symptoms ED EXAM GENERAL NO PERIP PULSE - Physical Exam Exam: See Below Exam Limited By: No Limitations General Appearance: Alert, WD/WN, No Apparent Distress Eye Exam: Bilateral Eye: Normal Inspection Ears: Normal External Exam, Normal Canal, Hearing Grossly Normal Nose: Normal Inspection, No Blood Throat/Mouth: Normal Inspection, Normal Lips, Normal Oropharynx, Normal Voice, No Airway Compromise Head: Atraumatic, Normocephalic Neck: Normal Inspection Respiratory/Chest: No Respiratory Distress, Lungs Clear, Normal Breath Sounds, No Accessory Muscle Use Cardiovascular: Regular Rate, Rhythm, No Edema, Tachycardia GI/Abdominal: Soft, Non-Tender. No: Distended Back Exam: Normal Inspection Extremities: Normal Inspection, Normal Range of Motion, Non-Tender, No Pedal Edema Neurological: Alert, Oriented, CN II-XII Intact, Normal Cognition, No Motor/Sensory Deficits Psychiatric: Normal Affect, Normal Mood Skin Exam: Warm, Dry, Intact, Normal Color, No Rash Course - Vital Signs Text/Narrative:: Dr. Her called @ 1556h Last Recorded V/S: Last Vital Signs Temp 36.2 C 10/08/21 16:55 Pulse 111 H 10/08/21 16:55 Resp 16 10/08/21 16:55 BP 130/67 10/08/21 16:55 Pulse Ox 96 10/08/21 16:55 - Orders/Labs/Meds Orders: Active Orders 24 hr Category Date Time Status GLUCOSE POC LAB TO COLLECT JPM [POC] Stat Lab 10/08/21 20:00 Ordered UA W/MICROSCOPIC [URIN] Stat Lab 10/08/21 17:10 Ordered Insulin NPH/Insulin Reg,Human [HumuLIN 70-30] Med 10/08/21 17:30 Active 20 units SUBCUT BIDAC Insulin Regular in 0.9 % NACL [Myxredlin in NS 100 UNIT Med 10/08/21 18:00 Active /100 ML] 100 unit in 100 ml IV ASDIRECTED Lactated Ringers [Ringers, Lactated] 1,000 ml Med 10/08/21 17:09 Active IV BOLUS Medication Orders Lactated Ringer's (Ringers, Lactated) 1,000 mls @ 1,000 mls/hr IV BOLUS ONE Stop: 10/08/21 18:08 Last Admin: 10/08/21 17:51 Dose: 1,000 mls/hr Documented by: SYLVIA Insulin Regular in 0.9 % NACL (Myxredlin In Ns 100 Unit/100 Ml) 100 unit in 100 mls @ 10.569 mls/hr IV ASDIRECTED [facility] Insulin Human Isoph/Insulin Regular (Insulin Nph/Insulin Regular,Human 70-30 100 Units/Ml 10 Ml Vial) 20 units SUBCUT BIDAC JOSEF Last Admin: 10/08/21 17:43 Dose: 20 unit Documented by: SYLVIA Cosigned by: SUBHA Labs: Laboratory Tests 10/08/21 10/08/21 10/08/21 Range/Units 17:19 17:19 17:19 WBC 19.1 H (4.5-11.0) K/uL RBC 5.66 (4.30-5.90) M/uL Hgb 16.6 H (12.0-15.0) g/dL Hct 50.4 (40.0-54.0) % MCV 89 (80-98) fL MCH 29 (27-31) pg MCHC 33 (32-36) % Plt Count 404 H (150-400) K/uL VBG pH 7.119 L (7.350-7.450) Sodium 129 L (140-148) mmol/L Potassium 6.5 H* (3.6-5.2) mmol/L Chloride 92 L (100-108) mmol/L Carbon Dioxide 9 L (21-32) mmol/L Anion Gap 34.5 H (5.0-14.0) mmol/L BUN 27 H D (7-18) mg/dL Creatinine 1.6 H D (0.8-1.3) mg/dL Est Cr Clr Drug Dosing 72.24 mL/min Estimated GFR (MDRD) 53 L (>60) Glucose 702 H* (74-106) mg/dL Calcium 9.6 D (8.5-10.1) mg/dL Meds: Medications Generic Name Dose Route Start Last Admin Trade Name Freq PRN Reason Stop Dose Admin Lactated Ringer's 1,000 mls @ 1,000 mls/hr 10/08/21 17:09 10/08/21 17:51 Ringers, Lactated IV 10/08/21 18:08 1,000 mls/hr BOLUS ONE Administration Insulin Regular in 0.9 % NACL 100 unit in 100 mls @ 10.569 mls/hr 10/08/21 18:00 Myxredlin In Ns 100 Unit/100 Ml IV ASDIRECTED JOSEF 0.1 UNITS/KG/HR Insulin Human Isoph/Insulin Regular 20 units 10/08/21 17:30 10/08/21 17:43 Insulin Nph/Insulin Regular,Human 70-30 100 Units/Ml 10 Ml Vial SUBCUT 20 unit BIDAC JOSEF Administration Discontinued Medications Generic Name Dose Route Start Last Admin Trade Name Carloz PRN Reason Stop Dose Admin Ondansetron HCl 4 mg 10/08/21 17:10 10/08/21 17:50 Ondansetron 4 Mg/2 Ml Sdv IVPUSH 10/08/21 17:11 4 mg ONETIME ONE Administration Departure - Departure Time of Disposition: 18:30 Disposition: Admitted As Inpatient 66 Condition: Poor Clinical Impression: Elevated glucose level, Mild dehydration DKA (diabetic ketoacidosis) Qualifiers: Diabetes mellitus type: type 1 Diabetes mellitus complication detail: without coma Qualified Code(s): E10.10 - Type 1 diabetes mellitus with ketoacidosis without coma - Discharge Information Referrals: Ravin Loco MD [Primary Care Provider] - Forms: ED Department Discharge Sepsis Event Note (ED) - Evaluation Sepsis Screening Result: No Definite Risk - Focused Exam Vital Signs: Vital Signs Temp Pulse Resp BP Pulse Ox 10/08/21 16:55 36.2 C 111 H 16 130/67 96 - My Orders Last 24 Hours: My Active Orders 10/08/21 17:09 Lactated Ringers [Ringers, Lactated] 1,000 ml IV BOLUS 10/08/21 17:10 UA W/MICROSCOPIC [URIN] Stat 10/08/21 17:30 Insulin NPH/Insulin Reg,Human [HumuLIN 70-30] 20 units SUBCUT BIDAC 10/08/21 18:00 Insulin Regular in 0.9 % NACL [Myxredlin in NS 100 UNIT/100 ML] 100 unit in 100 ml IV ASDIRECTED 10/08/21 20:00 GLUCOSE POC LAB TO COLLECT JPM [POC] Stat - Assessment/Plan Last 24 Hours: My Active Orders 10/08/21 17:09 Lactated Ringers [Ringers, Lactated] 1,000 ml IV BOLUS 10/08/21 17:10 UA W/MICROSCOPIC [URIN] Stat 10/08/21 17:30 Insulin NPH/Insulin Reg,Human [HumuLIN 70-30] 20 units SUBCUT BIDAC 10/08/21 18:00 Insulin Regular in 0.9 % NACL [Myxredlin in NS 100 UNIT/100 ML] 100 unit in 100 ml IV ASDIRECTED 10/08/21 20:00 GLUCOSE POC LAB TO COLLECT JPM [POC] Stat
[2021-10-08] MEDS ORDERED: Insulin NPH/Insulin Regular,Human 70-30 100 Units/ML 10 ML Vial SUBCUT SCH ×2 (17:30)
--- NOTE | 2021-10-08 18:42 | PCM.HP.2 ---
H&P History of Present Illness - General Date of Service: 10/08/21 Admit Problem/Dx: Admission Diagnosis/Problem Admission Diagnosis/Problem Diabetic ketoacidosis Source of Information: Patient, Provider History Limitations: Reports: No Limitations - History of Present Illness Initial Comments - Free Text/Narative: CC: I didn't feel so hot HPI: Adam presents to the emergency room today with nausea, vomiting fatigue and hyperglycemia. He reports that he felt well yesterday. When he woke up this morning he was tired and slightly nauseated. He did not have much of an appetite. He took a nap and when he woke up later in the day he vomited twice. He has had nausea since then. His blood sugar was quite high so he thought he better come in for evaluation. He has not been checking blood sugars regularly. He does report that he has been fairly consistent with taking 2 units of insulin per carbohydrate. He reports he has been fairly consistent with his long-acting insulin at bedtime. He has not been consistent with checking blood sugars before or after meals. No fevers or chills. No cough, shortness of breath or sore throat. No abdominal pain, nausea or diarrhea. He feels that he recovered from his Covid a couple weeks ago. He thinks that he is in DKA because he has not been checking blood sugars or taking care of himself as well as he should have been. He has had polyuria and polydipsia. Work-up in the emergency room suggested DKA with a blood sugar more than 700 and significant acidosis. He has acute kidney injury and hyperkalemia. He will be admitted for further management. - Related Data Allergies/Adverse Reactions: Allergies Allergy/AdvReac Type Severity Reaction Status Date / Time No Known Allergies Allergy Verified 10/08/21 16:57 Home Medications: Home Meds Insulin Detemir [Levemir] 52 unit SUBCUT QPM 06/25/18 [History] Insulin Aspart [NovoLOG] 2 unit SUBCUT ACBED 10/08/21 [History] Past Medical History - Past Health History Medical/Surgical History: Denies Medical/Surgical History HEENT History: Reports: Impaired Vision Endocrine/Metabolic History: Reports: Diabetes, Type I - Infectious Disease History Infectious Disease History: Reports: Chicken Pox, Novel Coronavirus Social & Family History - Family History Cardiac: Denies: CAD - Tobacco Use Tobacco Use Status *Q: Never Tobacco User - Caffeine Use Caffeine Use: Reports: Soda Caffeine Use Comment: occasional - Alcohol Use Alcohol Use History: No - Recreational Drug Use Recreational Drug Use: No H&P Review of Systems - Review of Systems: Review Of Systems: See Below Free Text/Narrative: A complete 12 point review of systems was obtained. Pertinent positives and negatives are noted in the history of present illness. All other systems were reviewed and were negative except as noted. Exam - Exam Exam: See Below - Vital Signs Vital Signs: Last Vital Signs Temp 36.2 C 10/08/21 16:55 Pulse 114 H 10/08/21 17:59 Resp 16 10/08/21 17:59 BP 107/54 L 10/08/21 17:59 Pulse Ox 96 10/08/21 17:59 Weight: 105.687 kg - Exam Quality Assessment: No: Supplemental Oxygen General: Alert, Oriented, Cooperative. No: Mild Distress HEENT: Conjunctiva Clear. No: Mucosa Moist & [place] (Dry), Scleral Icterus Neck: Supple, Trachea Midline Lungs: Clear to Auscultation, Normal Respiratory Effort Cardiovascular: Regular Rhythm, Tachycardia. No: Systolic Murmur GI/Abdominal Exam: Normal Bowel Sounds, Soft, Non-Tender, No Distention Extremities: No Pedal Edema. No: Increased Warmth Peripheral Pulses: 2+: Dorsalis Pedis (L), Dorsalis Pedis (R) Skin: Warm, Dry Neuro Extensive - Mental Status: Alert, Oriented x3, Nl Response to Commands Neuro Extensive - Motor, Sensory, Reflexes: No: Dysarthria, Abnormal Motor, Tremor Psychiatric: Alert, Normal Affect - Patient Data Lab Results Last 24 hrs: Laboratory Results - last 24 hr 10/08/21 10/08/21 10/08/21 Range/Units 17:19 17:19 17:19 WBC 19.1 H (4.5-11.0) K/uL RBC 5.66 (4.30-5.90) M/uL Hgb 16.6 H (12.0-15.0) g/dL Hct 50.4 (40.0-54.0) % MCV 89 (80-98) fL MCH 29 (27-31) pg MCHC 33 (32-36) % Plt Count 404 H (150-400) K/uL VBG pH 7.119 L (7.350-7.450) Sodium 129 L (140-148) mmol/L Potassium 6.5 H* (3.6-5.2) mmol/L Chloride 92 L (100-108) mmol/L Carbon Dioxide 9 L (21-32) mmol/L Anion Gap 34.5 H (5.0-14.0) mmol/L BUN 27 H D (7-18) mg/dL Creatinine 1.6 H D (0.8-1.3) mg/dL Est Cr Clr Drug Dosing 72.24 mL/min Estimated GFR (MDRD) 53 L (>60) Glucose 702 H* (74-106) mg/dL Calcium 9.6 D (8.5-10.1) mg/dL Result Diagrams: 10/08/21 17:19 10/08/21 17:19 Sepsis Event Note - Evaluation Sepsis Screening Result: No Definite Risk - Focused Exam Vital Signs: Vital Signs Temp Pulse Resp BP Pulse Ox 10/08/21 17:59 114 H 16 107/54 L 96 10/08/21 16:55 36.2 C 111 H 16 130/67 96 *Q Meaningful Use (ADM) - VTE Risk Assess *Q Each Risk Factor Represents 1 Point: None Total Score 1 Point Risk Factors: 0 Each Risk Factor Represents 2 Points: None Total Score 2 Point Risk Factors: 0 Each Risk Factor Represents 3 Points: None Total Score 3 Point Risk Factors: 0 Each Risk Factor Represents 5 Points: None Total Score 5 Point Risk Factors: 0 Venous Thromboembolism Risk Factor Score *Q: 0 - Problem List (1) Diabetic ketoacidosis SNOMED Code(s): 744646799, 677764441 ICD Code: E13.10 - OTH DIABETES MELLITUS WITH KETOACIDOSIS WITHOUT COMA Status: Acute Current Visit: Yes Qualifiers: Diabetes mellitus type: type 1 Diabetes mellitus complication detail: without coma Qualified Code(s): E10.10 - Type 1 diabetes mellitus with ketoacidosis without coma (2) Diabetes mellitus type 1 SNOMED Code(s): 89310272 ICD Code: E10.9 - TYPE 1 DIABETES MELLITUS WITHOUT COMPLICATIONS Status: Chronic Current Visit: No (3) Acute kidney injury SNOMED Code(s): 81368148, 10412229 ICD Code: N17.9 - ACUTE KIDNEY FAILURE, UNSPECIFIED Status: Acute Current Visit: Yes (4) Hyperkalemia SNOMED Code(s): 82550236 ICD Code: E87.5 - HYPERKALEMIA Status: Acute Current Visit: Yes Problem List Initiated/Reviewed/Updated: Yes Orders Last 24hrs: Active Orders 24 hr Category Date Time Status Patient Status Manage Transfer [TRANSFER] Routine ADT 10/08/21 18:32 Ordered Blood Glucose Check, Bedside [RC] Q1H Care 10/08/21 18:31 Active Communication Order [RC] ASDIRECTED Care 10/08/21 18:31 Active Diabetes Education [RC] Click to Edit Care 10/08/21 18:31 Active Notify Provider [RC] PRN Care 10/08/21 18:31 Active GLUCOSE POC LAB TO COLLECT JPM [POC] Stat Lab 10/08/21 20:00 Ordered UA W/MICROSCOPIC [URIN] Stat Lab 10/08/21 17:10 Ordered Insulin Regular in 0.9 % NACL [Myxredlin in NS 100 UNIT Med 10/08/21 18:45 Active /100 ML] 100 ml IV ASDIRECTED Sodium Chloride 0.9% [Normal Saline] 1,000 ml Med 10/08/21 18:45 Active IV ASDIRECTED Resuscitation Status Routine Resus Stat 10/08/21 18:33 Ordered Medication Orders Insulin Regular in 0.9 % NACL (Myxredlin In Ns 100 Unit/100 Ml) 100 mls @ 10.569 mls/hr IV ASDIRECTED JOSEF; Protocol Sodium Chloride (Normal Saline) 1,000 mls @ 125 mls/hr IV ASDIRECTED JOSEF Assessment/Plan Comment:: ASSESSMENT AND PLAN - DKA-longstanding history of type 1 diabetes. Patient has not been compliant with regular blood sugar checks. He does report taking insulin but has not been checking sugars. No other obvious trigger. Significant hyperglycemia as well as acidosis. -Insulin drip per protocol -Aggressive IV fluids -Accu-Cheks every hour -BMP every 4 hours -Check magnesium -Transition to subcutaneous insulin once his anion gap normalizes -Diabetes education tomorrow Hyperkalemia-secondary to DKA and hyperglycemia. -Aggressive IV fluids -Recheck in 4 hours Acute kidney injury-secondary to DKA. -Aggressive IV fluids and recheck tomorrow Maintenance issues - -DVT prophylaxis-mechanical -GI prophylaxis-not indicated -Nutrition-clear liquids tonight -[place] catheter-not indicated CODE STATUS -full code Admission justification -this patient will be admitted for inpatient services and is medically appropriate meeting medical necessity for inpatient admission as outlined in my documentation. I reasonably expect the patient will require inpatient services that span a period time over 2 midnights. I reasonably expect this patient to be discharged or transferred within 96 hours after admission to the [facility]. Disposition -I anticipate discharge home after the hospital stay Primary care physician -Dr. Ravin Her M.D. - Mortality Measure Prognosis:: Good
[2021-10-08] MEDS ORDERED: Insulin Regular in 0.9 % NACL 100 ML IV SCH (18:45)
[2021-10-08] MEDS: Sodium Chloride 0.9% 1,000 ML IV SCH (18:58)
[2021-10-08] MEDS ORDERED: Melatonin 3 MG Tab PO PRN (19:45)
[2021-10-08] MEDS ORDERED: Magnesium Hydroxide 400 MG/5 ML Susp 30 ML Cup PO PRN (19:45)
[2021-10-08] MEDS ORDERED: Ondansetron 4 MG/2 ML SDV IV PRN (19:45)
[2021-10-08] MEDS ORDERED: LORazepam 2 MG/ML SDV IVPUSH PRN (19:45)
[2021-10-08] MEDS ORDERED: Acetaminophen 325 MG Tab PO PRN (19:45)
[2021-10-08] MEDS ORDERED: Ondansetron 4 MG Tab.DIS PO PRN (19:45)
[2021-10-09] MEDS: Sodium Chloride 0.9% 1,000 ML IV SCH (03:06)
[2021-10-09] MEDS ORDERED: Dextrose 5%-0.9% NaCl 1,000 ML IV SCH (05:15)
[2021-10-09] MEDS ORDERED: Glucagon,Human Recombinant 1 MG Vial IM PRN (09:23)
[2021-10-09] MEDS ORDERED: 50% Dextrose in Water 50 ML Syringe IVPUSH PRN (09:23)
[2021-10-09] MEDS ORDERED: Insulin Glargine,Human Rec. Analog 100 Units/ML 3 ML Pen SUBCUT ONE (10:00)
[2021-10-09] MEDS ORDERED: Insulin Lispro 100 Unit/ML 3 ML KwikPen SUBCUT SCH ×2 (11:00→12:00)
--- NOTE | 2021-10-09 15:10 | PCM.DCSUM1 ---
Discharge Summary - Hospital Course Brief History: 26-year-old male with history of type 1 diabetes mellitus who presented with nausea and vomiting as well as fatigue. He was admitted for management of diabetic ketoacidosis, acute kidney injury and hyperkalemia. Diagnosis: Stroke: No - Discharge Data Discharge Date: 10/09/21 Discharge Disposition: Home, Self-Care 01 Condition: Good - Referral to Home Health Primary Care Physician: Ravin Loco MD - Discharge Diagnosis/Problem(s) (1) Diabetic ketoacidosis SNOMED Code(s): 880725521, 614209192 ICD Code: E13.10 - OTH DIABETES MELLITUS WITH KETOACIDOSIS WITHOUT COMA Status: Acute Current Visit: Yes Qualifiers: Diabetes mellitus type: type 1 Diabetes mellitus complication detail: without coma Qualified Code(s): E10.10 - Type 1 diabetes mellitus with ketoacidosis without coma (2) Diabetes mellitus type 1 SNOMED Code(s): 13549381 ICD Code: E10.9 - TYPE 1 DIABETES MELLITUS WITHOUT COMPLICATIONS Status: Chronic Current Visit: No (3) Acute kidney injury SNOMED Code(s): 74693793, 75924462 ICD Code: N17.9 - ACUTE KIDNEY FAILURE, UNSPECIFIED Status: Acute Current Visit: Yes (4) Hyperkalemia SNOMED Code(s): 74875486 ICD Code: E87.5 - HYPERKALEMIA Status: Acute Current Visit: Yes - Patient Summary/Data Hospital Course: Adam presented to the emergency room with abdominal pain, nausea, weakness and fatigue. Work-up in the emergency room revealed significant hyperglycemia with diabetic ketoacidosis. He had an elevated anion gap metabolic acidosis, hyperkalemia and acute kidney injury. He did receive IV insulin in the emergency room. He was admitted to the intensive care unit for further management. He was managed with a low intensity insulin drip overnight. He received IV fluids overnight. By the morning after admission his blood sugar had improved but his anion gap remained elevated. We started dextrose containing IV fluids and continue the insulin drip. By 11:00 in the morning his anion gap had normalized. Blood sugars remained well controlled. The insulin drip was discontinued and subcutaneous insulin was started. He has tolerated a regular diet. Blood sugars have remained well controlled since the transition. He feels well enough to go home and is not interested in going home at this time. His kidney function has essentially returned to normal. His hyperkalemia has resolved. Nausea and vomiting have resolved. I believe he is stable and safe for discharge. I suspect that the episode was caused by suboptimal monitoring and treatment of his diabetes at home. He does not check his blood sugars regularly. He does report compliance with taking his insulin based on carbohydrates as well as his long-acting insulin. He has early follow-up scheduled with primary care. - Patient Instructions Diet: Diabetic Diet Activity: As Tolerated Driving: May Drive Today Other/Special Instructions: 1. You were in the hospital for management of diabetic ketoacidosis. I suspect that this was caused by suboptimal control of your blood sugars at home. Your condition has improved quickly with IV insulin and IV fluids provided in the hospital. I would strongly encourage you to continue to take your insulins including both the short acting and long-acting as prescribed. I would encourage you to check your blood sugars with your meals and at bedtime to ensure that you are dosing your insulin properly. Suboptimal control of your diabetes now can cause problems down the road including increased risk for heart disease, stroke, nerve damage and kidney damage. - Discharge Plan *PRESCRIPTION DRUG MONITORING PROGRAM REVIEWED*: Not Applicable *COPY OF PRESCRIPTION DRUG MONITORING REPORT IN PATIENT HERBERT: Not Applicable Home Medications: Home Meds Insulin Detemir [Levemir] 52 unit SUBCUT QPM 06/25/18 [History] Insulin Aspart [NovoLOG] 2 unit SUBCUT ACBED 10/08/21 [History] Oxygen Therapy Mode: Room Air Patient Handouts: Preventing Diabetic Ketoacidosis Referrals: Ravin Loco MD [Primary Care Provider] - 10/15/21 1:30 pm (Please arrive 15 minutes early to register for your appointment.) - Discharge Summary/Plan Comment DC Time >30 min.: No Total # of Minutes for Discharge Time: 25 - Patient Data Vitals - Most Recent: Last Vital Signs Temp 36.6 C 10/09/21 12:00 Pulse 95 10/09/21 06:00 Resp 12 10/09/21 14:00 BP 100/49 L 10/09/21 14:00 Pulse Ox 98 10/09/21 14:00 Weight - Most Recent: 105.233 kg I&O - Last 24 hours: Intake & Output 10/09/21 10/09/21 10/09/21 06:59 14:59 22:59 Intake Total 1616 Balance 1616 Lab Results - Last 24 hrs: Laboratory Results - last 24 hr 10/08/21 10/08/21 10/08/21 Range/Units 17:19 17:19 17:19 WBC 19.1 H (4.5-11.0) K/uL RBC 5.66 (4.30-5.90) M/uL Hgb 16.6 H (12.0-15.0) g/dL Hct 50.4 (40.0-54.0) % MCV 89 (80-98) fL MCH 29 (27-31) pg MCHC 33 (32-36) % Plt Count 404 H (150-400) K/uL VBG pH 7.119 L (7.350-7.450) Sodium 129 L (140-148) mmol/L Potassium 6.5 H* (3.6-5.2) mmol/L Chloride 92 L (100-108) mmol/L Carbon Dioxide 9 L (21-32) mmol/L Anion Gap 34.5 H (5.0-14.0) mmol/L BUN 27 H D (7-18) mg/dL Creatinine 1.6 H D (0.8-1.3) mg/dL Est Cr Clr Drug Dosing 72.24 mL/min Estimated GFR (MDRD) 53 L (>60) Glucose 702 H* (74-106) mg/dL POC Glucose (74-106) MG/DL Calcium 9.6 D (8.5-10.1) mg/dL Magnesium (1.8-2.4) mg/dL Urine Color (YELLOW) Urine Appearance (CLEAR) Urine pH (5.0-8.0) Ur Specific [place] (1.008-1.030) Urine Protein (NEGATIVE) mg/dL Urine Glucose (UA) (NEGATIVE) mg/dL Urine Ketones (NEGATIVE) mg/dL Urine Occult Blood (NEGATIVE) Urine Nitrite (NEGATIVE) Urine Bilirubin (NEGATIVE) Urine Urobilinogen (0.2-1.0) EU/dL Ur Leukocyte Esterase (NEGATIVE) Urine RBC (0-5) Urine WBC (0-5) Ur Epithelial Cells Amorphous Sediment Urine Bacteria Urine Mucus SARS CoV-2 RNA Rapid DALY 10/08/21 10/08/21 10/08/21 Range/Units 18:55 18:58 19:00 WBC (4.5-11.0) K/uL RBC (4.30-5.90) M/uL Hgb (12.0-15.0) g/dL Hct (40.0-54.0) % MCV (80-98) fL MCH (27-31) pg MCHC (32-36) % Plt Count (150-400) K/uL VBG pH (7.350-7.450) Sodium (140-148) mmol/L Potassium (3.6-5.2) mmol/L Chloride (100-108) mmol/L Carbon Dioxide (21-32) mmol/L Anion Gap (5.0-14.0) mmol/L BUN (7-18) mg/dL Creatinine (0.8-1.3) mg/dL Est Cr Clr Drug Dosing mL/min Estimated GFR (MDRD) (>60) Glucose (74-106) mg/dL POC Glucose > 600 H* > 600 H* (74-106) MG/DL Calcium (8.5-10.1) mg/dL Magnesium 2.4 (1.8-2.4) mg/dL Urine Color (YELLOW) Urine Appearance (CLEAR) Urine pH (5.0-8.0) Ur Specific [place] (1.008-1.030) Urine Protein (NEGATIVE) mg/dL Urine Glucose (UA) (NEGATIVE) mg/dL Urine Ketones (NEGATIVE) mg/dL Urine Occult Blood (NEGATIVE) Urine Nitrite (NEGATIVE) Urine Bilirubin (NEGATIVE) Urine Urobilinogen (0.2-1.0) EU/dL Ur Leukocyte Esterase (NEGATIVE) Urine RBC (0-5) Urine WBC (0-5) Ur Epithelial Cells Amorphous Sediment Urine Bacteria Urine Mucus SARS CoV-2 RNA Rapid DALY 10/08/21 10/08/21 10/08/21 Range/Units 19:07 19:49 20:00 WBC (4.5-11.0) K/uL RBC (4.30-5.90) M/uL Hgb (12.0-15.0) g/dL Hct (40.0-54.0) % MCV (80-98) fL MCH (27-31) pg MCHC (32-36) % Plt Count (150-400) K/uL VBG pH (7.350-7.450) Sodium (140-148) mmol/L Potassium (3.6-5.2) mmol/L Chloride (100-108) mmol/L Carbon Dioxide (21-32) mmol/L Anion Gap (5.0-14.0) mmol/L BUN (7-18) mg/dL Creatinine (0.8-1.3) mg/dL Est Cr Clr Drug Dosing mL/min Estimated GFR (MDRD) (>60) Glucose 561 H* (74-106) mg/dL POC Glucose 459 H* (74-106) MG/DL Calcium (8.5-10.1) mg/dL Magnesium (1.8-2.4) mg/dL Urine Color (YELLOW) Urine Appearance (CLEAR) Urine pH (5.0-8.0) Ur Specific [place] (1.008-1.030) Urine Protein (NEGATIVE) mg/dL Urine Glucose (UA) (NEGATIVE) mg/dL Urine Ketones (NEGATIVE) mg/dL Urine Occult Blood (NEGATIVE) Urine Nitrite (NEGATIVE) Urine Bilirubin (NEGATIVE) Urine Urobilinogen (0.2-1.0) EU/dL Ur Leukocyte Esterase (NEGATIVE) Urine RBC (0-5) Urine WBC (0-5) Ur Epithelial Cells Amorphous Sediment Urine Bacteria Urine Mucus SARS CoV-2 RNA Rapid DALY Positive H 10/08/21 10/08/21 10/08/21 Range/Units 20:59 22:00 22:56 WBC (4.5-11.0) K/uL RBC (4.30-5.90) M/uL Hgb (12.0-15.0) g/dL Hct (40.0-54.0) % MCV (80-98) fL MCH (27-31) pg MCHC (32-36) % Plt Count (150-400) K/uL VBG pH (7.350-7.450) Sodium (140-148) mmol/L Potassium (3.6-5.2) mmol/L Chloride (100-108) mmol/L Carbon Dioxide (21-32) mmol/L Anion Gap (5.0-14.0) mmol/L BUN (7-18) mg/dL Creatinine (0.8-1.3) mg/dL Est Cr Clr Drug Dosing mL/min Estimated GFR (MDRD) (>60) Glucose (74-106) mg/dL POC Glucose 366 H 293 H 240 H (74-106) MG/DL Calcium (8.5-10.1) mg/dL Magnesium (1.8-2.4) mg/dL Urine Color (YELLOW) Urine Appearance (CLEAR) Urine pH (5.0-8.0) Ur Specific [place] (1.008-1.030) Urine Protein (NEGATIVE) mg/dL Urine Glucose (UA) (NEGATIVE) mg/dL Urine Ketones (NEGATIVE) mg/dL Urine Occult Blood (NEGATIVE) Urine Nitrite (NEGATIVE) Urine Bilirubin (NEGATIVE) Urine Urobilinogen (0.2-1.0) EU/dL Ur Leukocyte Esterase (NEGATIVE) Urine RBC (0-5) Urine WBC (0-5) Ur Epithelial Cells Amorphous Sediment Urine Bacteria Urine Mucus SARS CoV-2 RNA Rapid DALY 10/08/21 10/08/21 10/09/21 Range/Units 23:00 23:56 00:58 WBC (4.5-11.0) K/uL RBC (4.30-5.90) M/uL Hgb (12.0-15.0) g/dL Hct (40.0-54.0) % MCV (80-98) fL MCH (27-31) pg MCHC (32-36) % Plt Count (150-400) K/uL VBG pH (7.350-7.450) Sodium 134 L (140-148) mmol/L Potassium 4.9 (3.6-5.2) mmol/L Chloride 99 L (100-108) mmol/L Carbon Dioxide 15 L (21-32) mmol/L Anion Gap 24.9 H (5.0-14.0) mmol/L BUN 25 H (7-18) mg/dL Creatinine 1.5 H (0.8-1.3) mg/dL Est Cr Clr Drug Dosing 77.24 mL/min Estimated GFR (MDRD) 57 L (>60) Glucose 250 H (74-106) mg/dL POC Glucose 191 H 190 H (74-106) MG/DL Calcium 9.1 (8.5-10.1) mg/dL Magnesium (1.8-2.4) mg/dL Urine Color (YELLOW) Urine Appearance (CLEAR) Urine pH (5.0-8.0) Ur Specific [place] (1.008-1.030) Urine Protein (NEGATIVE) mg/dL Urine Glucose (UA) (NEGATIVE) mg/dL Urine Ketones (NEGATIVE) mg/dL Urine Occult Blood (NEGATIVE) Urine Nitrite (NEGATIVE) Urine Bilirubin (NEGATIVE) Urine Urobilinogen (0.2-1.0) EU/dL Ur Leukocyte Esterase (NEGATIVE) Urine RBC (0-5) Urine WBC (0-5) Ur Epithelial Cells Amorphous Sediment Urine Bacteria Urine Mucus SARS CoV-2 RNA Rapid DALY 10/09/21 10/09/21 10/09/21 Range/Units 01:56 02:56 03:09 WBC (4.5-11.0) K/uL RBC (4.30-5.90) M/uL Hgb (12.0-15.0) g/dL Hct (40.0-54.0) % MCV (80-98) fL MCH (27-31) pg MCHC (32-36) % Plt Count (150-400) K/uL VBG pH (7.350-7.450) Sodium (140-148) mmol/L Potassium (3.6-5.2) mmol/L Chloride (100-108) mmol/L Carbon Dioxide (21-32) mmol/L Anion Gap (5.0-14.0) mmol/L BUN (7-18) mg/dL Creatinine (0.8-1.3) mg/dL Est Cr Clr Drug Dosing mL/min Estimated GFR (MDRD) (>60) Glucose (74-106) mg/dL POC Glucose 166 H 144 H (74-106) MG/DL Calcium (8.5-10.1) mg/dL Magnesium (1.8-2.4) mg/dL Urine Color Yellow (YELLOW) Urine Appearance Clear (CLEAR) Urine pH 5.5 (5.0-8.0) Ur Specific [place] 1.025 (1.008-1.030) Urine Protein 30 H (NEGATIVE) mg/dL Urine Glucose (UA) 500 H (NEGATIVE) mg/dL Urine Ketones >=160 H (NEGATIVE) mg/dL Urine Occult Blood Negative (NEGATIVE) Urine Nitrite Negative (NEGATIVE) Urine Bilirubin Small H (NEGATIVE) Urine Urobilinogen 0.2 (0.2-1.0) EU/dL Ur Leukocyte Esterase Negative (NEGATIVE) Urine RBC 0-5 (0-5) Urine WBC 0-5 (0-5) Ur Epithelial Cells Few Amorphous Sediment Not seen Urine Bacteria Few Urine Mucus Not seen SARS CoV-2 RNA Rapid DALY 10/09/21 10/09/21 10/09/21 Range/Units 03:35 05:09 05:56 WBC (4.5-11.0) K/uL RBC (4.30-5.90) M/uL Hgb (12.0-15.0) g/dL Hct (40.0-54.0) % MCV (80-98) fL MCH (27-31) pg MCHC (32-36) % Plt Count (150-400) K/uL VBG pH (7.350-7.450) Sodium 137 L (140-148) mmol/L Potassium 4.6 (3.6-5.2) mmol/L Chloride 101 (100-108) mmol/L Carbon Dioxide 21 (21-32) mmol/L Anion Gap 19.6 H (5.0-14.0) mmol/L BUN 22 H (7-18) mg/dL Creatinine 1.6 H (0.8-1.3) mg/dL Est Cr Clr Drug Dosing 72.42 mL/min Estimated GFR (MDRD) 53 L (>60) Glucose 153 H (74-106) mg/dL POC Glucose 150 H 146 H (74-106) MG/DL Calcium 8.7 (8.5-10.1) mg/dL Magnesium (1.8-2.4) mg/dL Urine Color (YELLOW) Urine Appearance (CLEAR) Urine pH (5.0-8.0) Ur Specific [place] (1.008-1.030) Urine Protein (NEGATIVE) mg/dL Urine Glucose (UA) (NEGATIVE) mg/dL Urine Ketones (NEGATIVE) mg/dL Urine Occult Blood (NEGATIVE) Urine Nitrite (NEGATIVE) Urine Bilirubin (NEGATIVE) Urine Urobilinogen (0.2-1.0) EU/dL Ur Leukocyte Esterase (NEGATIVE) Urine RBC (0-5) Urine WBC (0-5) Ur Epithelial Cells Amorphous Sediment Urine Bacteria Urine Mucus SARS CoV-2 RNA Rapid DALY 10/09/21 10/09/21 10/09/21 Range/Units 06:56 06:59 06:59 WBC 12.6 H (4.5-11.0) K/uL RBC 4.99 (4.30-5.90) M/uL Hgb 14.6 D (12.0-15.0) g/dL Hct 43.5 (40.0-54.0) % MCV 87 (80-98) fL MCH 29 (27-31) pg MCHC 34 (32-36) % Plt Count 323 (150-400) K/uL VBG pH (7.350-7.450) Sodium 136 L (140-148) mmol/L Potassium 4.6 (3.6-5.2) mmol/L Chloride 103 (100-108) mmol/L Carbon Dioxide 22 (21-32) mmol/L Anion Gap 15.6 H (5.0-14.0) mmol/L BUN 21 H (7-18) mg/dL Creatinine 1.3 (0.8-1.3) mg/dL Est Cr Clr Drug Dosing 89.13 mL/min Estimated GFR (MDRD) > 60 (>60) Glucose 174 H (74-106) mg/dL POC Glucose 173 H (74-106) MG/DL Calcium 8.4 L (8.5-10.1) mg/dL Magnesium (1.8-2.4) mg/dL Urine Color (YELLOW) Urine Appearance (CLEAR) Urine pH (5.0-8.0) Ur Specific [place] (1.008-1.030) Urine Protein (NEGATIVE) mg/dL Urine Glucose (UA) (NEGATIVE) mg/dL Urine Ketones (NEGATIVE) mg/dL Urine Occult Blood (NEGATIVE) Urine Nitrite (NEGATIVE) Urine Bilirubin (NEGATIVE) Urine Urobilinogen (0.2-1.0) EU/dL Ur Leukocyte Esterase (NEGATIVE) Urine RBC (0-5) Urine WBC (0-5) Ur Epithelial Cells Amorphous Sediment Urine Bacteria Urine Mucus SARS CoV-2 RNA Rapid DALY 10/09/21 10/09/21 10/09/21 Range/Units 08:14 08:58 10:13 WBC (4.5-11.0) K/uL RBC (4.30-5.90) M/uL Hgb (12.0-15.0) g/dL Hct (40.0-54.0) % MCV (80-98) fL MCH (27-31) pg MCHC (32-36) % Plt Count (150-400) K/uL VBG pH (7.350-7.450) Sodium (140-148) mmol/L Potassium (3.6-5.2) mmol/L Chloride (100-108) mmol/L Carbon Dioxide (21-32) mmol/L Anion Gap (5.0-14.0) mmol/L BUN (7-18) mg/dL Creatinine (0.8-1.3) mg/dL Est Cr Clr Drug Dosing mL/min Estimated GFR (MDRD) (>60) Glucose (74-106) mg/dL POC Glucose 170 H 170 H 186 H (74-106) MG/DL Calcium (8.5-10.1) mg/dL Magnesium (1.8-2.4) mg/dL Urine Color (YELLOW) Urine Appearance (CLEAR) Urine pH (5.0-8.0) Ur Specific [place] (1.008-1.030) Urine Protein (NEGATIVE) mg/dL Urine Glucose (UA) (NEGATIVE) mg/dL Urine Ketones (NEGATIVE) mg/dL Urine Occult Blood (NEGATIVE) Urine Nitrite (NEGATIVE) Urine Bilirubin (NEGATIVE) Urine Urobilinogen (0.2-1.0) EU/dL Ur Leukocyte Esterase (NEGATIVE) Urine RBC (0-5) Urine WBC (0-5) Ur Epithelial Cells Amorphous Sediment Urine Bacteria Urine Mucus SARS CoV-2 RNA Rapid DALY 10/09/21 Range/Units 13:33 WBC (4.5-11.0) K/uL RBC (4.30-5.90) M/uL Hgb (12.0-15.0) g/dL Hct (40.0-54.0) % MCV (80-98) fL MCH (27-31) pg MCHC (32-36) % Plt Count (150-400) K/uL VBG pH (7.350-7.450) Sodium (140-148) mmol/L Potassium (3.6-5.2) mmol/L Chloride (100-108) mmol/L Carbon Dioxide (21-32) mmol/L Anion Gap (5.0-14.0) mmol/L BUN (7-18) mg/dL Creatinine (0.8-1.3) mg/dL Est Cr Clr Drug Dosing mL/min Estimated GFR (MDRD) (>60) Glucose (74-106) mg/dL POC Glucose 188 H (74-106) MG/DL Calcium (8.5-10.1) mg/dL Magnesium (1.8-2.4) mg/dL Urine Color (YELLOW) Urine Appearance (CLEAR) Urine pH (5.0-8.0) Ur Specific [place] (1.008-1.030) Urine Protein (NEGATIVE) mg/dL Urine Glucose (UA) (NEGATIVE) mg/dL Urine Ketones (NEGATIVE) mg/dL Urine Occult Blood (NEGATIVE) Urine Nitrite (NEGATIVE) Urine Bilirubin (NEGATIVE) Urine Urobilinogen (0.2-1.0) EU/dL Ur Leukocyte Esterase (NEGATIVE) Urine RBC (0-5) Urine WBC (0-5) Ur Epithelial Cells Amorphous Sediment Urine Bacteria Urine Mucus SARS CoV-2 RNA Rapid DALY Med Orders - Current: Current Medications Acetaminophen (Acetaminophen 325 Mg Tab) 650 mg PO Q4H PRN PRN Reason: Pain (Mild 1-3)/fever Dextrose/Water (50% Dextrose In Water 50 Ml Syringe) 50 ml IVPUSH ASDIRECTED PRN PRN Reason: Hypoglycemia Glucagon (Glucagon,Human Recombinant 1 Mg Vial) 1 mg IM ASDIRECTED PRN PRN Reason: Hypoglycemia Insulin Human Lispro (Insulin Lispro 100 Unit/Ml 3 Ml Kwikpen) 0 unit SUBCUT QIDACANDBED [facility]; Protocol Last Admin: 10/09/21 10:15 Dose: 1 unit Documented by: Insulin Human Lispro (Insulin Lispro 100 Unit/Ml 3 Ml Kwikpen) 0 unit SUBCUT TIEALS [facility] Last Admin: 10/09/21 13:50 Dose: Not Given Documented by: Lorazepam (Lorazepam 2 Mg/Ml Sdv) 0.5 mg IVPUSH Q4H PRN PRN Reason: Nausea/Vomiting Magnesium Hydroxide (Magnesium Hydroxide 400 Mg/5 Ml Susp 30 Ml Cup) 30 ml PO Q12H PRN PRN Reason: Constipation Melatonin (Melatonin 3 Mg Tab) 9 mg PO BEDTIME PRN PRN Reason: Sleep Ondansetron HCl (Ondansetron 4 Mg/2 Ml Sdv) 4 mg IV Q6H PRN PRN Reason: Nausea/Vomiting Ondansetron HCl (Ondansetron 4 Mg Tab.Dis) 4 mg PO Q6H PRN PRN Reason: Nausea able to take PO Senna/Docusate Sodium (Docusate Sodium/Sennosides 50-8.6 Mg Tab) 1 tab PO BID PRN PRN Reason: Constipation Discontinued Medications Lactated Ringer's (Ringers, Lactated) 1,000 mls @ 1,000 mls/hr IV BOLUS ONE Stop: 10/08/21 18:08 Last Admin: 10/08/21 17:51 Dose: 1,000 mls/hr Documented by: Insulin Regular in 0.9 % NACL (Myxredlin In Ns 100 Unit/100 Ml) 100 unit in 100 mls @ 10.569 mls/hr IV ASDIRECTED [facility] Last Admin: 10/08/21 18:04 Dose: 0.1 units/kg/hr, 10.569 mls/hr Documented by: Insulin Regular in 0.9 % NACL (Myxredlin In Ns 100 Unit/100 Ml) 100 mls @ 10.569 mls/hr IV ASDIRECTED [facility]; Protocol Stop: 10/09/21 11:00 Last Infusion: 10/09/21 06:58 Dose: 0.01 units/kg/hr, 1.5 mls/hr Documented by: Sodium Chloride (Normal Saline) 1,000 mls @ 125 mls/hr IV ASDIRECTED [facility] Last Admin: 10/09/21 03:06 Dose: 125 mls/hr Documented by: Dextrose/Sodium Chloride (Dextrose 5%-Normal Saline) 1,000 mls @ 125 mls/hr IV ASDIRECTED [facility] Stop: 10/09/21 11:00 Last Admin: 10/09/21 05:30 Dose: 125 mls/hr Documented by: Insulin Glargine (Insulin Glargine,Human Rec. Analog 100 Units/Ml 3 Ml Pen) 52 units SUBCUT ONETIME ONE Stop: 10/09/21 10:01 Last Admin: 10/09/21 10:10 Dose: 52 units Documented by: Insulin Human Isoph/Insulin Regular (Insulin Nph/Insulin Regular,Human 70-30 100 Units/Ml 10 Ml Vial) 20 units SUBCUT BIDAC [facility] Last Admin: 10/08/21 17:43 Dose: 20 unit Documented by: Ondansetron HCl (Ondansetron 4 Mg/2 Ml Sdv) 4 mg IVPUSH ONETIME ONE Stop: 10/08/21 17:11 Last Admin: 10/08/21 17:50 Dose: 4 mg Documented by:
== END 2021-10-09 16:00 | disposition home or self-care (01) | DRG 637 ==
LOC: JP.ED 15:53 → JP.ICU 18:32
PROVIDERS: ADMIT Internal Medicine; ATTEND Internal Medicine
DX: E10.10 Type 1 diabetes mellitus with ketoacidosis without coma (principal); U07.1 COVID-19; N17.9 Acute kidney failure, unspecified; Z79.4 Long term (current) use of insulin; E87.5 Hyperkalemia
CPT/HCPCS: 36415; 80048; 81001; 82800; 82947; 83735; 85027; 96374; 99285-25; J1815; J1815-GY; J2405; J7030; J7120; U0002